=== PATIENT | female | born 1935 | race Caucasian/White ===

== ENCOUNTER 2021-02-05 20:36 | Emergency (ER) | payer MEDICARE, OTHER, SELFPAY ==
--- NOTE | ~2021-02-05 | XR_ITS ---
EXAMINATION: XR hip LT 2V w AP pelvis EXAM DATE: 02/05/2021 21:47 INDICATION: Fall, left hip pain. TECHNIQUE: Left hip frontal, 'frog leg' projections for interpretation. Frontal projection pelvis. There is no prior study for comparison. FINDINGS: Smooth left hip femoral head contour, no radiographic evidence of avascular necrosis. Ther e are no acute fractures or dislocations identified. There is no subcutaneous gas. The soft tissue is unremarkable. 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 IMPRESSION: 1. Pelvis, left hip exam without acute osseous findings. Reviewed, dictated and finalized at location A.
--- NOTE | ~2021-02-05 | CT_ITS ---
EXAMINATION: CTA brain carotid EXAM DATE: 02/06/2021 00:30 INDICATION: Head CT abnormality, headache and dizziness. Twitching left side of body. TECHNIQUE: Spiral CTA of the carotid arteries was performed with intravenous injection 100 cc of Omn ipaque 350. Axial, coronal, sagittal reformatted images reviewed. Additional reformatted images crefransisco lopez on dedicated 3-D workstation. NASCET comparable standard used to assess the degree of arterial s tenosis. Spiral CT angiogram cerebral arteries performed with the same intravenous injection of cont rast. Source images of the brain CTA transferred to dedicated workstation for 3-D rotational image cr eation. Coronal, sagittal maximum intensity pixel images also reviewed. The dose-length product (DL P) for this examination was 907.51 mGy-cm. The exposure was tailored according to patient size, and iterative reconstruction (ASIR) was used as additional dose reduction technique. Correlation is made to noncontrast head CT earlier same date. FINDINGS: There is no carotid bulb plaque or stenosis. Mild bilateral carotid siphon arterial scleros is without stenosis. There is no carotid or vertebral basilar arterial dissection or fibromuscular d ysplasia. There are no cerebral artery aneurysms. There is symmetric cerebral artery arborization. Th e sagittal, transverse and sigmoid sinuses enhance normally, no venous sinus thrombosis. Internal cer ebral veins also enhance normally. No enhancement in the large region of abnormal density involving the medial aspect of the right tempo ral occipital lobe which could be an acute ischemic infarction, less likely subacute hemorrhagic infa rction or other mass. Follow-up head CT or MRI indicated to confirm expected evolution. Incidental Findings: Bilateral upper lobe subsegmental atelectasis. Cataract surgery. Microangiopathy , cerebral atrophy. IMPRESSION: 1. Bilateral carotid 0% stenosis. 2. Right temporal occipital abnormality without underlying enhancing mass. Most likely acute ischemi c infarction. Follow-up to confirm expected evolution. Reviewed, dictated and finalized at location A. IMPRESSION: 1. Bilateral carotid 0% stenosis. 2. Right temporal occipital abnormality without underlying enhancing mass. Mos t likely acute ischemic infarction. Follow-up to confirm expected evolution.
--- NOTE | ~2021-02-05 | CT_ITS ---
EXAMINATION: CT brain wo con EXAM DATE: 02/05/2021 21:36 INDICATION: Seizure. Fall. Uncontrolled movements. TECHNIQUE: Spiral CT of the head was performed without contrast. Axial, coronal and sagittal images were reviewed. The dose-length product (DLP) for this examination was 908.00 mGy-cm. The exposure w as tailored according to patient size, and iterative reconstruction (ASIR) was used as additional dos e reduction technique. There is no prior study for comparison. FINDINGS: Large heterogeneous region involving the white matter of the right temporal occipital lobes , region is ill-defined but measures approximately 5.5 x 2.5 cm. Differential diagnosis includes acut e to subacute infarction, subacute hemorrhagic infarction, brain mass. Please note that no enhancemen t was demonstrated on subsequent CT angiogram. Follow-up to resolution or brain MRI is indicated to c onfirm expected evolution assuming this is a ischemic infarction. There is moderate microangiopathy in mild cerebral atrophy. No calvarial fracture or scalp hematoma. Sinuses and mastoid air cells are well aerated. No obstructive hydrocephalus or extra-axial collectio ns. IMPRESSION: Large amount of right temporal occipital edema involving white more than foley matter. Dif ferential diagnosis includes acute to subacute ischemic infarction, less likely subacute hemorrhagic infarction, possibly underlying brain mass. Recommend follow-up. Patient was transferred to an acute care facility. Reviewed, dictated and finalized at location A. IMPRESSION: Large amount of right temporal occipital edema involving white more than foley matter. Differential diagnosis includes acute to subacute ischemic i nfarction, less likely subacute hemorrhagic infarction, possibly underlying bra in mass. Recommend follow-up. Patient was transferred to an acute care facility.
--- NOTE | ~2021-02-05 | XR_ITS ---
EXAMINATION: XR shoulder LT min 2V EXAM DATE: 02/05/2021 21:47 INDICATION: trauma, fall, left shoulder pain. TECHNIQUE: Frontal and lateral projections of the left shoulder. There is no prior study for compar angie. FINDINGS: There are left 6th through 9th rib fractures posteriorly which appear more likely chronic than acute findings. There is no left shoulder dislocation or fracture identified. Some left upper lo be subsegmental atelectasis. Thoracic scoliosis. IMPRESSION: 1. Left 6th-9th rib fractures more likely chronic. Reviewed, dictated and finalized at location A.
--- NOTE | ~2021-02-05 | XR_ITS ---
EXAMINATION: XR chest 1V EXAM DATE: 02/05/2021 21:47 INDICATION: Shortness of breath . TECHNIQUE: Portable AP frontal chest x-ray was obtained. Comparison is made to prior examination from 01/24/2018. FINDINGS: There is cardiomegaly and pulmonary vascular congestion. Some apical scarring and chondral cartilage calcification. Bilateral upper lobe subsegmental atelectasis (correlation was made with CT carotid 02/05). No confluent consolidation or pneumothorax. No pleural effusion. The bones are osteope yang. There are bony degenerative changes. Severe thoracic dextroscoliosis. IMPRESSION: 1. Cardiomegaly, pulmonary vascular congestion. 2. Linear upper lobe subsegmental atelectasis. Reviewed, dictated and finalized at location A.
[2021-02-05 20:43] VITALS: BP 135/88; PULSE 96; RESP 42; O2SAT 89
[2021-02-05] MEDS: LORazepam INJ (*CRX) 2 MG/ML VIAL (21:08)
[2021-02-05] MEDS: levETIRAcetam 1000MG/NACL100ML 1,000 MG/100 ML BAG 400 MG IVPB (21:21)
[2021-02-05 21:36] LABS: Basophils Absolute Auto 0.1 K/mm3 (0.0-0.1); Basophils Percent Auto 0.5 % (0.2-1.2); Eosinophils Absolute Auto 0.1 K/mm3 (0-0.3); Eosinophils Percent Auto 0.8 % (0-4.4); Hematocrit 43.3 % (37.0-47.0); Immature Granulocyte Absolute 0.05 K/mm3 (0.00-0.031); Immature Granulocyte Percent A 0.5 % (0-0.5); Lymphocytes Absolute Auto 1.14 K/mm3 (0.9-3.2); Lymphocytes Percent Auto 10.3 % (18.3-44.2); Mean Corpuscular HGB Conc 34.6 g/dl (32-36); Mean Corpuscular Hemoglobin 32.4 pg (26-34); Mean Corpuscular Volume 93.5 fl (80-100); Mean Platelet Volume 11.4 fl (7.4-10.4); Monocytes Absolute Auto 0.7 K/mm3 (0.1-0.6); Monocytes Percent Auto 6.1 % (2.6-8.5); Neutrophils Percent Auto 81.8 % (45.5-73.1); Platelet Count Result 172 k/mm3 (150-375); Red Blood Count 4.63 M/mm3 (4.2-5.4); White Blood Count 11.1 K/mm3 (4.5-10.0)
[2021-02-05 21:49] LABS: Prothrombin Time 13.5 Seconds (11.1-14.7)
[2021-02-05 21:50] LABS: Anion Gap 11 mmol/L (8-16); Blood Urea Nitrogen 26 mg/dL (7-17); Calcium 9.8 mg/dL (8.4-10.2); Carbon Dioxide 33 mmol/L (22-30); Chloride 92 mmol/L (98-107); Estimated Glomerular Filt Rate 33; Glucose 165 mg/dL (65-110); Partial Thromboplastin Time 28.1 SECONDS (22.3-36.8); Potassium 3.8 mmol/L (3.4-5.0); Sodium 136 mmol/L (137-145)
[2021-02-05 22:03] LABS: NT Pro B Type Natriuretic Pept 2150 pg/mL (5-100); Troponin I 0.017 ng/mL (0.000-0.034)
[2021-02-05 22:06] VITALS: BP 125/71; PULSE 88; RESP 28; O2SAT 94
--- NOTE | 2021-02-05 23:14 | ED.FALL ---
HPI - Fall General Chief Complaint: Fall Stated Complaint: fall/ shoulder injury Time Seen by Provider: 02/05/21 20:48 History of Present Illness HPI Narrative: Patient is an 85-year-old female who presents ER status post fall. Apparently patient was on the phone and fell onto the ground. She been down for about 45 minutes prior to EMS arrival. Patient is awake and alert but poorly answering questions. She has some rhythmic jerking of her left lower extremity in her left upper extremity. No shortness report was that patient had pain in her left shoulder. She reports that she cannot use her left shoulder chronically and has to use her other arm to assist it and lifting due to rotator cuff issues. Patient has history of atrial fibrillation but is not on blood thinners. No visual evidence of trauma. Upon arrival patient found to be hypoxic. Related Data Home Medications Medication Instructions Recorded Confirmed allopurinol 02/05/21 carvedilol 02/05/21 furosemide 02/05/21 furosemide 02/05/21 metolazone 02/05/21 pantoprazole PO 02/05/21 spironolactone 02/05/21 Allergies Allergy/AdvReac Type Severity Reaction Status Date / Time tramadol Allergy Intermediate Itching Verified 10/01/17 11:08 Review of Systems Review of Systems: ROS unobtainable: Yes unobtainable due to medical condition Cardiovascular: Cardiovascular: Denies chest pain and Denies radiating jaw, neck or arm pain Respiratory: Respiratory: Denies cough, Denies dyspnea and Denies wheezing Musculoskeletal: Musculoskeletal: Reports arthralgias and Denies joint swelling Neurologic: Denies headache(s) and Denies numbness PMFSH Past Medical History Medical History (Updated 02/06/21 @ 03:06 by Deepak Galicia MD) Atrial fibrillation CHF (congestive heart failure) Diabetes Hyperlipidemia Hypertension Surgical History Surgical History (Updated 02/05/21 @ 23:22 by Deepak Galicia MD) History of hysterectomy Social History Social History (Updated 02/05/21 @ 23:22 by Deepak aGlicia MD) 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 HEAD: Normocephalic, atraumatic. EYES: PERRL and EOMI. patient with leftward gaze but is able to come back right of midline. ENT: Dry mucous membranes. CHEST: Clear to auscultation. No respiratory distress. HEART: Regular rate and rhythm. Normal peripheral pulses. ABDOMEN: Soft, nontender, nondistended. EXTREMITIES: Unable to lift the left lower extremity and left arm off the bed but with seizure activity and moves extremities. Normal strength in right upper and lower extremity. SKIN: Warm, dry, no rash. NEURO: Patient with poor effort against gravity in left and left upper and lower extremity. Patient has rhythmic jerking of the left lower extremity and of the left shoulder consistent with seizure. Patient with leftward gaze and partial neglect of the right side however she cannot turn herself over to face right and identify objects on that side. No sensory deficit. No slurred speech or expressive aphasia. Alert and oriented x3. PSYCH: Normal mood and affect. Course Reevaluation(s) Reevaluation #1: Discussed case with patient's daughter and son. Patient's POA Dr. Pizano is an internal medicine physician near [place]. I discussed that there is a poor history of patient's last known normal. He does not think that patient would want TPA therapy. Patient is sleepy and was confused earlier and did not seem to be able to make informed decision of this magnitude. We are contacting [facility] for further evaluation as there is no neurology service present at this hospital this weekend. Date: 02/05/21 Time: 23:19 Reevaluation #2: Discussed case with neurology at [facility]. We have obtained CTA of the brain and neck at their request. No large vessel occlusion. Patient is accepted to their g
[2021-02-05] MEDS: FUROSEMIDE INJ 40 MG/4 ML VIAL IV PUSH (23:32)
[2021-02-06 02:00] VITALS: BP 102/68; PULSE 74; RESP 28; O2SAT 97
[2021-02-06 02:22] LABS: EDCOVIDSCREEN Negative (Negative)
[2021-02-06 03:40] VITALS: BP 100/79; PULSE 79; RESP 22; O2SAT 96
--- NOTE | 2021-02-06 04:42 | PC.NURSE ---
l[facility] transported to [place]
== END 2021-02-06 04:41 | disposition short-term general hospital (02) ==
PROVIDERS: Emergency Provider Emergency Medicine; PCP Family Medicine Adolescent Medicine
DX: I63.9 Cerebral infarction, unspecified (principal); R56.9 Unspecified convulsions; I50.9 Heart failure, unspecified; I11.0 Hypertensive heart disease with heart failure; I48.91 Unspecified atrial fibrillation; E11.9 Type 2 diabetes mellitus without complications; E78.5 Hyperlipidemia, unspecified; Z20.822 Contact with and (suspected) exposure to COVID-19; R29.708 NIHSS score 8; I51.7 Cardiomegaly
CPT/HCPCS: 36415; 70450; 70496; 70498; 71045; 73030; 73502; 80048; 83880; 84484; 85025; 85610; 85730; 87426; 96365; 96375; 99285; C9803; J1940; J1953; J2060; Q9967

== ENCOUNTER 2021-03-05 07:17 | Inpatient (IN) | payer MEDICARE, OTHER, SELFPAY ==
[2021-03-05] VITALS (10 sets, daily range): BP systolic 108–119; BP diastolic 60–71; PULSE 70–96; RESP 16–24; TEMP 36.7–37.8; O2SAT 91–95; BMI 27.7
--- NOTE | ~2021-03-05 | US_ITS ---
EXAMINATION: US venous doppler [facility] DATE: 03/07/2021 08:07 INDICATION: Lower limb swelling TECHNIQUE: Bernard scale images without and with compression and Doppler images of the bilateral lower e xtremity veins were obtained. COMPARISON: 10/01/2017 FINDINGS: There is thrombosis in the right popliteal vein. The right common femoral vein, profunda femoral vein , femoral vein, peroneal trunk, posterior tibial veins, and greater saphenous vein are patent. There is superficial venous thrombosis of the left greater saphenous vein. The left common femoral ve in, profunda femoral vein, femoral vein, popliteal vein, peroneal trunk, and posterior tibial veins a re patent. IMPRESSION: 1. Thrombosis of the right popliteal vein. 2. Superficial venous thrombosis of the left greater saphenous vein. These findings were discussed with TOMASA Ulloa on [facility] at 0814 hours on 03/07/2021. Reviewed, dictated and finalized at location A.
--- NOTE | ~2021-03-05 | XR_ITS ---
EXAMINATION: XR chest 1V portable INDICATION: Shortness of breath TECHNIQUE: Portable AP chest at 0833 hours COMPARISON: 02/05/2021 FINDINGS: There are small pleural effusions. Cardiomegaly is noted. There is a mild diffuse interstit ial pattern. No pneumothorax is identified. There is stable atelectasis of the left midlung zone. Hea led right-sided rib fractures are noted. IMPRESSION: 1. Cardiomegaly with mild pulmonary edema. 2. Small pleural effusions. Reviewed, dictated and finalized at location A.
--- NOTE | ~2021-03-05 | XR_ITS ---
EXAMINATION: XR chest 2V DATE: 03/11/2021 14:12 INDICATION: Congestive heart failure. TECHNIQUE: Frontal and lateral views of the chest were obtained. COMPARISON: Chest single view 03/07/2021, chest CT 03/05/2021 FINDINGS: There are small pleural effusions. There is mild atelectasis in left midlung zone and at le ft lung base. No pneumothorax. Cardiomegaly is noted. There are old healed right rib fractures. There is thoracic dextroscoliosis and kyphosis. There is chronic height loss of multiple vertebral bodies. IMPRESSION: 1. Small pleural effusions. 2. Mild atelectasis in left midlung zone and at left lung base. 3. Cardiomegaly. Reviewed, dictated and finalized at location A.
--- NOTE | ~2021-03-05 | CT_ITS ---
EXAMINATION: CTA chest PE protocol DATE: 03/05/2021 09:50 INDICATION: Shortness of breath, postoperative hypoxia TECHNIQUE: Computed tomography angiography (CTA) of the chest was performed with 100 mL Omnipaque-350 intravenous contrast timed to evaluate the pulmonary arteries. Coronal maximum intensity projection 3D-reconstructions were created by the technologist. The dose-length product (DLP) was 651.46 mGy-cm. Automated exposure control and iterative reconstruction technique were employed. COMPARISON: 01/24/2018 FINDINGS: The pulmonary arteries are well-opacified. No pulmonary embolism is identified. There are s [id number] pleural effusions. Cardiomegaly is noted. There is passive dependent atelectasis. No pneumothorax is identified. There are no pathologically enlarged thoracic lymph nodes. There is nodu larity of the liver surface. There are chronic burst fractures of T7 and T8 without significant carlson e. Multiple healed bilateral rib fractures are noted. IMPRESSION: 1. No pulmonary embolism identified. 2. Small to moderate-sized pleural effusions with dependent atelectasis. 3. Cirrhosis Reviewed, dictated and finalized at location A.
--- NOTE | ~2021-03-05 | XR_ITS ---
EXAMINATION: XR chest 1V EXAM DATE: 03/07/2021 08:09 INDICATION: Shortness of breath. TECHNIQUE: Portable AP frontal chest x-ray was obtained. Comparison is made to prior examination from 03/05/2021. FINDINGS: There is moderate to severe thoracolumbar scoliosis. Cardiomegaly and pulmonary vascular co ngestion. Some linear left midlung zone atelectasis. Improvement in previously seen mild pulmonary ed tiago. There are still some more than expected retrocardiac density, nonspecific airspace disease. Box Feeder yang underlying hyperinflation. No pneumothorax. The bones are osteopenic. There are bony degenerativ e changes. IMPRESSION: 1. Cardiomegaly. Improvement in pulmonary edema. 2. Persistent left lower lobe nonspecific airspace disease. Reviewed, dictated and finalized at location B.
[2021-03-05 07:59] LABS: Alveolar/Arterial O2 Gradient 59.5 mmHg; Base Excess ABG 5.6 mEq/l (+/-2.0); Carboxyhemoglobin 0.7 % THb (0-2.0); Fractional Inspired Oxygen 21 %; Methemoglobin ABG 0.4 %THb (0-1.5); Oxygen Content ABG 16.2 %vol (16.0-22.0); Oxygen Saturation ABG 89.8 % (95.0-100.0); Oxyhemoglobin 86.2 % THb (90.0-100.0); PCO2 ABG 33.7 mmHg (35.0-45.0); PO2 FiO2 Ratio Arterial Blood 2.38 %; Reduced Hemoglobin 12.7 %THb (0-5.0); Total Hemoglobin 13.4 g/dL (12.0-18.0)
[2021-03-05 08:01] LABS: pH ABG 7.538 (7.350-7.450)
[2021-03-05 08:02] LABS: Device ROOM AIR; Modified Allen's Test Pass; PO2 ABG 49.9 mmHg (80.0-100.0); Site Drawn LEFT RADIAL
--- NOTE | 2021-03-05 08:08 | ED.SOB ---
HPI - SOB/Dyspnea General Chief Complaint: Shortness of Breath/Dyspnea Stated Complaint: sob Time Seen by Provider: 03/05/21 07:21 Source: patient and RN notes reviewed Mode of arrival: EMS Limitations: no limitations History of Present Illness HPI Narrative: This is an 85 year old female with history CHF, CVA who presents for evaluation of hypoxia and shortness of breath. Patient reports shortness of breath since she was hospitalized for a stroke 1 month ago. This morning staff at [facility] found patient to have oxygen saturation 86% on room so they placed on [place] oxygen with nebulizer treatment. She was then transferred her to [place] for evaluation. Patient states she feels better but she still has some shortness of breath. She has bilateral rib pain since her hospitalization last month. She reports multiple rib fractures and she has been pulled around alot per patient. She has mild nonproductive cough. She denies nausea, vomiting and unsure of fever. She received her COVID booster yesterday. Patient reports she suffered of left ankle fracture and CVA 1 month ago. She had left ankle surgery 1 month ago during her hospitalization at [facility] for her CVA. Related Data Home Medications Medication Instructions Recorded Confirmed allopurinol 100 mg PO DAILY 02/05/21 03/05/21 carvedilol 3.125 mg PO BID 02/05/21 03/05/21 furosemide 40 mg PO QAM 02/05/21 03/05/21 furosemide 80 mg PO QAM 02/05/21 03/05/21 metolazone 2.5 mg PO DAILY 02/05/21 03/05/21 pantoprazole 40 mg PO DAILY 02/05/21 03/05/21 spironolactone 02/05/21 diclofenac sodium 1 TOPICAL BID 03/05/21 metformin 500 mg PO DAILY 03/05/21 03/05/21 potassium chloride 60 meq PO DAILY 03/05/21 03/05/21 Allergies Allergy/AdvReac Type Severity Reaction Status Date / Time tramadol Allergy Intermediate Itching Verified 10/01/17 11:08 Review of Systems Review of Systems: All systems reviewed & are unremarkable except as noted in HPI and below Constitutional: Constitutional: Denies chills and Denies fever(s) Cardiovascular: Cardiovascular: Reports chest pain and Denies radiating jaw, neck or arm pain Respiratory: Respiratory: Reports cough and Reports dyspnea Gastrointestinal: Gastrointestinal: Denies abdominal pain, Denies nausea and Denies vomiting Neurologic: Denies headache(s) [facility] Past Medical History Medical History (Updated 03/05/21 @ 18:19 by Camille Miramontes MD) Atrial fibrillation CHF (congestive heart failure) CVA (cerebral vascular accident) Diabetes DM2 (diabetes mellitus, type 2) Gout Hyperlipidemia Hypertension Surgical History Surgical History (Updated 03/05/21 @ 15:17 by Zaida Huber NP) History of ankle surgery left ankle x2 History of hysterectomy Family History Family History (Updated 03/05/21 @ 15:23 by Zaida Huber NP) Mother Dementia Father Dementia Social History Social History (Updated 03/05/21 @ 15:24 by Zaida Huber NP) Social History: the patient did live at home on her own until about 1 month ago when she had a stroke and fractured her left ankle. She is and has 3 children. 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 She stated that cyrus and Jorge Luis are her power divorce attorney for healthcare. She stated that her son Cyrus is the physician. Code status full code Smoking status: Never smoker Second hand tobacco smoke exposure: No Alcohol intake: never Substance use: never Spiritual care concerns: No Exam Const: General: no acute distress and alert Orientation/consciousness: patient oriented x3 Eyes: EOM: EOMs intact bilaterally Chest: Chest palpation & inspection: normal inspection of the chest Resp: Effort & Inspection: normal respiratory effort and no retractions Auscultation: clear to auscultation bilaterally Cardio: Rate: regular rate Rhythm: regular rhythm Heart sounds: no murmurs GI: GI Palp: Yes So
[2021-03-05 08:30] LABS: Basophils Percent Auto 0.5 % (0.2-1.2); Eosinophils Percent Auto 0.1 % (0-4.4); Hematocrit 37.8 % (37.0-47.0); Hemoglobin 12.8 g/dL (12.0-15.0); Immature Granulocyte Absolute 0.05 K/mm3 (0.00-0.031); Immature Granulocyte Percent A 0.6 % (0-0.5); Immature Platelet Fraction Pct 3.6 % (0.9-11.2); Lymphocytes Percent Auto 3.8 % (18.3-44.2); Mean Corpuscular HGB Conc 33.9 g/dl (32-36); Mean Corpuscular Hemoglobin 31.2 pg (26-34); Mean Corpuscular Volume 92.2 fl (80-100); Monocytes Absolute Auto 0.4 K/mm3 (0.1-0.6); Platelet Count Result 127 k/mm3 (150-375); Red Cell Distribution Width 14.5 % (11.5-14.5); White Blood Count 7.8 K/mm3 (4.5-10.0)
[2021-03-05 08:31] LABS: Anion Gap 5 mmol/L (8-16); Blood Urea Nitrogen 12 mg/dL (7-17); Calcium 8.7 mg/dL (8.4-10.2); Carbon Dioxide 30 mmol/L (22-30); Chloride 100 mmol/L (98-107); Estimated CRCL calculation 41 ml/min; Estimated Glomerular Filt Rate 60; Glucose 126 mg/dL (65-110); Sodium 135 mmol/L (137-145)
[2021-03-05 08:34] LABS: Alanine Aminotransferase 12 U/L (4-35); Albumin Level 3.3 g/dL (3.5-5.1); Alkaline Phosphatase 192 U/L (38-126); Aspartate Amino Transferase 26 U/L (14-36); Bilirubin,Total 1.4 mg/dL (0.2-1.3); Lipase 40 U/L (23-300)
[2021-03-05 08:43] LABS: NT Pro B Type Natriuretic Pept 3660 pg/mL (5-100); Troponin I < 0.012 ng/mL (0.000-0.034)
[2021-03-05 09:34] LABS: Add Urine Microscopic? YES; Appearance Urine Clear (Clear); Bilirubin Urine Negative (Negative); Blood Urine Negative (Negative); Color Urine Yellow (Yellow); Glucose Urine UA Negative (Negative); Ketones Urine Negative (Negative); Leukocyte Esterase Ur Negative LEU/UL (Negative); Nitrate Urine Negative (Negative); Protein Urine Negative (Negative); RBC Urine 0-2 /hpf (0-2); Specific Grav Ur 1.012 (1.001-1.035); Squamous Epithelial Cell Urine Few /hpf (Few); WBC Urine 0-3 /hpf
[2021-03-05 09:57] LABS: INR 1.2; Prothrombin Time 14.9 Seconds (11.1-14.7)
[2021-03-05 09:58] LABS: Partial Thromboplastin Time 31.2 SECONDS (22.3-36.8)
[2021-03-05] MEDS: FUROSEMIDE INJ 40 MG/4 ML VIAL IV PUSH ×2 (10:22→20:37)
--- NOTE | 2021-03-05 12:29 | ADMGEN ---
This patient, Radha Pizano, was admitted to Medical Room 248-01. Patient oriented to hospital policies and general routines including ID bracelet, bed and alarms, visiting hours, pain management, procedures, bathroom and other care routines, personal items, smoking policy, room service/diet, and visiting hours. Information on how to activate the Rapid Response Team has been discussed. Patient are encouraged to report perceived risks to care and to ask questions if they do not understand what they are told or what they should do.
--- NOTE | 2021-03-05 15:06 | PM.IMHP ---
H&P: HPI History of Present Illness Date/Time: 03/05/21 15:06Opal is a 85-year-old female patient who lives home alone prior to having a stroke and a left ankle fracture. The patient is currently at [facility] for rehab. She has a history of having CHF and CVA. She was brought into the emergency room for evaluation of shortness of breath. The patient stated that she has shortness breath with exertion that started today. She does not typically wear oxygen at the skilled nursing. Patient had her stroke approximately 1 month ago and had her left ankle surgery At [facility]. The patient's oxygen levels on be 86% on room air at [facility]. So she was placed on oxygen and given a nebulizer treatment. She was transferred to [facility] for evaluation. The patient has multiple rib fractures on the right. She has a mild nonproductive cough. She just had her booster vaccine of the Pfizer COVID-19 yesterday. Prior to that she has been fully vaccinated. BNP was 3660. Chest x-ray was read as cardiomegaly with mild pulmonary edema. Small pleural effusions. Chest CTA was read as no pulmonary emboli identified. Small to moderate size pleural effusions with dependent atelectasis. Cirrhosis. The patient was given IV Lasix in the emergency room. The patient is being admitted to observation status on the date of service of 03/05/2021 Chief Complaint: Shortness of breath Review of Systems Review of Systems: All systems reviewed & are unremarkable except as noted in HPI and below Constitutional: Constitutional: Reports as per HPI and Reports no additional constitutional complaints Eyes: Eyes: Reports as per HPI and Reports no additional eye complaints ENT: Reports system reviewed and no additional complaints, except as documented and Reports Normal hearing present Cardiovascular: Cardiovascular: Reports no additional cardiovascular complaints Respiratory: Respiratory: Reports no additional respiratory complaints and Reports no additional respiratory complaints Gastrointestinal: Gastrointestinal: Reports as per HPI and Reports no additional gastrointestinal complaints Musculoskeletal: Musculoskeletal: Reports no additional musculoskeletal complaints Integumentary/Breasts: Skin/Breast: Reports system reviewed and no additional complaints, except as docu and Reports as per HPI Neurologic: Reports system reviewed and no additional complaints, except as documented, Reports as per HPI and Reports Normal hearing present Psychiatric: Psychiatric: Reports no additional psychiatric complaints and Reports as per HPI Endocrine: Endocrine: Reports no additional endocrine complaints Hematologic/Lymphatic: Hematologic/Lymphatic: Reports no additional hematologic/lymphatic complaints Allergic/Immunologic: Allergic/Immunologic: Reports no additional allergic/immunologic complaints PMFSH Past Medical History Medical History (Updated 03/05/21 @ 15:35 by Zaida Huber NP) Atrial fibrillation CHF (congestive heart failure) CVA (cerebral vascular accident) Diabetes DM2 (diabetes mellitus, type 2) Gout Hyperlipidemia Hypertension Surgical History Surgical History (Updated 03/05/21 @ 15:17 by Zaida Huber NP) History of ankle surgery left ankle x2 History of hysterectomy Family History Family History (Updated 03/05/21 @ 15:23 by Zaida Huber NP) Mother Dementia Father Dementia Social History Social History (Updated 03/05/21 @ 15:24 by Zaida Huber NP) Social History: the patient did live at home on her own until about 1 month ago when she had a stroke and fractured her left ankle. She is and has 3 children. 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 She stated that cyrus and Jorge Luis are her power insurance attorney for healthcare. She stated that her son Cyrus is the physician. Code status full code Smoking status: Never smoker Jeanne
[2021-03-05] MEDS: LIDOCAINE 5% PATCH 1 PATCH TRANSDERM ×2 (17:35)
[2021-03-05] MEDS: carvediloL 3.125 MG TABLET PO (17:36)
[2021-03-05 17:56] LABS: Glucose Point of Care 121 mg/dl (65-105)
[2021-03-05 21:09] LABS: Glucose Point of Care 139 mg/dl (65-105)
[2021-03-06] VITALS (12 sets, daily range): BP systolic 103–129; BP diastolic 60–89; PULSE 73–91; RESP 18–20; TEMP 36.1–36.5; O2SAT 92–97
[2021-03-06 05:25] LABS: Basophils Absolute Auto 0.1 K/mm3 (0.0-0.1); Basophils Percent Auto 0.7 % (0.2-1.2); Eosinophils Absolute Auto 0.1 K/mm3 (0-0.3); Eosinophils Percent Auto 1.9 % (0-4.4); Hematocrit 37.1 % (37.0-47.0); Hemoglobin 12.4 g/dL (12.0-15.0); Immature Granulocyte Absolute 0.05 K/mm3 (0.00-0.031); Immature Granulocyte Percent A 0.7 % (0-0.5); Immature Platelet Fraction Pct 4.8 % (0.9-11.2); Lymphocytes Absolute Auto 0.67 K/mm3 (0.9-3.2); Lymphocytes Percent Auto 9.8 % (18.3-44.2); Mean Corpuscular HGB Conc 33.4 g/dl (32-36); Mean Corpuscular Hemoglobin 30.7 pg (26-34); Mean Corpuscular Volume 91.8 fl (80-100); Mean Platelet Volume 10.4 fl (7.4-10.4); Monocytes Absolute Auto 0.6 K/mm3 (0.1-0.6); Monocytes Percent Auto 8.7 % (2.6-8.5); Neutrophils Absolute Auto 5.4 K/mm3 (1.3-6.7); Neutrophils Percent Auto 78.2 % (45.5-73.1); Platelet Count Result 122 k/mm3 (150-375); Red Blood Count 4.04 M/mm3 (4.2-5.4); Red Cell Distribution Width 14.6 % (11.5-14.5); White Blood Count 6.9 K/mm3 (4.5-10.0)
[2021-03-06 05:41] LABS: Sodium 135 mmol/L (137-145)
[2021-03-06 05:45] LABS: Hemoglobin A1C 6.6 % (<5.7)
[2021-03-06 05:49] LABS: Alanine Aminotransferase 12 U/L (4-35); Alkaline Phosphatase 176 U/L (38-126); Anion Gap 5 mmol/L (8-16); Aspartate Amino Transferase 23 U/L (14-36); Bilirubin,Total 0.9 mg/dL (0.2-1.3); Blood Urea Nitrogen 12 mg/dL (7-17); Calcium 8.4 mg/dL (8.4-10.2); Carbon Dioxide 32 mmol/L (22-30); Chloride 98 mmol/L (98-107); Estimated CRCL calculation 38 ml/min; Estimated Glomerular Filt Rate 53; Glucose 108 mg/dL (65-110); Lactate Dehydrogenase 436 U/L (313-618); Magnesium 1.5 mg/dL (1.6-2.3); Potassium 3.2 mmol/L (3.4-5.0)
[2021-03-06 07:50] LABS: Glucose Point of Care 126 mg/dl (65-105)
--- NOTE | 2021-03-06 09:06 | PC.NURSE ---
unable to apply lidocaine patches on time. waiting for pharmacy to send them up. pharmacy notified
[2021-03-06] MEDS: metFORMIN HCL XR 500 MG TAB.SR.24H PO (09:09)
[2021-03-06] MEDS: FUROSEMIDE INJ 40 MG/4 ML VIAL IV PUSH ×2 (09:09→20:46)
[2021-03-06] MEDS: ENOXAPARIN 40 MG/0.4 ML SYRINGE SUB-Q (09:09)
[2021-03-06] MEDS: PANTOPRAZOLE 40 MG TABLET PO (09:09)
[2021-03-06] MEDS: carvediloL 3.125 MG TABLET PO ×2 (09:10→16:46)
[2021-03-06] MEDS: metOLazone 2.5 MG TABLET PO (09:10)
[2021-03-06] MEDS: allopurinoL 100 MG TABLET PO (09:10)
[2021-03-06] MEDS: POTASSIUM CHLORIDE 10 MEQ TABLET.ER 60 MEQ PO (09:10)
[2021-03-06] MEDS: LIDOCAINE 5% PATCH 1 PATCH TRANSDERM ×2 (09:11→20:46)
[2021-03-06 11:55] LABS: Glucose Point of Care 172 mg/dl (65-105)
[2021-03-06] MEDS: MAGNESIUM SULF 2 GM/WATER 50ML 2 GM/50 ML BAG IVPB (13:36)
[2021-03-06] MEDS: POTASSIUM CHLORIDE 20 MEQ TABLET 40 MEQ PO (13:36)
--- NOTE | 2021-03-06 15:33 | ECG_ITS ---
Measurements Intervals [place] Rate: 73 P: ND: 0 QRS: -12 QRSD: 95 T: -36 QT: 382 QTc: 422 Interpretive Statements ATRIAL FIBRILLATION INCOMPLETE RIGHT BUNDLE BRANCH BLOCK ANTEROSEPTAL INFARCT, AGE INDETERMINATE BORDERLINE T WAVE ABNORMALITY- DIFFUSE LEADS ABNORMAL ECG Electronically Signed On 03-06-2021 9:34:52 CDT by Stephen Osman D.O.
--- NOTE | 2021-03-06 15:54 | PM.IMPN ---
Progress Note: A&P Assessment and Plan (1) CHF (congestive heart failure): Code(s): I50.9 - Heart failure, unspecified Status: Chronic Assessment and Plan: continue with IV Lasix and Coreg. Echo has been ordered. CTA was negative for PE but shows moderate size pleural effusions and dependent atelectasis. The patient is currently on oxygen at 3 L per nasal cannula. She is short of breath with exertion. The patient does not typically wear oxygen at home. She states she normally takes 120 mg of Lasix along with potassium supplement Currently on 40 twice a day of IV Lasix Output has not been charted. Check echo (2) Atrial fibrillation: Code(s): I48.91 - Unspecified atrial fibrillation Status: Chronic Assessment and Plan: EKG with AFib rate controlled She is on Coreg. She does not appear to be on any anticoagulation. The patient does have a history of multiple falls. (3) CVA (cerebral vascular accident): Code(s): I63.9 - Cerebral infarction, unspecified Status: Chronic Assessment and Plan: No residual noted at this time. PT OT will be consulted (4) Hyperlipidemia: Code(s): E78.5 - Hyperlipidemia, unspecified Status: Chronic Assessment and Plan: the patient does not appear to be on any medication at this time. (5) Hypertension: Code(s): I10 - Essential (primary) hypertension Status: Chronic Assessment and Plan: Continue with Coreg (6) Gout: Code(s): M10.9 - Gout, unspecified Status: Chronic Assessment and Plan: continue with allopurinol (7) DM2 (diabetes mellitus, type 2): Code(s): E11.9 - Type 2 diabetes mellitus without complications Status: Chronic Assessment and Plan: Continue with metformin. Do sliding scale insulin. Monitor BMP daily. Accu-Cheks AC and HS. (8) Cirrhosis: Code(s): K74.60 - Unspecified cirrhosis of liver Status: Acute Assessment and Plan: Noted in CT scan chest. Likely cardiac in origin due to underlying history of congestive heart failure or HANSEN due to history of diabetes and hypertension (9) Hypomagnesemia: Code(s): E83.42 - Hypomagnesemia Status: Acute Assessment and Plan: Replace Subjective Date/time seen: 03/06/21 15:54 Interval history: HPI:This is a 85-year-old female patient who lives home alone prior to having a stroke and a left ankle fracture. The patient is currently at [facility] for rehab. She has a history of having CHF and CVA. She was brought into the emergency room for evaluation of shortness of breath. The patient stated that she has shortness breath with exertion that started today. She does not typically wear oxygen at the longterm. Patient had her stroke approximately 1 month ago and had her left ankle surgery At [facility]. The patient's oxygen levels on be 86% on room air at [facility]. So she was placed on oxygen and given a nebulizer treatment. She was transferred to [facility] for evaluation. The patient has multiple rib fractures on the right. She has a mild nonproductive cough. She just had her booster vaccine of the Pfizer COVID-19 yesterday. Prior to that she has been fully vaccinated. BNP was 3660. Chest x-ray was read as cardiomegaly with mild pulmonary edema. Small pleural effusions. Chest CTA was read as no pulmonary emboli identified. Small to moderate size pleural effusions with dependent atelectasis. Cirrhosis. The patient was given IV Lasix in the emergency room. The patient is being admitted to observation status on the date of service of 03/05/2021 Interval history: She feeling better than yesterday was still feel short of breath. Her leg swelling has improved. No chest pain no cough Review of Systems Review of Systems: All systems reviewed & are unremarkable except as noted in HPI and below Exam Narrative: GENERAL: The
[2021-03-06 16:36] LABS: Glucose Point of Care 104 mg/dl (65-105)
[2021-03-06 21:42] LABS: Glucose Point of Care 123 mg/dl (65-105)
[2021-03-07] VITALS (13 sets, daily range): BP systolic 98–113; BP diastolic 55–69; PULSE 74–90; RESP 18–20; TEMP 36.5–37.1; O2SAT 92–100; BMI 27.7
--- NOTE | 2021-03-07 | ECHO_ITS ---
Patient Info Name: Radha Pizano Age: 85 years : 1935 Gender: Female Ht: 66 in Wt: 171 lbs BSA: 1.92 m2 HR: 72 bpm BP: 103 / 89 mmHg Heart Rhythm: Atrial Fibrillation Technical Quality: Fair Exam Date: 03/07/2021 9:58 AM Exam Location: [facility] Pulmonary Patient Status: Inpatient Admit Date: 03/06/2021 Staff Ordering Physician: Julien Taylor MD Skin Pass Operator: Lisa Lucas RDCS Attending Provider: Crystal Ji MD Exam Type: CA echo doppler color flow Study Info Indications - CHF Complete two-dimensional, color flow and Doppler transthoracic echocardiogram is performed. Summary 1. Complete two-dimensional, color flow and Doppler transthoracic echocardiogram is performed. 2. Left ventricular chamber dimension is normal. 3. Left ventricular systolic function is normal, estimated at 55-60%. 4. Severe biatrial dilation. 5. Trivial amount of mitral regurgitation. Left Ventricle Left ventricular chamber dimension is normal. Left ventricular systolic function is normal, estimated at 55-60%. The left ventricular diastolic function is indeterminate. Right Ventricle Right ventricular chamber dimension is normal. Left Atria Left atrial chamber dimension is severely enlarged. Right Atria Right atrial chamber dimension is severely enlarged. Aortic Valve The aortic valve is normal. Pulmonic Valve The pulmonic valve is normal. Mitral Valve The mitral valve has normal leaflets. There is trace mitral valve regurgitation. Tricuspid Valve The tricuspid valve leaflets are normal. There is mild tricuspid valve regurgitation. Pericardium/Pleural The pericardium appears normal. Aorta The aortic root size at the sinus of Valsalva is normal. Left Ventricular Outflow Tract Name Value Normal LVOT 2D LVOT Diameter 1.9 cm LVOT Doppler LVOT Peak Gradient 2 mmHg LVOT Mean Gradient 1 mmHg LVOT VTI 17 cm LVOT VTI/AV VTI Ratio 1.0 LVOT Stroke Volume 48 ml LVOT CO 2.7 l/min LVOT CI 1.4 l/min/m2 Pulmonic Valve Name Value Normal RVOT Doppler RVOT Peak Gradient 1 mmHg PV Doppler PV Peak Gradient 4 mmHg Mitral Valve Name Value Normal MV Doppler MV Decel Carson 406 cm/s2 MV PHT 63 ms
[2021-03-07 05:38] LABS: Basophils Absolute Auto 0.1 K/mm3 (0.0-0.1); Basophils Percent Auto 0.8 % (0.2-1.2); Eosinophils Absolute Auto 0.2 K/mm3 (0-0.3); Eosinophils Percent Auto 2.5 % (0-4.4); Immature Granulocyte Absolute 0.05 K/mm3 (0.00-0.031); Immature Granulocyte Percent A 0.6 % (0-0.5); Lymphocytes Percent Auto 7.9 % (18.3-44.2); Mean Corpuscular HGB Conc 33.3 g/dl (32-36); Mean Corpuscular Hemoglobin 31.5 pg (26-34); Mean Corpuscular Volume 94.4 fl (80-100); Mean Platelet Volume 10.3 fl (7.4-10.4); Monocytes Absolute Auto 0.7 K/mm3 (0.1-0.6); Monocytes Percent Auto 8.3 % (2.6-8.5); Neutrophils Percent Auto 79.9 % (45.5-73.1); Platelet Count Result 150 k/mm3 (150-375); Red Blood Count 4.13 M/mm3 (4.2-5.4); Red Cell Distribution Width 14.5 % (11.5-14.5); White Blood Count 8.8 K/mm3 (4.5-10.0)
[2021-03-07 06:07] LABS: Anion Gap 3 mmol/L (8-16); Blood Urea Nitrogen 14 mg/dL (7-17); Calcium 9.1 mg/dL (8.4-10.2); Carbon Dioxide 36 mmol/L (22-30); Chloride 94 mmol/L (98-107); Estimated CRCL calculation 32 ml/min; Estimated Glomerular Filt Rate 43; Glucose 116 mg/dL (65-110); Potassium 3.6 mmol/L (3.4-5.0); Sodium 133 mmol/L (137-145)
--- NOTE | 2021-03-07 07:30 | PC.NURSE ---
To Ultrasound via stretcher.
--- NOTE | 2021-03-07 08:03 | PM.IMPN ---
Progress Note: A&P Assessment and Plan (1) CHF (congestive heart failure): Code(s): I50.9 - Heart failure, unspecified Status: Chronic Assessment and Plan: continue with IV Lasix and Coreg. Echo has been ordered. CTA was negative for PE but shows moderate size pleural effusions and dependent atelectasis. The patient is currently on oxygen at 3 L per nasal cannula. She is short of breath with exertion. The patient does not typically wear oxygen at home. She states she normally takes 120 mg of Lasix along with potassium supplement Currently on 40 twice a day of IV Lasix Output has not been charted. She is incontinent to urine Chest x-ray repeated today with improved congestion Echo done today which is pending report She sees Dr. Luke for cardiology and will consult him (2) Atrial fibrillation: Code(s): I48.91 - Unspecified atrial fibrillation Status: Chronic Assessment and Plan: EKG with AFib rate controlled She is on Coreg. She does not appear to be on any anticoagulation. The patient does have a history of multiple falls. (3) CVA (cerebral vascular accident): Code(s): I63.9 - Cerebral infarction, unspecified Status: Chronic Assessment and Plan: No residual noted at this time. PT OT will be consulted (4) Hyperlipidemia: Code(s): E78.5 - Hyperlipidemia, unspecified Status: Chronic Assessment and Plan: the patient does not appear to be on any medication at this time. (5) Hypertension: Code(s): I10 - Essential (primary) hypertension Status: Chronic Assessment and Plan: Continue with Coreg (6) Gout: Code(s): M10.9 - Gout, unspecified Status: Chronic Assessment and Plan: continue with allopurinol (7) DM2 (diabetes mellitus, type 2): Code(s): E11.9 - Type 2 diabetes mellitus without complications Status: Chronic Assessment and Plan: Continue with metformin. Do sliding scale insulin. Monitor BMP daily. Accu-Cheks AC and HS. (8) Cirrhosis: Code(s): K74.60 - Unspecified cirrhosis of liver Status: Acute Assessment and Plan: Noted in CT scan chest. Likely cardiac in origin due to underlying history of congestive heart failure or HANSEN due to history of diabetes and hypertension (9) Hypomagnesemia: Code(s): E83.42 - Hypomagnesemia Status: Acute Assessment and Plan: Replace (10) Acute DVT (deep venous thrombosis): Code(s): I82.409 - Acute embolism and thrombosis of unspecified deep veins of unspecified lower extremity Status: Acute Assessment and Plan: 1. Thrombosis of the right popliteal vein. 2. Superficial venous thrombosis of the left greater saphenous vein. Will start her on Lovenox therapeutic dose may switch to Xarelto or Eliquis at the time of discharge. Subjective Date/time seen: 03/07/21 08:03 Interval history: HPI:This is a 85-year-old female patient who lives home alone prior to having a stroke and a left ankle fracture. The patient is currently at [facility] for rehab. She has a history of having CHF and CVA. She was brought into the emergency room for evaluation of shortness of breath. The patient stated that she has shortness breath with exertion that started today. She does not typically wear oxygen at the [place] [facility]. Patient had her stroke approximately 1 month ago and had her left ankle surgery At [facility]. The patient's oxygen levels on be 86% on room air at [facility]. So she was placed on oxygen and given a nebulizer treatment. She was transferred to [facility] for evaluation. The patient has multiple rib fractures on the right. She has a mild nonproductive cough. She just had her booster vaccine of the Pfizer COVID-19 yesterday. Prior to that she has been fully vaccinated. BNP was 3660. Chest x-ray was read as cardiomegaly with mild pulmonary edema. Small ple
--- NOTE | 2021-03-07 08:15 | PC.NURSE ---
Returned from ultrasound via stretcher.
[2021-03-07] MEDS: LIDOCAINE 5% PATCH 1 PATCH TRANSDERM ×2 (09:18→20:22)
[2021-03-07] MEDS: metOLazone 2.5 MG TABLET PO (09:19)
[2021-03-07] MEDS: metFORMIN HCL XR 500 MG TAB.SR.24H PO (09:19)
[2021-03-07] MEDS: allopurinoL 100 MG TABLET PO (09:19)
[2021-03-07] MEDS: PANTOPRAZOLE 40 MG TABLET PO (09:19)
[2021-03-07] MEDS: MAGNESIUM OXIDE 400 MG TABLET PO (09:22)
[2021-03-07] MEDS: FUROSEMIDE INJ 40 MG/4 ML VIAL IV PUSH (09:22)
[2021-03-07] MEDS: POTASSIUM CHLORIDE 10 MEQ TABLET.ER 60 MEQ PO (09:23)
[2021-03-07] MEDS: carvediloL 3.125 MG TABLET PO ×2 (09:24→16:31)
[2021-03-07 09:37] LABS: Glucose Point of Care 186 mg/dl (65-105)
[2021-03-07] MEDS: ENOXAPARIN 80 MG/0.8 ML SYRINGE SUB-Q ×2 (10:12→20:21)
--- NOTE | 2021-03-07 11:07 | PCOTNOTE ---
Addendum entered by Angela Fernandes OT 03/07/21 11:17: Dr. Pringle's office # [phone] Original Note: Spoke with Dr. Kelsey Pringle's Office, Orthopaedic Surgeon at [place] who performed L ankle surgery ~4 weeks ago, re: pt.'s boot schedule for wear. Office reports that pt. should wear boot at all times when she is up and out of bed, she can boot off in bed when sleeping, as long as she is not moving around too much. Will discuss with pt. and nurse
[2021-03-07 11:50] LABS: Glucose Point of Care 147 mg/dl (65-105)
--- NOTE | 2021-03-07 14:41 | PM.CNCAR ---
Assessment and Plan Additional Plan this is an 85-year-old woman with: Some shortness of breath and bilateral pleural effusions. It is reasonable to attempt to treat these with diuretics however she is used to taking a very high dose of furosemide at baseline. She also has chronic atrial fibrillation and a history of diastolic noncompliance. Following several years of adamantly refusing anticoagulation she now is reconsidering that decision and is being treated with Lovenox. I am going to switch the furosemide to Bumex 2 mg q.12 hours and assess her diuretic response. Her workup of her atrial fibrillation I do not think has to be repeated in this hospital. She had an echocardiogram this morning which I have not yet been upstairs to read. Aubrey Martini MD [facility] History of Present Illness History of Present Illness Consult date/time: 03/07/21 14:41 Consult reason: atrial fibrillation and congestive heart failure Reason For Visit: CHF exacebation/acute respiratory failure with hyp Narrative: this is an 85-year-old woman who I have not seen previously. She apparently is known to and followed by Dr. Luke of our practice. She is followed our office because of a history of chronic atrial fibrillation and she is being managed with rate control with no anticoagulation because of her desire to decline anticoagulation. She has a history of atrial fibrillation I dating back to 2016 I believe she was cardioverted at that time maintained sinus rhythm for a short time and then had recurrence of atrial fibrillation. She does have a history of some diastolic noncompliance and there was concern in the past on 1 occasion as as to coronary disease. I believe in 2017 she underwent a right and left heart catheterization which demonstrated no significant obstructive coronary disease. She was complaining of dyspnea at that time and diuretic therapy was used to treat that. She was anticoagulated and I believe that was stopped in 2018 when she was admitted with severe anemia in the setting of anticoagulation and frequent falling. She was taking apixaban at that time. I also believe she was found at that time to have hepatic cirrhosis. She was last seen in our office in January of this year by Dr. Luke and did not report any new cardiac symptomatology. She was hospitalized last month at [place] with a stroke. She was managed conservatively and once again refused anticoagulation. She was sent to a local skilled care facility for recovery after this she was noted to be some somewhat short of breath with hypoxia and was sent back to the emergency room and [place] for further evaluation her chest x-ray shows bilateral pleural effusions. She normally takes a fairly high dose of furosemide 120 mg daily. In addition to this she takes 2.5 mg of metolazone daily. She is currently receiving furosemide at a lower dose than this intravenously. In this setting we are seeing her in consultation. She is supine in bed and appears to be in no significant distress with modest activity she reports to be short of breath. The patient states that she got her 3rd coronavirus shot recently for the booster and was suspicious that the symptoms were caused by that. In the hospital this morning she had a venous Doppler study done which does demonstrate a right popliteal DVT. Apparently now she because of that she has been agreeable to anticoagulation and she is receiving Lovenox. Review of Systems Constitutional: Constitutional: Reports weakness Eyes: Eyes: Reports no additional eye complaints ENT: Reports system reviewed and no additional complaints, except as documented Cardiovascular: Cardiovascular: Reports as per HPI Respiratory: Respiratory: Reports dyspnea on exertion Gastrointestinal: Gastrointestinal: Reports no additional gastrointestinal complaints Musculoskeletal: Musculoskeletal: Reports myalgias Integumentary/Breasts: Skin/Breast: Reports system review
[2021-03-07] MEDS: BUMETANIDE INJ 2.5 MG/10 ML VIAL 2 MG IV PUSH (16:29)
[2021-03-07 16:42] LABS: Glucose Point of Care 104 mg/dl (65-105)
[2021-03-07 21:02] LABS: Glucose Point of Care 159 mg/dl (65-105)
[2021-03-08] VITALS (12 sets, daily range): BP systolic 98–115; BP diastolic 56–69; PULSE 75–87; RESP 18–20; TEMP 36.1–36.3; O2SAT 93–100
[2021-03-08 05:53] LABS: Basophils Absolute Auto 0.1 K/mm3 (0.0-0.1); Basophils Percent Auto 0.9 % (0.2-1.2); Eosinophils Absolute Auto 0.2 K/mm3 (0-0.3); Eosinophils Percent Auto 3.1 % (0-4.4); Hematocrit 37.1 % (37.0-47.0); Hemoglobin 12.5 g/dL (12.0-15.0); Immature Granulocyte Absolute 0.03 K/mm3 (0.00-0.031); Immature Granulocyte Percent A 0.5 % (0-0.5); Lymphocytes Absolute Auto 0.91 K/mm3 (0.9-3.2); Mean Corpuscular HGB Conc 33.7 g/dl (32-36); Mean Corpuscular Hemoglobin 30.7 pg (26-34); Mean Corpuscular Volume 91.2 fl (80-100); Mean Platelet Volume 11.2 fl (7.4-10.4); Monocytes Absolute Auto 0.7 K/mm3 (0.1-0.6); Monocytes Percent Auto 10.2 % (2.6-8.5); Neutrophils Absolute Auto 4.6 K/mm3 (1.3-6.7); Neutrophils Percent Auto 71.3 % (45.5-73.1); Platelet Count Result 145 k/mm3 (150-375); Red Blood Count 4.07 M/mm3 (4.2-5.4); Red Cell Distribution Width 14.2 % (11.5-14.5); White Blood Count 6.5 K/mm3 (4.5-10.0)
[2021-03-08 05:54] LABS: Anion Gap 7 mmol/L (8-16); Blood Urea Nitrogen 21 mg/dL (7-17); Calcium 8.8 mg/dL (8.4-10.2); Carbon Dioxide 36 mmol/L (22-30); Chloride 89 mmol/L (98-107); Estimated CRCL calculation 36 ml/min; Estimated Glomerular Filt Rate 43; Glucose 115 mg/dL (65-110); Magnesium 1.9 mg/dL (1.6-2.3); Potassium 3.4 mmol/L (3.4-5.0); Sodium 132 mmol/L (137-145)
[2021-03-08 08:08] LABS: Glucose Point of Care 120 mg/dl (65-105)
--- NOTE | 2021-03-08 09:44 | P.CDI_ITS ---
CDI Query Clarification Request 1) -CHF and continue with IV Lasix has been documented -Shortness of breath with exertion, and she has a mild nonproductive cough documented. Her leg swelling has improved documented -Lasix 40mg IV q 12hrs ordered then changed to Bumex 2mg IV BID -03/07 Echo summary: EF 55-60%, left ventricular diastolic function is indeterminate Please further specify type and acuity of CHF: * Systolic *Acute * Diastolic *Chronic * Both systolic and diastolic *Acute on chronic * Unable to determine *Unable to determine 2) -Acute DVT documented 03/07 -Pt admitted 03/05 Please clarify if DVT was: * Present on admission * Not present on admission * Unable to determine <Zulma Meade RN - Last Filed: 03/08/21 10:05> Clarified Diagnosis (1) Acute on chronic systolic (congestive) heart failure: Code(s): I50.23 - Acute on chronic systolic (congestive) heart failure <Zulma Meade RN - Last Filed: 03/08/21 10:05> Status: Acute <Zulma Meade RN - Last Filed: 03/08/21 10:05> Assessment and Plan: most likely patient patient has acute on chronic sysytolic CHF. <Joanie Guerra MD - Last Filed: 03/13/21 12:09> (2) Acute DVT (deep venous thrombosis): Code(s): I82.409 - Acute embolism and thrombosis of unspecified deep veins of unspecified lower extremity <Zulma Meade RN - Last Filed: 03/08/21 10:05> Status: Acute <Zulma Meade RN - Last Filed: 03/08/21 10:05> Assessment and Plan: Acute DVT POA <Joanie Guerra MD - Last Filed: 03/13/21 12:09>
[2021-03-08] MEDS: metOLazone 2.5 MG TABLET PO (09:56)
[2021-03-08] MEDS: carvediloL 3.125 MG TABLET PO ×2 (09:56→16:51)
[2021-03-08] MEDS: PANTOPRAZOLE 40 MG TABLET PO (09:57)
[2021-03-08] MEDS: POTASSIUM CHLORIDE 10 MEQ TABLET.ER 60 MEQ PO (09:57)
[2021-03-08] MEDS: MAGNESIUM OXIDE 400 MG TABLET PO (09:58)
[2021-03-08] MEDS: metFORMIN HCL XR 500 MG TAB.SR.24H PO (09:58)
[2021-03-08] MEDS: LIDOCAINE 5% PATCH 1 PATCH TRANSDERM ×2 (09:59→21:03)
[2021-03-08] MEDS: allopurinoL 100 MG TABLET PO (09:59)
[2021-03-08] MEDS: BUMETANIDE INJ 2.5 MG/10 ML VIAL 2 MG IV PUSH ×2 (10:08→16:51)
[2021-03-08] MEDS: ENOXAPARIN 80 MG/0.8 ML SYRINGE SUB-Q ×2 (10:09→21:03)
--- NOTE | 2021-03-08 11:03 | PM.PNCARD ---
Progress Note: A&P Assessment and Plan (1) Acute on chronic diastolic (congestive) heart failure: Code(s): I50.33 - Acute on chronic diastolic (congestive) heart failure Status: Acute Assessment and Plan: Volume status is improving. Continue diuresis, currently on bumetanide and low-dose metolazone. Monitor I's and O's, and electrolytes/renal function. Patient has been on maintenance diuresis as an outpatient due to propensity for significant volume overload with her underlying preserved ejection fraction. (2) Atrial fibrillation: Code(s): I48.91 - Unspecified atrial fibrillation Status: Chronic Assessment and Plan: Rate controlled with carvedilol. Previously was not on anticoagulation due to history of GI bleed and followed by persistent reluctance for anticoagulation. Option of left atrial appendage occlusion was discussed with the patient previously. At that time, she was in the pre contemplative stage. Currently, patient has been initiated on low-molecular weight heparin for anticoagulation, which can be switched to one of the direct oral anticoagulants (apixaban or rivaroxaban) during hospitalization prior to discharge. If patient is unable to tolerate chronic anticoagulation in future, then will strongly recommend left atrial appendage occluder device (Watchman or Amulet occluder). (3) CVA (cerebral vascular accident): Code(s): I63.9 - Cerebral infarction, unspecified Status: Chronic Assessment and Plan: Continue PT OT (4) Acute DVT (deep venous thrombosis): Code(s): I82.409 - Acute embolism and thrombosis of unspecified deep veins of unspecified lower extremity Status: Acute Assessment and Plan: Currently on anticoagulation with low-molecular weight heparin Subjective Date/time seen: 03/08/21 11:03 Date of service 03/08/2021-patient was sitting up in the chair at the time of evaluation. She was undergoing PT OT. She denied any ongoing chest pain or shortness of breath. Patient has been in atrial fibrillation with controlled ventricular response. She has been initiated on anticoagulation with low-molecular weight heparin. Exam Narrative: PHYSICAL EXAMINATION: GENERAL: Alert, oriented, no acute distress MENTAL STATUS: affect appropriate to mood EYES: Extraocular movements intact, no pallor EARS: External ears appear normal, hearing grossly normal NOSE: Normal and patent, no discharge MOUTH: Mucous membranes moist, tongue normal NECK: Supple, no JVD CHEST: Good respiratory effort, clear to auscultation HEART: Normal rate, irregularly irregular ABDOMEN: Soft, nontender NEUROLOGICAL: Alert, oriented, normal speech, no gross motor deficits MUSCULOSKELETAL: Kyphosis EXTREMITIES: No pedal edema SKIN: no cyanosis PSYCHIATRIC: Normal mood, appropriate affect Objective Data Vital Signs Vital Signs: Vital Signs - 24 hr 03/07/21 12:00 03/07/21 14:00 03/07/21 16:00 Temperature 37.1 C Pulse Rate 74 74 83 Respiratory Rate 18 Blood Pressure 113/69 Pulse Oximetry 99 03/07/21 16:31 03/07/21 20:00 03/07/21 21:15 Temperature 36.5 C Pulse Rate 83 78 82 Respiratory Rate 18 Blood Pressure 98/55 L Pulse Oximetry 92 100 03/07/21 21:43 03/08/21 00:00 03/08/21 04:00 Temperature Pulse Rate 75 80 Respiratory Rate Blood Pressure Pulse Oximetry 97 03/08/21 04:30 03/08/21 08:00 03/08/21 09:56 Temperature 36.1 C L Pulse Rate 83 79 80 Respiratory Rate 20 20 Blood Pressure 98/56 L Pulse Oximetry 97 96 Intake/Output Intake/Output: Intake & Output 03/05/21 03/06/21 03/07/21 03/08/21 23:59 23:59 23:59 23:59 Intake Total 162 390 4865 480 Balance 086 805 6343 480 Meds/Results Medications: Active Medications Generic Name Dose Route Start Last Admin Trade Name Freq PRN Reason Stop Dose Admin Allopurinol 100 mg 03/06/21 09:00 03/08/21 09:59 Allopurinol 100 Mg Tablet
--- NOTE | 2021-03-08 11:18 | PC.NURSE ---
On 03/08/21, the student, [Julisa Hardwick ], provided care and completed [employer] documentation on this patient. I have reviewed the student's documentation and agree with the findings.
[2021-03-08 11:39] LABS: Glucose Point of Care 153 mg/dl (65-105)
--- NOTE | 2021-03-08 14:00 | PM.IMPN ---
Progress Note: A&P Assessment and Plan (1) CHF (congestive heart failure): Code(s): I50.9 - Heart failure, unspecified Status: Chronic Assessment and Plan: continue with IV Lasix and Coreg. Echo has been ordered. CTA was negative for PE but shows moderate size pleural effusions and dependent atelectasis. The patient is currently on oxygen at 3 L per nasal cannula. She is short of breath with exertion. The patient does not typically wear oxygen at home. She states she normally takes 120 mg of Lasix along with potassium supplement Currently on 40 twice a day of IV Lasix Output has not been charted. She is incontinent to urine Chest x-ray repeated today with improved congestion Echo done today which is pending report She sees Dr. Luke for cardiology and will consult him 03/08/21 14:00 Interval history patient is a 85-year-old female acute on chronic diastolic congestive heart failure presented with shortness of breath was volume overload seen by cardiology and being diuresed her symptoms are improveing, and not a short of breath, patient with history of atrial fibrillation was reluctant to start anticoagulation due to history of GI bleed and then developed stroke currently on heparin drip will switch over to Eliquis or Xarelto discussed with cardiology patient will benefit watchman procedure, rate is controlled with Coreg, patient remains clinically stable working with physical therapy and will continue to monitor further recommendation to follow. (2) Atrial fibrillation: Code(s): I48.91 - Unspecified atrial fibrillation Status: Chronic Assessment and Plan: EKG with AFib rate controlled She is on Coreg. She does not appear to be on any anticoagulation. The patient does have a history of multiple falls. (3) CVA (cerebral vascular accident): Code(s): I63.9 - Cerebral infarction, unspecified Status: Chronic Assessment and Plan: No residual noted at this time. PT OT will be consulted (4) Hyperlipidemia: Code(s): E78.5 - Hyperlipidemia, unspecified Status: Chronic Assessment and Plan: the patient does not appear to be on any medication at this time. (5) Hypertension: Code(s): I10 - Essential (primary) hypertension Status: Chronic Assessment and Plan: Continue with Coreg (6) Gout: Code(s): M10.9 - Gout, unspecified Status: Chronic Assessment and Plan: continue with allopurinol (7) DM2 (diabetes mellitus, type 2): Code(s): E11.9 - Type 2 diabetes mellitus without complications Status: Chronic Assessment and Plan: Continue with metformin. Do sliding scale insulin. Monitor BMP daily. Accu-Cheks AC and HS. (8) Cirrhosis: Code(s): K74.60 - Unspecified cirrhosis of liver Status: Acute Assessment and Plan: Noted in CT scan chest. Likely cardiac in origin due to underlying history of congestive heart failure or HANSEN due to history of diabetes and hypertension (9) Hypomagnesemia: Code(s): E83.42 - Hypomagnesemia Status: Acute Assessment and Plan: Replace (10) Acute DVT (deep venous thrombosis): Code(s): I82.409 - Acute embolism and thrombosis of unspecified deep veins of unspecified lower extremity Status: Acute Assessment and Plan: 1. Thrombosis of the right popliteal vein. 2. Superficial venous thrombosis of the left greater saphenous vein. Will start her on Lovenox therapeutic dose may switch to Xarelto or Eliquis at the time of discharge. Subjective Date/time seen: 03/08/21 14:00 Interval history patient is a 85-year-old female acute on chronic diastolic congestive heart failure presented with shortness of breath was volume overload seen by cardiology and being diuresed her symptoms are improveing, and not a short of breath, patient with history of atrial fibrillation was reluctant to start anticoagulation due to history o
[2021-03-08 16:14] LABS: Glucose Point of Care 110 mg/dl (65-105)
[2021-03-08 21:20] LABS: Glucose Point of Care 135 mg/dl (65-105)
[2021-03-09] VITALS (13 sets, daily range): BP systolic 96–107; BP diastolic 61–64; PULSE 71–91; RESP 18–20; TEMP 36–36.4; O2SAT 94–99
[2021-03-09 07:55] LABS: Glucose Point of Care 142 mg/dl (65-105)
[2021-03-09] MEDS: MAGNESIUM OXIDE 400 MG TABLET PO (08:47)
[2021-03-09] MEDS: PANTOPRAZOLE 40 MG TABLET PO (08:47)
[2021-03-09] MEDS: POTASSIUM CHLORIDE 10 MEQ TABLET.ER 60 MEQ PO (08:47)
[2021-03-09] MEDS: metFORMIN HCL XR 500 MG TAB.SR.24H PO (08:47)
[2021-03-09] MEDS: allopurinoL 100 MG TABLET PO (08:47)
[2021-03-09] MEDS: carvediloL 3.125 MG TABLET PO ×2 (08:48→17:15)
[2021-03-09] MEDS: metOLazone 2.5 MG TABLET PO (08:48)
[2021-03-09] MEDS: LIDOCAINE 5% PATCH 1 PATCH TRANSDERM ×2 (08:55→21:45)
[2021-03-09] MEDS: ENOXAPARIN 80 MG/0.8 ML SYRINGE SUB-Q ×2 (08:55→21:45)
[2021-03-09] MEDS: BUMETANIDE INJ 2.5 MG/10 ML VIAL 2 MG IV PUSH (08:55)
[2021-03-09 10:18] LABS: Hematocrit 39.1 % (37.0-47.0); Hemoglobin 13.3 g/dL (12.0-15.0); Mean Corpuscular Hemoglobin 31.1 pg (26-34); Mean Corpuscular Volume 91.4 fl (80-100); Mean Platelet Volume 11.2 fl (7.4-10.4); Platelet Count Result 178 k/mm3 (150-375); Red Blood Count 4.28 M/mm3 (4.2-5.4); Red Cell Distribution Width 14.4 % (11.5-14.5); White Blood Count 8.2 K/mm3 (4.5-10.0)
[2021-03-09 10:51] LABS: Anion Gap 11 mmol/L (8-16); Blood Urea Nitrogen 21 mg/dL (7-17); Calcium 9.1 mg/dL (8.4-10.2); Carbon Dioxide 32 mmol/L (22-30); Chloride 85 mmol/L (98-107); Estimated CRCL calculation 31 ml/min; Estimated Glomerular Filt Rate 47; Glucose 206 mg/dL (65-110); Magnesium 1.8 mg/dL (1.6-2.3); Potassium 3.8 mmol/L (3.4-5.0); Sodium 128 mmol/L (137-145)
[2021-03-09 11:56] LABS: Glucose Point of Care 146 mg/dl (65-105)
--- NOTE | 2021-03-09 12:36 | PM.PNCARD ---
Progress Note: A&P Assessment and Plan (1) Acute on chronic diastolic (congestive) heart failure: Code(s): I50.33 - Acute on chronic diastolic (congestive) heart failure Status: Acute Assessment and Plan: Volume status is improving. Continue diuresis, currently on bumetanide and low-dose metolazone. Monitor I's and O's, and electrolytes/renal function. Patient has been on maintenance diuresis as an outpatient due to propensity for significant volume overload with her underlying preserved ejection fraction. Will transition to oral Bumex 2 mg p.o. b.i.d. and down titrate as need (2) Atrial fibrillation: Code(s): I48.91 - Unspecified atrial fibrillation Status: Chronic Assessment and Plan: Rate controlled with carvedilol. Previously was not on anticoagulation due to history of GI bleed and followed by persistent reluctance for anticoagulation. Option of left atrial appendage occlusion was discussed with the patient previously. At that time, she was in the pre contemplative stage. Currently, patient has been initiated on low-molecular weight heparin for anticoagulation, which can be switched to one of the direct oral anticoagulants (apixaban or rivaroxaban) during hospitalization prior to discharge. If patient is unable to tolerate chronic anticoagulation in future, then will strongly recommend left atrial appendage occluder device (Watchman or Amulet occluder). (3) CVA (cerebral vascular accident): Code(s): I63.9 - Cerebral infarction, unspecified Status: Chronic Assessment and Plan: Continue PT OT (4) Acute DVT (deep venous thrombosis): Code(s): I82.409 - Acute embolism and thrombosis of unspecified deep veins of unspecified lower extremity Status: Acute Assessment and Plan: Currently on anticoagulation with low-molecular weight heparin Subjective Date/time seen: 03/09/21 12:36 Interval history: HPI:This is a 85-year-old female patient who lives home alone prior to having a stroke and a left ankle fracture. The patient is currently at [facility] for rehab. She has a history of having CHF and CVA. She was brought into the emergency room for evaluation of shortness of breath. The patient stated that she has shortness breath with exertion that started today. She does not typically wear oxygen at the group home. Patient had her stroke approximately 1 month ago and had her left ankle surgery At [facility]. The patient's oxygen levels on be 86% on room air at [facility]. So she was placed on oxygen and given a nebulizer treatment. She was transferred to [facility] for evaluation. The patient has multiple rib fractures on the right. She has a mild nonproductive cough. She just had her booster vaccine of the Pfizer COVID-19 yesterday. Prior to that she has been fully vaccinated. BNP was 3660. Chest x-ray was read as cardiomegaly with mild pulmonary edema. Small pleural effusions. Chest CTA was read as no pulmonary emboli identified. Small to moderate size pleural effusions with dependent atelectasis. Cirrhosis. The patient was given IV Lasix in the emergency room. The patient is being admitted to observation status on the date of service of 03/05/2021 Date of service 03/09/2021: She feels okay. Less short of breath. Swelling is difficult to ascertain but she thinks it is improving. No chest pain Review of Systems Constitutional: Constitutional: Reports weakness Eyes: Eyes: Reports no additional eye complaints ENT: Reports system reviewed and no additional complaints, except as documented Cardiovascular: Cardiovascular: Reports as per HPI and Reports dyspnea on exertion Respiratory: Respiratory: Reports dyspnea on exertion Gastrointestinal: Gastrointestinal: Reports no additional gastrointestinal complaints Musculoskeletal: Musculoskeletal: Reports myalgias Integumentary/Breasts: Skin/Breast: Reports system r
--- NOTE | 2021-03-09 12:59 | PM.IMPN ---
Progress Note: A&P Assessment and Plan (1) CHF (congestive heart failure): Code(s): I50.9 - Heart failure, unspecified Status: Chronic Assessment and Plan: continue with IV Lasix and Coreg. Echo has been ordered. CTA was negative for PE but shows moderate size pleural effusions and dependent atelectasis. The patient is currently on oxygen at 3 L per nasal cannula. She is short of breath with exertion. The patient does not typically wear oxygen at home. She states she normally takes 120 mg of Lasix along with potassium supplement Currently on 40 twice a day of IV Lasix Output has not been charted. She is incontinent to urine Chest x-ray repeated today with improved congestion Echo done today which is pending report She sees Dr. Luke for cardiology and will consult him 03/08/21 Interval history patient is a 85-year-old female acute on chronic diastolic congestive heart failure presented with shortness of breath was volume overload seen by cardiology and being diuresed her symptoms are improveing, and not a short of breath, patient with history of atrial fibrillation was reluctant to start anticoagulation due to history of GI bleed and then developed stroke currently on heparin drip will switch over to Eliquis or Xarelto discussed with cardiology patient will benefit watchman procedure, rate is controlled with Coreg, patient remains clinically stable working with physical therapy and will continue to monitor further recommendation to follow. 03/09/21Interval history Today patient is sitting in the chair states feeling better seen by cardiology patient being diuresed IV bumetanide and low dose of metolazone being monitor as her symptoms improve will switch over to oral oral bumetanide, patient clinical symptoms are improving patient continue to work with physical therapy and further recommendation to follow. patient with atrial fibrillation rate is controlled on coreg and anticoagulated Lovenox will need to be switch over to Eliquis or Xarelto before discharge. (2) Atrial fibrillation: Code(s): I48.91 - Unspecified atrial fibrillation Status: Chronic Assessment and Plan: EKG with AFib rate controlled She is on Coreg. She does not appear to be on any anticoagulation. The patient does have a history of multiple falls. (3) CVA (cerebral vascular accident): Code(s): I63.9 - Cerebral infarction, unspecified Status: Chronic Assessment and Plan: No residual noted at this time. PT OT will be consulted (4) Hyperlipidemia: Code(s): E78.5 - Hyperlipidemia, unspecified Status: Chronic Assessment and Plan: the patient does not appear to be on any medication at this time. (5) Hypertension: Code(s): I10 - Essential (primary) hypertension Status: Chronic Assessment and Plan: Continue with Coreg (6) Gout: Code(s): M10.9 - Gout, unspecified Status: Chronic Assessment and Plan: continue with allopurinol (7) DM2 (diabetes mellitus, type 2): Code(s): E11.9 - Type 2 diabetes mellitus without complications Status: Chronic Assessment and Plan: Continue with metformin. Do sliding scale insulin. Monitor BMP daily. Accu-Cheks AC and HS. (8) Cirrhosis: Code(s): K74.60 - Unspecified cirrhosis of liver Status: Acute Assessment and Plan: Noted in CT scan chest. Likely cardiac in origin due to underlying history of congestive heart failure or HANSEN due to history of diabetes and hypertension (9) Hypomagnesemia: Code(s): E83.42 - Hypomagnesemia Status: Acute Assessment and Plan: Replace (10) Acute DVT (deep venous thrombosis): Code(s): I82.409 - Acute embolism and thrombosis of unspecified deep veins of unspecified lower extremity Status: Acute Assessment and Plan: 1. Thrombosis of the right popliteal vein. 2. Superficial venous thrombosis of the le
[2021-03-09 16:38] LABS: Glucose Point of Care 139 mg/dl (65-105)
[2021-03-09] MEDS: BUMETANIDE 1 MG TABLET 2 MG PO (17:15)
[2021-03-09 22:19] LABS: Glucose Point of Care 122 mg/dl (65-105)
[2021-03-10] VITALS (14 sets, daily range): BP systolic 101–103; BP diastolic 51–60; PULSE 70–87; RESP 16–18; TEMP 36.3–37.2; O2SAT 95–99
[2021-03-10 05:28] LABS: Anion Gap 6 mmol/L (8-16); Blood Urea Nitrogen 26 mg/dL (7-17); Calcium 9.1 mg/dL (8.4-10.2); Carbon Dioxide 36 mmol/L (22-30); Chloride 86 mmol/L (98-107); Estimated CRCL calculation 31 ml/min; Estimated Glomerular Filt Rate 47; Glucose 123 mg/dL (65-110); Potassium 3.3 mmol/L (3.4-5.0); Sodium 128 mmol/L (137-145)
[2021-03-10 07:53] LABS: Glucose Point of Care 120 mg/dl (65-105)
[2021-03-10] MEDS: POTASSIUM CHLORIDE 10 MEQ TABLET.ER 60 MEQ PO (08:25)
[2021-03-10] MEDS: PANTOPRAZOLE 40 MG TABLET PO (08:26)
[2021-03-10] MEDS: BUMETANIDE 1 MG TABLET 2 MG PO (08:26)
[2021-03-10] MEDS: metOLazone 2.5 MG TABLET PO (08:26)
[2021-03-10] MEDS: allopurinoL 100 MG TABLET PO (08:26)
[2021-03-10] MEDS: MAGNESIUM OXIDE 400 MG TABLET PO (08:26)
[2021-03-10] MEDS: carvediloL 3.125 MG TABLET PO ×2 (08:27→16:44)
[2021-03-10] MEDS: ENOXAPARIN 80 MG/0.8 ML SYRINGE SUB-Q ×2 (08:27→23:03)
[2021-03-10] MEDS: POTASSIUM CHLORIDE 20 MEQ PACKET (FOR LIQUID) 40 MEQ PO (08:28)
[2021-03-10] MEDS: LIDOCAINE 5% PATCH 1 PATCH TRANSDERM ×2 (08:28→23:02)
[2021-03-10] MEDS: metFORMIN HCL XR 500 MG TAB.SR.24H PO (08:28)
[2021-03-10 11:52] LABS: Glucose Point of Care 161 mg/dl (65-105)
--- NOTE | 2021-03-10 14:13 | PM.PNCARD ---
Progress Note: A&P Assessment and Plan (1) Acute on chronic diastolic (congestive) heart failure: Code(s): I50.33 - Acute on chronic diastolic (congestive) heart failure Status: Acute Assessment and Plan: Volume status is improving. Continue diuresis, currently on bumetanide and low-dose metolazone. Monitor I's and O's, and electrolytes/renal function. Patient has been on maintenance diuresis as an outpatient due to propensity for significant volume overload with her underlying preserved ejection fraction. Decrease Bumex to 1 mg p.o. b.i.d.. KCL 40 mg p.o. x1. (2) Atrial fibrillation: Code(s): I48.91 - Unspecified atrial fibrillation Status: Chronic Assessment and Plan: Rate controlled with carvedilol. Previously was not on anticoagulation due to history of GI bleed and followed by persistent reluctance for anticoagulation. Option of left atrial appendage occlusion was discussed with the patient previously. At that time, she was in the pre contemplative stage. Currently, patient has been initiated on low-molecular weight heparin for anticoagulation, which can be switched to one of the direct oral anticoagulants (apixaban or rivaroxaban) during hospitalization prior to discharge. If patient is unable to tolerate chronic anticoagulation in future, then will strongly recommend left atrial appendage occluder device (Watchman or Amulet occluder). (3) CVA (cerebral vascular accident): Code(s): I63.9 - Cerebral infarction, unspecified Status: Chronic Assessment and Plan: Continue PT OT (4) Acute DVT (deep venous thrombosis): Code(s): I82.409 - Acute embolism and thrombosis of unspecified deep veins of unspecified lower extremity Status: Acute Assessment and Plan: Currently on anticoagulation with low-molecular weight heparin Subjective Date/time seen: 03/10/21 14:13 Interval history: HPI:This is a 85-year-old female patient who lives home alone prior to having a stroke and a left ankle fracture. The patient is currently at [facility] for rehab. She has a history of having CHF and CVA. She was brought into the emergency room for evaluation of shortness of breath. The patient stated that she has shortness breath with exertion that started today. She does not typically wear oxygen at the long term. Patient had her stroke approximately 1 month ago and had her left ankle surgery At [facility]. The patient's oxygen levels on be 86% on room air at [facility]. So she was placed on oxygen and given a nebulizer treatment. She was transferred to [facility] for evaluation. The patient has multiple rib fractures on the right. She has a mild nonproductive cough. She just had her booster vaccine of the Pfizer COVID-19 yesterday. Prior to that she has been fully vaccinated. BNP was 3660. Chest x-ray was read as cardiomegaly with mild pulmonary edema. Small pleural effusions. Chest CTA was read as no pulmonary emboli identified. Small to moderate size pleural effusions with dependent atelectasis. Cirrhosis. The patient was given IV Lasix in the emergency room. The patient is being admitted to observation status on the date of service of 03/05/2021 Date of service 03/10/2021: She feels okay. Short of breath with activity. Improving swelling. No chest pain Review of Systems Constitutional: Constitutional: Reports weakness Eyes: Eyes: Reports no additional eye complaints ENT: Reports system reviewed and no additional complaints, except as documented Cardiovascular: Cardiovascular: Reports as per HPI and Reports dyspnea on exertion Respiratory: Respiratory: Reports dyspnea on exertion Gastrointestinal: Gastrointestinal: Reports no additional gastrointestinal complaints Musculoskeletal: Musculoskeletal: Reports myalgias Integumentary/Breasts: Skin/Breast: Reports system reviewed and no additional complaints, except as docu
--- NOTE | 2021-03-10 14:20 | PM.IMPN ---
Progress Note: A&P Assessment and Plan (1) CHF (congestive heart failure): Code(s): I50.9 - Heart failure, unspecified Status: Chronic Assessment and Plan: continue with IV Lasix and Coreg. Echo has been ordered. CTA was negative for PE but shows moderate size pleural effusions and dependent atelectasis. The patient is currently on oxygen at 3 L per nasal cannula. She is short of breath with exertion. The patient does not typically wear oxygen at home. She states she normally takes 120 mg of Lasix along with potassium supplement Currently on 40 twice a day of IV Lasix Output has not been charted. She is incontinent to urine Chest x-ray repeated today with improved congestion Echo done today which is pending report She sees Dr. Luke for cardiology and will consult him 03/10/21 14:20 Interval history patient is a 85-year-old female acute on chronic diastolic congestive heart failure presented with shortness of breath was volume overload seen by cardiology and being diuresed her symptoms are improveing, and not a short of breath, patient with history of atrial fibrillation was reluctant to start anticoagulation due to history of GI bleed and then developed stroke currently on heparin drip will switch over to Eliquis or Xarelto discussed with cardiology patient will benefit watchman procedure, rate is controlled with Coreg, patient remains clinically stable working with physical therapy and will continue to monitor further recommendation to follow. 03/09/21Interval history Today patient is sitting in the chair states feeling better seen by cardiology patient being diuresed IV bumetanide and low dose of metolazone being monitor as her symptoms improve will switch over to oral oral bumetanide, patient clinical symptoms are improving patient continue to work with physical therapy and further recommendation to follow. patient with atrial fibrillation rate is controlled on coreg and anticoagulated Lovenox will need to be switch over to Eliquis or Xarelto before discharge. 03/10/21Interval history Today patient is sitting in the chair, caregiver from home was present, states feeling better seen by cardiology patient had being diuresed with PO bumetanide 2mg PO BID and today it was reduced to 1mg BID and continued low dose of metolazone 2.5mg PO daily, patient with atrial fibrillation heart rate is controlled with Coreg anticoagulated Lovenox patient will need to be switch over to Eliquis or Xarelto before discharge, will continue present management will have PT OT work with the patient and further recommendation to follow. (2) Atrial fibrillation: Code(s): I48.91 - Unspecified atrial fibrillation Status: Chronic Assessment and Plan: EKG with AFib rate controlled She is on Coreg. She does not appear to be on any anticoagulation. The patient does have a history of multiple falls. (3) CVA (cerebral vascular accident): Code(s): I63.9 - Cerebral infarction, unspecified Status: Chronic Assessment and Plan: No residual noted at this time. PT OT will be consulted (4) Hyperlipidemia: Code(s): E78.5 - Hyperlipidemia, unspecified Status: Chronic Assessment and Plan: the patient does not appear to be on any medication at this time. (5) Hypertension: Code(s): I10 - Essential (primary) hypertension Status: Chronic Assessment and Plan: Continue with Coreg (6) Gout: Code(s): M10.9 - Gout, unspecified Status: Chronic Assessment and Plan: continue with allopurinol (7) DM2 (diabetes mellitus, type 2): Code(s): E11.9 - Type 2 diabetes mellitus without complications Status: Chronic Assessment and Plan: Continue with metformin. Do sliding scale insulin. Monitor BMP daily. Accu-Cheks AC and HS. (8) Cirrhosis: Code(s): K74.60 - Unspecified cirrhosis of liver Status: Acute Assessment and Plan:
[2021-03-10] MEDS: BUMETANIDE 1 MG TABLET PO (16:43)
[2021-03-10] MEDS: ACETAMINOPHEN 325 MG TABLET 650 MG PO (16:44)
[2021-03-10 16:57] LABS: Glucose Point of Care 156 mg/dl (65-105)
[2021-03-10 23:38] LABS: Glucose Point of Care 99 mg/dl (65-105)
[2021-03-11] VITALS (14 sets, daily range): BP systolic 93–103; BP diastolic 47–66; PULSE 61–84; RESP 18–20; TEMP 36.2–36.5; O2SAT 93–100
[2021-03-11 05:42] LABS: Anion Gap 9 mmol/L (8-16); Blood Urea Nitrogen 28 mg/dL (7-17); Calcium 9.1 mg/dL (8.4-10.2); Carbon Dioxide 33 mmol/L (22-30); Chloride 87 mmol/L (98-107); Estimated CRCL calculation 31 ml/min; Estimated Glomerular Filt Rate 47; Glucose 114 mg/dL (65-110); Potassium 3.1 mmol/L (3.4-5.0); Sodium 129 mmol/L (137-145)
[2021-03-11 08:29] LABS: Glucose Point of Care 136 mg/dl (65-105)
[2021-03-11] MEDS: BUMETANIDE 1 MG TABLET PO ×2 (08:30→18:07)
[2021-03-11] MEDS: metFORMIN HCL XR 500 MG TAB.SR.24H PO (08:30)
[2021-03-11] MEDS: ENOXAPARIN 80 MG/0.8 ML SYRINGE SUB-Q (08:30)
[2021-03-11] MEDS: carvediloL 3.125 MG TABLET PO ×2 (08:31→18:07)
[2021-03-11] MEDS: PANTOPRAZOLE 40 MG TABLET PO (08:31)
[2021-03-11] MEDS: allopurinoL 100 MG TABLET PO (08:32)
[2021-03-11] MEDS: POTASSIUM CHLORIDE 20 MEQ TABLET 40 MEQ PO ×2 (08:32→09:00)
[2021-03-11] MEDS: MAGNESIUM OXIDE 400 MG TABLET PO (08:32)
[2021-03-11] MEDS: metOLazone 2.5 MG TABLET PO (08:33)
[2021-03-11] MEDS: POTASSIUM CHLORIDE 10 MEQ TABLET.ER 60 MEQ PO (08:33)
[2021-03-11] MEDS: LIDOCAINE 5% PATCH 1 PATCH TRANSDERM ×2 (08:33→21:55)
[2021-03-11 09:36] LABS: Magnesium 1.9 mg/dL (1.6-2.3)
--- NOTE | 2021-03-11 09:47 | PM.PNCARD ---
Progress Note: A&P Assessment and Plan (1) Acute on chronic diastolic (congestive) heart failure: Code(s): I50.33 - Acute on chronic diastolic (congestive) heart failure Status: Acute Assessment and Plan: Volume status is improving. Continue diuresis, currently on bumetanide and low-dose metolazone. Monitor I's and O's, and electrolytes/renal function. Patient has been on maintenance diuresis as an outpatient due to propensity for significant volume overload with her underlying preserved ejection fraction. Continue Bumex. Supplementing potassium. Will check a PA and lateral chest x-ray she appears dyspneic today. Wean oxygen if able (2) Atrial fibrillation: Code(s): I48.91 - Unspecified atrial fibrillation Status: Chronic Assessment and Plan: Rate controlled with carvedilol. Previously was not on anticoagulation due to history of GI bleed and followed by persistent reluctance for anticoagulation. Option of left atrial appendage occlusion was discussed with the patient previously. At that time, she was in the pre contemplative stage. Currently, patient has been initiated on low-molecular weight heparin for anticoagulation, which can be switched to one of the direct oral anticoagulants (apixaban or rivaroxaban) during hospitalization prior to discharge. If patient is unable to tolerate chronic anticoagulation in future, then will strongly recommend left atrial appendage occluder device (Watchman or Amulet occluder). (3) CVA (cerebral vascular accident): Code(s): I63.9 - Cerebral infarction, unspecified Status: Chronic Assessment and Plan: Continue PT OT (4) Acute DVT (deep venous thrombosis): Code(s): I82.409 - Acute embolism and thrombosis of unspecified deep veins of unspecified lower extremity Status: Acute Assessment and Plan: Currently on anticoagulation with low-molecular weight heparin Subjective Date/time seen: 03/11/21 09:47 Interval history: HPI:This is a 85-year-old female patient who lives home alone prior to having a stroke and a left ankle fracture. The patient is currently at [facility] for rehab. She has a history of having CHF and CVA. She was brought into the emergency room for evaluation of shortness of breath. The patient stated that she has shortness breath with exertion that started today. She does not typically wear oxygen at the alf. Patient had her stroke approximately 1 month ago and had her left ankle surgery At [facility]. The patient's oxygen levels on be 86% on room air at [facility]. So she was placed on oxygen and given a nebulizer treatment. She was transferred to [facility] for evaluation. The patient has multiple rib fractures on the right. She has a mild nonproductive cough. She just had her booster vaccine of the Pfizer COVID-19 yesterday. Prior to that she has been fully vaccinated. BNP was 3660. Chest x-ray was read as cardiomegaly with mild pulmonary edema. Small pleural effusions. Chest CTA was read as no pulmonary emboli identified. Small to moderate size pleural effusions with dependent atelectasis. Cirrhosis. The patient was given IV Lasix in the emergency room. The patient is being admitted to observation status on the date of service of 03/05/2021 Date of service 03/10/2021: She feels okay. Short of breath with activity. Improving swelling. No chest pain Date of service 03/11/2021: She visibly appear short of breath today. She denies any chest pain. No swelling Review of Systems Constitutional: Constitutional: Reports weakness Eyes: Eyes: Reports no additional eye complaints ENT: Reports system reviewed and no additional complaints, except as documented Cardiovascular: Cardiovascular: Reports as per HPI and Reports dyspnea on exertion Respiratory: Respiratory: Reports dyspnea on exertion Gastrointestinal: Gastrointestinal: Reports no additional ga
--- NOTE | 2021-03-11 11:55 | PM.IMPN ---
Progress Note: A&P Assessment and Plan (1) CHF (congestive heart failure): Code(s): I50.9 - Heart failure, unspecified Status: Chronic Assessment and Plan: continue with IV Lasix and Coreg. Echo has been ordered. CTA was negative for PE but shows moderate size pleural effusions and dependent atelectasis. The patient is currently on oxygen at 3 L per nasal cannula. She is short of breath with exertion. The patient does not typically wear oxygen at home. She states she normally takes 120 mg of Lasix along with potassium supplement Currently on 40 twice a day of IV Lasix Output has not been charted. She is incontinent to urine Chest x-ray repeated today with improved congestion Echo done today which is pending report She sees Dr. Luke for cardiology and will consult him Interval history patient is a 85-year-old female acute on chronic diastolic congestive heart failure presented with shortness of breath was volume overload seen by cardiology and being diuresed her symptoms are improveing, and not a short of breath, patient with history of atrial fibrillation was reluctant to start anticoagulation due to history of GI bleed and then developed stroke currently on heparin drip will switch over to Eliquis or Xarelto discussed with cardiology patient will benefit watchman procedure, rate is controlled with Coreg, patient remains clinically stable working with physical therapy and will continue to monitor further recommendation to follow. 03/09/21Interval history Today patient is sitting in the chair states feeling better seen by cardiology patient being diuresed IV bumetanide and low dose of metolazone being monitor as her symptoms improve will switch over to oral oral bumetanide, patient clinical symptoms are improving patient continue to work with physical therapy and further recommendation to follow. patient with atrial fibrillation rate is controlled on coreg and anticoagulated Lovenox will need to be switch over to Eliquis or Xarelto before discharge. 03/10/21Interval history Today patient is sitting in the chair, caregiver from home was present, states feeling better seen by cardiology patient had being diuresed with PO bumetanide 2mg PO BID and today it was reduced to 1mg BID and continued low dose of metolazone 2.5mg PO daily, patient with atrial fibrillation heart rate is controlled with Coreg anticoagulated Lovenox patient will need to be switch over to Eliquis or Xarelto before discharge, will continue present management will have PT OT work with the patient and further recommendation to follow. 03/11/21Interval history patient sitting in the chair working with occupational therapy, patient was seen by blankbook forwarder are clear and felt patient was short of breath no ordered chest x-ray, currently patient states feeling better denies any cough or shortness of breath fever or chills, currently patient is on bumetanide 1 mg b.i.d. and metolazone 2.5 mg q.d. remains clinically stable, patient with atrial fibrillation rate is controlled with Coreg,will go and switch over patient to Eliquis 2.5 mg b.i.d. for anticoagulation, follow-up on chest x-ray and further recommendation to follow (2) Atrial fibrillation: Code(s): I48.91 - Unspecified atrial fibrillation Status: Chronic Assessment and Plan: EKG with AFib rate controlled She is on Coreg. She does not appear to be on any anticoagulation. The patient does have a history of multiple falls. (3) CVA (cerebral vascular accident): Code(s): I63.9 - Cerebral infarction, unspecified Status: Chronic Assessment and Plan: No residual noted at this time. PT OT will be consulted (4) Hyperlipidemia: Code(s): E78.5 - Hyperlipidemia, unspecified Status: Chronic Assessment and Plan: the patient does not appear to be on any medication at this time. (5) Hypertension: Code(s): I10 - Essential (primary) hypertension
[2021-03-11 12:15] LABS: Glucose Point of Care 233 mg/dl (65-105)
[2021-03-11] MEDS: INSULIN ASPART (*BKC) 100 UNITS/ML SUB-Q (12:16)
--- NOTE | 2021-03-11 12:16 | PCNFU ---
Nutrition Follow-Up Complete: Suboptimal oral intake related to food preferences as evidenced by intakes 0-30% of most meals since admission. Goal: Patient to consume 50% of meals or greater. Patient is progressing towards goal. We will continue current goal. Pt current nutrition is Heart Healthy. Last recorded weight is 68.3 kg, down from 77.9 kg on admit. IV lasix. Bowel Motility:+BM reported 03/04 per patient. Labs Reviewed:Na 129, GFR 47, Cr 1.10,Glu 114,BUN 28, K 3.1 Meds Noted:KCL tablet, Protonix, Zaroxolyn, Glucophage, Coreg, Mag-Ox,Lasix. Additional Notes: Nutrition follow up. Patent seen today, states to eating well. 50-100% of meals documented. Patient is not interested in diet supplements. SKin: WNL. She is working with PT/OT. Agree with diet orders. Monitoring: Follow up in 5 days.
--- NOTE | 2021-03-11 13:57 | PC.NURSE ---
This patient, Radha Pizano, was transferred to [XRAY
[2021-03-11 16:19] LABS: Glucose Point of Care 118 mg/dl (65-105)
[2021-03-11] MEDS: APIXABAN 2.5 MG TABLET PO (21:50)
[2021-03-11 22:18] LABS: Glucose Point of Care 131 mg/dl (65-105)
[2021-03-12] VITALS: PULSE 64
[2021-03-12 04:00] VITALS: PULSE 66
[2021-03-12 05:57] LABS: Anion Gap 8 mmol/L (8-16); Blood Urea Nitrogen 30 mg/dL (7-17); Calcium 9.3 mg/dL (8.4-10.2); Carbon Dioxide 34 mmol/L (22-30); Chloride 87 mmol/L (98-107); Estimated CRCL calculation 31 ml/min; Estimated Glomerular Filt Rate 47; Glucose 110 mg/dL (65-110); Potassium 3.4 mmol/L (3.4-5.0); Sodium 129 mmol/L (137-145)
[2021-03-12 06:00] VITALS: BP 105/55; PULSE 72; RESP 16; TEMP 36.3; O2SAT 98
[2021-03-12 08:00] VITALS: PULSE 80
[2021-03-12 08:01] LABS: Glucose Point of Care 131 mg/dl (65-105)
[2021-03-12] MEDS: LIDOCAINE 5% PATCH 1 PATCH TRANSDERM (08:13)
[2021-03-12 08:14] VITALS: PULSE 89
[2021-03-12] MEDS: APIXABAN 2.5 MG TABLET PO (08:14)
[2021-03-12] MEDS: PANTOPRAZOLE 40 MG TABLET PO (08:14)
[2021-03-12] MEDS: carvediloL 3.125 MG TABLET PO (08:14)
[2021-03-12] MEDS: allopurinoL 100 MG TABLET PO (08:14)
[2021-03-12] MEDS: MAGNESIUM OXIDE 400 MG TABLET PO (08:14)
[2021-03-12] MEDS: metFORMIN HCL XR 500 MG TAB.SR.24H PO (08:14)
[2021-03-12] MEDS: BUMETANIDE 1 MG TABLET PO (08:14)
[2021-03-12] MEDS: POTASSIUM CHLORIDE 10 MEQ TABLET.ER 60 MEQ PO (08:15)
[2021-03-12] MEDS: metOLazone 2.5 MG TABLET PO (08:16)
[2021-03-12] MEDS: POTASSIUM CHLORIDE 20 MEQ TABLET 40 MEQ PO (09:44)
[2021-03-12 12:00] VITALS: PULSE 83
[2021-03-12 12:00] LABS: Glucose Point of Care 164 mg/dl (65-105)
--- NOTE | 2021-03-12 12:47 | PM.PNCARD ---
Progress Note: A&P Assessment and Plan (1) Acute on chronic diastolic (congestive) heart failure: Code(s): I50.33 - Acute on chronic diastolic (congestive) heart failure Status: Acute Assessment and Plan: Volume status is improving, pleural effusions better and pt feeling better. Home furosemide changed to bumetanide and low-dose metolazone this admission. Continue Bumex/metolzaone as OPT. Supplementing potassium. Discussed discharge meds w/ Dr. Guerra; will resume spironolactone since K+ is borderline low and check BMP/Mag as OPT. (2) Atrial fibrillation: Code(s): I48.91 - Unspecified atrial fibrillation Status: Chronic Assessment and Plan: Rate controlled with carvedilol. Previously was not on anticoagulation due to history of GI bleed and followed by persistent reluctance for anticoagulation. Agreed to Eliquis, started yesterday at 2.5 mg BID. (3) CVA (cerebral vascular accident): Code(s): I63.9 - Cerebral infarction, unspecified Status: Chronic Assessment and Plan: Continue PT OT (4) Acute DVT (deep venous thrombosis): Code(s): I82.409 - Acute embolism and thrombosis of unspecified deep veins of unspecified lower extremity Status: Acute Assessment and Plan: Lovenox changed to Eliquis. Additional Plan OK for discharge. BMP in 1 week. I will ask our office to set up appt w/ Dr. Luke or ACID REMOVER in 1-2 weeks. Subjective Date/time seen: 03/12/21 12:47 Interval history: HPI:This is a 85-year-old female patient who lives home alone prior to having a stroke and a left ankle fracture. The patient is currently at [facility] for rehab. She has a history of having CHF and CVA. She was brought into the emergency room for evaluation of shortness of breath. The patient stated that she has shortness breath with exertion that started today. She does not typically wear oxygen at the group home. Patient had her stroke approximately 1 month ago and had her left ankle surgery At [facility]. The patient's oxygen levels on be 86% on room air at [facility]. So she was placed on oxygen and given a nebulizer treatment. She was transferred to [facility] for evaluation. The patient has multiple rib fractures on the right. She has a mild nonproductive cough. She just had her booster vaccine of the Pfizer COVID-19 yesterday. Prior to that she has been fully vaccinated. BNP was 3660. Chest x-ray was read as cardiomegaly with mild pulmonary edema. Small pleural effusions. Chest CTA was read as no pulmonary emboli identified. Small to moderate size pleural effusions with dependent atelectasis. Cirrhosis. The patient was given IV Lasix in the emergency room. The patient is being admitted to observation status on the date of service of 03/05/2021 Date of service 03/10/2021: She feels okay. Short of breath with activity. Improving swelling. No chest pain Date of service 03/11/2021: She visibly appear short of breath today. She denies any chest pain. No swelling Date of service 03/12/2021: Feeling better, eager for discharge. Daughter at bedside. Sodium down to 129, BUN up to 30. On room air. Tele = a fib, rate controlled. Occ ventricular couplet Review of Systems Constitutional: Constitutional: Reports no additional constitutional complaints Eyes: Eyes: Reports no additional eye complaints ENT: Denies epistaxis Cardiovascular: Cardiovascular: Denies chest pain and Denies leg edema Respiratory: Respiratory: Reports dyspnea and Reports dyspnea on exertion Gastrointestinal: Gastrointestinal: Denies abdominal pain Genitourinary: Genitourinary: Denies hematuria Musculoskeletal: Musculoskeletal: Reports arthralgias Integumentary/Breasts: Skin/Breast: Denies rash Neurologic: Reports system reviewed and no additional complaints, except as documented Psychiatric: Psychiatric: Reports no additional psychiatric compla
--- NOTE | 2021-03-12 13:19 | PM.DS ---
DS: Admitting Diagnosis Discharge Date 03/12/2021 Admitting Diagnosis Shortness of breath DS: Discharge Diagnosis Discharge Diagnosis (1) CHF (congestive heart failure): Code(s): I50.9 - Heart failure, unspecified Status: Chronic Assessment and Plan: continue with IV Lasix and Coreg. Echo has been ordered. CTA was negative for PE but shows moderate size pleural effusions and dependent atelectasis. The patient is currently on oxygen at 3 L per nasal cannula. She is short of breath with exertion. The patient does not typically wear oxygen at home. She states she normally takes 120 mg of Lasix along with potassium supplement Currently on 40 twice a day of IV Lasix Output has not been charted. She is incontinent to urine Chest x-ray repeated today with improved congestion Echo done today which is pending report She sees Dr. Luke for cardiology and will consult him Interval history patient is a 85-year-old female acute on chronic diastolic congestive heart failure presented with shortness of breath was volume overload seen by cardiology and being diuresed her symptoms are improveing, and not a short of breath, patient with history of atrial fibrillation was reluctant to start anticoagulation due to history of GI bleed and then developed stroke currently on heparin drip will switch over to Eliquis or Xarelto discussed with cardiology patient will benefit watchman procedure, rate is controlled with Coreg, patient remains clinically stable working with physical therapy and will continue to monitor further recommendation to follow. 03/09/21Interval history Today patient is sitting in the chair states feeling better seen by cardiology patient being diuresed IV bumetanide and low dose of metolazone being monitor as her symptoms improve will switch over to oral oral bumetanide, patient clinical symptoms are improving patient continue to work with physical therapy and further recommendation to follow. patient with atrial fibrillation rate is controlled on coreg and anticoagulated Lovenox will need to be switch over to Eliquis or Xarelto before discharge. 03/10/21Interval history Today patient is sitting in the chair, caregiver from home was present, states feeling better seen by cardiology patient had being diuresed with PO bumetanide 2mg PO BID and today it was reduced to 1mg BID and continued low dose of metolazone 2.5mg PO daily, patient with atrial fibrillation heart rate is controlled with Coreg anticoagulated Lovenox patient will need to be switch over to Eliquis or Xarelto before discharge, will continue present management will have PT OT work with the patient and further recommendation to follow. 03/11/21Interval history patient sitting in the chair working with occupational therapy, patient was seen by blindmaker are clear and felt patient was short of breath no ordered chest x-ray, currently patient states feeling better denies any cough or shortness of breath fever or chills, currently patient is on bumetanide 1 mg b.i.d. and metolazone 2.5 mg q.d. remains clinically stable, patient with atrial fibrillation rate is controlled with Coreg,will go and switch over patient to Eliquis 2.5 mg b.i.d. for anticoagulation, follow-up on chest x-ray and further recommendation to follow (2) Atrial fibrillation: Code(s): I48.91 - Unspecified atrial fibrillation Status: Chronic Assessment and Plan: EKG with AFib rate controlled She is on Coreg. She does not appear to be on any anticoagulation. The patient does have a history of multiple falls. (3) CVA (cerebral vascular accident): Code(s): I63.9 - Cerebral infarction, unspecified Status: Chronic Assessment and Plan: No residual noted at this time. PT OT will be consulted (4) Hyperlipidemia: Code(s): E78.5 - Hyperlipidemia, unspecified Status: Chronic Assessment and Plan: the patient does not appear to be on any medi
--- NOTE | 2021-03-12 13:28 | P.DS_ITS ---
DS: Discharge Diagnosis Discharge Diagnosis (1) CHF (congestive heart failure): Code(s): I50.9 - Heart failure, unspecified Status: Chronic Assessment and Plan: continue with IV Lasix and Coreg. Echo has been ordered. CTA was negative for PE but shows moderate size pleural effusions and dependent atelectasis. The patient is currently on oxygen at 3 L per nasal cannula. She is short of breath with exertion. The patient does not typically wear oxygen at home. She states she normally takes 120 mg of Lasix along with potassium supplement Currently on 40 twice a day of IV Lasix Output has not been charted. She is incontinent to urine Chest x-ray repeated today with improved congestion Echo done today which is pending report She sees Dr. Luke for cardiology and will consult him Interval history patient is a 85-year-old female acute on chronic diastolic congestive heart failure presented with shortness of breath was volume overload seen by cardiology and being diuresed her symptoms are improveing, and not a short of breath, patient with history of atrial fibrillation was reluctant to start anticoagulation due to history of GI bleed and then developed stroke c urrently on heparin drip will switch over to Eliquis or Xarelto discussed with cardiology patient will benefit watchman procedure, rate is controlled with Coreg, patient remains clinically stable working with physical therapy and will continue to monitor further recommendation to follow. 03/09/21Interval history Today patient is sitting in the chair states feeling better seen by cardiology patient being diuresed IV bumetanide and low dose of metolazone being monitor as her symptoms improve will switch over to oral oral bumetanide, patient clinical symptoms are improving patient continue to work with physical therapy and further recommendation to follow. patient with atrial fibrillation rate is controlled on coreg and anticoagulated Lovenox will need to be switch over to Eliquis or Xarelto before discharge. 03/10/21Interval history Today patient is sitting in the chair, caregiver from home was present, states feeling better seen by cardiology patient had being diuresed with PO bumetanide 2mg PO BID and today it was reduced to 1mg BID and continued low dose of metolazone 2.5mg PO daily, patient with atrial fibrillation heart rate is controlled with Coreg anticoagulated Lovenox patient will need to be switch over to Eliquis or Xarelto before discharge, will continue present management will have PT OT work with the patient and further recommendation to follow. 03/11/21Interval history patient sitting in the chair working with occupational therapy, patient was seen by district manager primary care sales are clear and felt patient was short of breath no ordered chest x-ray, currently patient states feeling better denies any cough or shortness of breath fever or chills, currently patient is on bumetanide 1 mg b.i.d. and metolazone 2.5 mg q.d. remains clinically stable, patient with atrial fibrillation rate is controlled with Coreg,will go and switch over patient to Eliquis 2.5 mg b.i.d. for anticoagulation, follow-up on chest x-ray and further recommendation to follow (2) Atrial fibrillation: Code(s): I48.91 - Unspecified atrial fibrillation Status: Chronic Assessment and Plan: EKG with AFib rate controlled She is on Coreg. She does not appear to be on any anticoagulation. The patient does have a history of multiple falls. (3) CVA (cerebral vascular accident): Code(s): I63.9 - Cerebral infarction, unspecified Status: Chronic Assessment and Plan: No residual noted at this time. PT OT will be consulted (4) Hyperlipidemia:
== END 2021-03-12 14:58 | DRG 291 ==
LOC: ANHED 10:17 → ANH2MED 10:31
PROVIDERS: Internal Medicine; Nurse Practitioner; Admitting Provider Internal Medicine; Emergency Provider General Practice; PCP Family Medicine Adolescent Medicine; Visit Provider Family Medicine
DX: I11.0 Hypertensive heart disease with heart failure (principal); I50.23 Acute on chronic systolic (congestive) heart failure; J96.01 Acute respiratory failure with hypoxia; I82.431 Acute embolism and thrombosis of right popliteal vein; I82.812 Embolism and thrombosis of superficial veins of left lower extremity; I48.20 Chronic atrial fibrillation, unspecified; Z86.73 Personal history of transient ischemic attack (TIA), and cerebral infarction without residual deficits; R07.81 Pleurodynia; M10.9 Gout, unspecified; E78.5 Hyperlipidemia, unspecified; E11.9 Type 2 diabetes mellitus without complications; R29.6 Repeated falls; Z79.84 Long term (current) use of oral hypoglycemic drugs; K74.60 Unspecified cirrhosis of liver; E83.42 Hypomagnesemia; R32 Unspecified urinary incontinence; Z91.14 Patient's other noncompliance with medication regimen
CPT/HCPCS: 36415; 36600; 51701; 71045; 71046; 71275; 80048; 80053; 80076; 81001; 82375; 82728; 82805; 82948; 83036; 83050; 83605; 83615; 83690; 83735; 83880; 84443; 84484; 85025; 85027; 85055; 85610; 85730; 93005; 93306; 93970; 96365; 96372; 96374; 96375; 96376; 97110; 97116; 97163; 97166; 97530; 97535; 99285; A9270; G0378; J0131; J1650; J1815; J1940; J3475; Q9967

== ENCOUNTER 2021-07-15 11:02 | Outpatient (CLI) | payer MEDICARE, OTHER, SELFPAY ==
--- NOTE | ~2021-07-15 | US_ITS ---
US renal BI 07/15/2021 11:36 Procedure: Realtime transabdominal ultrasound of the kidneys and bladder. Indication: Abnormal renal function Comparison: No prior studies for comparison. Findings: Renal echotexture is normal bilaterally without hydronephrosis, contour deforming mass or r enal calculus. The right kidney measures 8 cm and left kidney measures 8.1 cm. Bladder within normal limits. Impression: 1: Unremarkable renal ultrasound. No stones, masses or hydronephrosis. Reviewed, dictated and finalized at location A. RANCE CLAIMS EXAMINER Impression: 1: Unremarkable renal ultrasound. No stones, masses or hydronephrosis.
== END 2021-07-15 11:03 | disposition home or self-care (01) ==
PROVIDERS: Visit Provider Internal Medicine Nephrology
DX: R94.4 Abnormal results of kidney function studies (principal)
CPT/HCPCS: 76775

== ENCOUNTER 2022-04-13 21:37 | Emergency (ER) | payer MEDICARE, SELFPAY ==
--- NOTE | ~2022-04-13 | CT_ITS ---
EXAMINATION: CT cervical spine wo con DATE: 04/13/2022 22:40 INDICATION: Status post fall. Neck pain. TECHNIQUE: Computed tomography (CT) of the cervical spine was performed without intravenous contrast. The dose-length product was 241 mGy-cm. COMPARISON: None FINDINGS: Vertebral heights are maintained. There is mild disc narrowing at multiple levels. There is levoscoliosis. Odontoid process is normal. There is mild multilevel uncinate and facet hypertrophy. Study limited by motion artifact. There is subsegmental atelectasis in the upper lungs. No evidence f or perched facet. Odontoid process within normal limits. No significant paraspinal soft tissue abnorm ality. IMPRESSION: 1. No acute abnormality of the cervical spine. Reviewed, dictated and finalized at location A. NE MECHANIC
--- NOTE | ~2022-04-13 | CT_ITS ---
EXAMINATION: CT thoracic lumbar wo con DATE: 04/13/2022 22:40 INDICATION: Back pain after fall TECHNIQUE: Computed tomography (CT) of the thoracic and lumbar spine was performed without intravenou s contrast. The dose-length product was 1485.72 mGy-cm. Automated exposure control and iterative bill nstruction technique were employed. COMPARISON: CT dated 03/05/2021 FINDINGS: There is severe kyphosis of the thoracic spine. There is chronic vertebral plana of T7. The re is a chronic burst fracture of T8. There is dextroscoliosis of the thoracic spine. There is a pantry worker yang superior endplate compression fracture of L1. There are gallstones. Bowel pattern is nonobstructi ve. There is atherosclerosis of the aorta. The kidneys are atrophic. There is moderate multilevel tho racic and lumbar spondylosis. IMPRESSION: 1. No acute abnormality of the thoracic or lumbar spine identified. 2: Severe chronic fractures of T7, T8 and L1. 3: Renal atrophy. 4: Gallstones. Reviewed, dictated and finalized at location A. [facility]
--- NOTE | ~2022-04-13 | CT_ITS ---
EXAMINATION: CT chest abdomen pelvis wo con DATE: 04/14/2022 02:37 INDICATION: Fall. Pain. TECHNIQUE: Computed tomography (CT) of the chest, abdomen, and pelvis was performed without intraveno us contrast. Automated exposure control and iterative reconstruction technique were employed. Exam do se: 1190.87 mGy-cm total exam DLP. COMPARISON: 03/05/2021 CTA chest 09/30/2017 CT abdomen pelvis FINDINGS: CHEST CT: Cardiomegaly. Coronary artery calcification. No pericardial or pleural effusions. No thoracic aortic aneurysm. No hilar or mediastinal mass lesion or lymphadenopathy. Multiple old bilateral rib fractures. No acute rib fracture is evident. Severe burst fracture of T7 and moderately severe burst fracture of T8 are stable since 03/05/2021. Chronic mild anterior wedging of T9, T10, T11 and T12 and chronic moderately prominent anterior wedge compression fracture deformity of L1 and. Diffuse osteopenia. ABDOMEN/PELVIS CT: There is surface nodularity of the liver consistent with history of cirrhosis. There are numerous sma ll stones in the dependent gallbladder. No gallbladder wall thickening or pericholecystic fluid or fa t stranding. No bile duct or pancreatic duct dilatation. No pancreatic mass lesion or calcification. Splenic size is within normal range. Degenerative glands are unremarkable. Bilateral renal atrophy, left greater than right. No renal mass lesion or urinary tract calculus or hydroureteronephrosis. There is extensive atherosclerotic calcification of the abdominal aorta but no aneurysm. No intraperi toneal or retroperitoneal or pelvic mass lesion or adenopathy or ascites is detected. The urinary bladder is unremarkable. Status post hysterectomy. There is a prominent of fecal material in the rectosigmoid area. Diverticulosis of the colon; no CT e vidence of diverticulitis. No bowel obstruction or intraperitoneal free air is detected. IMPRESSION: Multiple bilateral old rib fractures Old burst fracture deformities of T7 and particularly T8 Old compression fracture deformities of lower thoracic spine and particularly L1 Cardiomegaly Cholelithiasis Diverticulosis of the colon Reviewed, dictated and finalized at Location A. Reviewed, dictated and finalized at location B. LASER OPERATOR IMPRESSION: Multiple bilateral old rib fractures Old burst fracture deformities of T7 and particularly T8 Old compression fracture deformities of lower thoracic spine and particularly L 1 Cardiomegaly Cholelithiasis Diverticulosis of the colon
--- NOTE | ~2022-04-13 | CT_ITS ---
EXAMINATION: CT brain wo con DATE: 04/13/2022 22:39 INDICATION: Status post fall. TECHNIQUE: Computed tomography (CT) of the head was performed without intravenous contrast. The dose- length product was 1059.33 mGy-cm. Automated exposure control and iterative reconstruction technique were employed. COMPARISON: CT dated 02/05/2021 FINDINGS: There is a chronic right posterior parietal-occipital lobe infarction with encephalomalacia . Generalized atrophy. There is intracranial atherosclerosis. There are scattered mild periventricula r and subcortical white matter changes, most likely related to small vessel ischemic disease (microan giopathy). Basilar cisterns are patent. Paranasal sinuses and mastoids are pneumatized. Study limited by motion artifact. No ventriculomegaly or midline shift. No acute infarction, hemorrhage, mass or m ass effect. IMPRESSION: 1. No acute intracranial abnormality. 2: Chronic right posterior parietal-occipital lobe infarction with encephalomalacia. 3: Chronic age-related findings. Reviewed, dictated and finalized at location A. ERVATION ENGINEER IMPRESSION: 1. No acute intracranial abnormality. 2: Chronic right posterior parietal-occipital lobe infarction with encephalomal acia. 3: Chronic age-related findings.
[2022-04-13 21:40] VITALS: BP 145/72; PULSE 78; RESP 16; O2SAT 94
--- NOTE | 2022-04-13 22:06 | PC.NURSE ---
Dr. Johnson at bedside to assess pt.
--- NOTE | 2022-04-13 22:17 | ED.FALL ---
HPI - Fall General Chief Complaint: Fall Stated Complaint: FALL, N/V, DIZZINESS Time Seen by Provider: 04/13/22 22:02 History of Present Illness HPI Narrative: This is an 86-year-old female with past medical history of A. fib, on Eliquis, diabetes and hypertension, who presents to the emergency department after a fall. EMS reports the patient slid from her wheelchair landing on the ground. The patient is not sure if she hit her head or lost consciousness. She complains of headache, neck pain, back pain and abdominal pain. She describes this as mild to moderate, exacerbated by movement. She has no other complaints at this time. Related Data Home Medications Medication Instructions Recorded Confirmed allopurinol 100 mg tablet 100 mg PO DAILY 02/05/21 03/05/21 carvedilol 3.125 mg tablet 3.125 mg PO BID 02/05/21 03/05/21 metolazone 2.5 mg tablet 2.5 mg PO DAILY 02/05/21 03/05/21 pantoprazole 40 mg tablet,delayed 40 mg PO DAILY 02/05/21 03/05/21 release spironolactone 50 mg tablet 50 mg PO DAILY 02/05/21 03/07/21 diclofenac sodium 1 % topical gel 1 ea topical BID 03/05/21 03/07/21 metformin 500 mg tablet,extended 500 mg PO DAILY 03/05/21 03/05/21 release 24 hr potassium chloride 10 mEq 60 meq PO DAILY 03/05/21 03/05/21 tablet,extended release Allergies Allergy/AdvReac Type Severity Reaction Status Date / Time tramadol Allergy Intermediate Itching Verified 10/01/17 11:08 Review of Systems Review of Systems: CONSTITUTIONAL: Denies fever, chills, or sweats. EYES: Denies visual changes, redness, or discharge. ENT: Denies rhinorrhea, congestion, sore throat, or otalgia. CARDIOVASCULAR: Denies chest pain, palpitations, or edema. RESPIRATORY: Denies cough or dyspnea. GASTROINTESTINAL: Abdominal pain denies nausea, vomiting, or diarrhea. GENITOURINARY: Denies dysuria or hematuria. SKIN: Denies rash or itching. MUSCULOSKELETAL: Back pain denies joint pain, or myalgia. NEUROLOGIC: Headache denies numbness, dizziness, or weakness. PSYCHIATRIC: Denies anxiety or depression. PMFSH Past Medical History Medical History Atrial fibrillation CHF (congestive heart failure) CVA (cerebral vascular accident) Diabetes DM2 (diabetes mellitus, type 2) Gout Hyperlipidemia Hypertension Surgical History Surgical History History of ankle surgery left ankle x2 History of hysterectomy Family History Family History Mother Dementia Father Dementia Social History Social History Social History: the patient did live at home on her own until about 1 month ago when she had a stroke and fractured her left ankle. She is and has 3 children. 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 She stated that cyrus and Jorge Luis are her power compliance attorney for healthcare. She stated that her son Cyrus is the physician. Code status full code Smoking status: Never smoker Second hand tobacco smoke exposure: No Alcohol intake: never Substance use: never Spiritual care concerns: No Exam Narrative: GENERAL: Well-developed, well-nourished, appears to be in mild distress due to anxiety HEAD: Normocephalic, atraumatic. EYES: PERRLA and EOMI. ENT: Nares clear, no rhinorrhea or epistaxis. Mucous membranes moist. Oropharynx without tonsillar hypertrophy exudate or other lesions. NECK: Supple. No adenopathy or masses. No carotid bruits or JVD CHEST: Clear to auscultation. No respiratory distress. No wheezes rales or rhonchi HEART: Irregularly irregular. No murmur heard. Normal peripheral pulses. ABDOMEN: Soft, nontender, nondistended, normal active bowel sounds. EXTREMITIES: Normal range of motion. No edema. SKIN: Warm, dry, no rash. NEURO: Alert and oriented x3
[2022-04-13 23:18] VITALS: O2SAT 93
--- NOTE | 2022-04-13 23:18 | PC.NURSE ---
Patient report given to TOMASA Elliott. All questions answered and care of patient transferred.
[2022-04-13 23:19] VITALS: BP 128/87; PULSE 85; RESP 24; O2SAT 93
[2022-04-13 23:32] LABS: Basophils Absolute Auto 0.1 K/mm3 (0.0-0.1); Basophils Percent Auto 0.6 % (0.2-1.2); Eosinophils Absolute Auto 0.1 K/mm3 (0-0.3); Eosinophils Percent Auto 0.9 % (0-4.4); Hemoglobin 14.5 g/dL (12.0-15.0); Immature Granulocyte Absolute 0.13 K/mm3 (0.00-0.031); Immature Granulocyte Percent A 0.9 % (0-0.5); Mean Corpuscular HGB Conc 32.2 g/dl (32-36); Mean Corpuscular Hemoglobin 28.8 pg (26-34); Mean Corpuscular Volume 89.5 fl (80-100); Mean Platelet Volume 11.5 fl (7.4-10.4); Monocytes Absolute Auto 0.9 K/mm3 (0.1-0.6); Monocytes Percent Auto 6.4 % (2.6-8.5); Neutrophils Absolute Auto 11.9 K/mm3 (1.3-6.7); Neutrophils Percent Auto 82.2 % (45.5-73.1); Platelet Count Result 201 k/mm3 (150-375); Red Blood Count 5.03 M/mm3 (4.2-5.4); Red Cell Distribution Width 16.2 % (11.5-14.5); White Blood Count 14.5 K/mm3 (4.5-10.0)
[2022-04-13 23:41] LABS: Alanine Aminotransferase 19 U/L (6-35); Albumin Level 4.4 g/dL (3.5-5.1); Alkaline Phosphatase 199 U/L (38-126); Anion Gap 11 mmol/L (8-16); Aspartate Amino Transferase 32 U/L (14-36); Bilirubin,Total 0.8 mg/dL (0.2-1.3); Blood Urea Nitrogen 39 mg/dL (7-17); Calcium 9.3 mg/dL (8.4-10.2); Carbon Dioxide 28 mmol/L (22-30); Chloride 94 mmol/L (98-107); Estimated CRCL calculation 19 ml/min; Estimated Glomerular Filt Rate 27; Glucose 228 mg/dL (65-110); Potassium 4.8 mmol/L (3.4-5.0); Sodium 133 mmol/L (137-145)
[2022-04-13 23:42] LABS: INR 1.2; Prothrombin Time 14.6 Seconds (11.1-14.7)
--- NOTE | 2022-04-13 23:42 | ECG_ITS ---
Measurements Intervals [place] Rate: 90 P: AR: 0 QRS: -13 QRSD: 116 T: 41 QT: 389 QTc: 478 Interpretive Statements ATRIAL FIBRILLATION INCOMPLETE RIGHT BUNDLE BRANCH BLOCK MODERATE VOLTAGE CRITERIA FOR LVH, CONSIDER NORMAL VARIANT NONSPECIFIC ST & T-WAVE ABNORMALITY ABNORMAL ECG COMPARED TO ECG 03/06/2021 08:07:38 NO SIGNIFICANT CHANGE Electronically Signed On 04-15-2022 13:59:44 TIMERS INSPECTOR by Ronnie Jeter M.D.
[2022-04-13 23:43] VITALS: PULSE 86
[2022-04-13 23:46] VITALS: BP 131/84; PULSE 83; O2SAT 93
[2022-04-13] MEDS: ONDANSETRON INJ 4 MG/2 ML VIAL IV PUSH (23:46)
[2022-04-13 23:47] VITALS: PULSE 82; O2SAT 94
[2022-04-13 23:52] LABS: Troponin I 0.013 ng/mL (0.000-0.034)
[2022-04-14] VITALS (19 sets, daily range): BP systolic 92–134; BP diastolic 60–91; PULSE 66–86; RESP 18; O2SAT 90–100
[2022-04-14 02:28] LABS: SARS-CoV-2 RNA PCR Negative
[2022-04-14] MEDS: SODIUM CHLORIDE 0.9% IV 1,000 ML 999 ML IV CONT (02:29)
[2022-04-14 06:19] LABS: Appearance Urine Clear (Clear); Bilirubin Urine Negative (Negative); Blood Urine Negative (Negative); Color Urine Yellow (Yellow); Glucose Urine UA Negative (Negative); Ketones Urine Negative (Negative); Leukocyte Esterase Ur Negative LEU/UL (Negative); Nitrate Urine Negative (Negative); Protein Urine Negative (Negative); Specific Grav Ur 1.015 (1.001-1.035); Urobilinogen Urine 0.2 mg/dL (<2.0); pH Urine 6.5 (5.0-9.0)
[2022-04-14 06:28] LABS: Add Urine Microscopic? NO
--- NOTE | 2022-04-14 07:53 | PC.NURSE ---
0798 [facility] accepted transfer to [facility] ETA 0916 Trip # [id number]
== END 2022-04-14 10:45 | disposition short-term general hospital (02) ==
PROVIDERS: Emergency Provider Preventive Medicine Aerospace Medicine
DX: R51.9 Headache, unspecified (principal); S22.41XA Multiple fractures of ribs, right side, initial encounter for closed fracture; S19.9XXA Unspecified injury of neck, initial encounter; N17.9 Acute kidney failure, unspecified; Z20.822 Contact with and (suspected) exposure to COVID-19; I48.91 Unspecified atrial fibrillation; I50.9 Heart failure, unspecified; I11.0 Hypertensive heart disease with heart failure; E11.9 Type 2 diabetes mellitus without complications; E78.5 Hyperlipidemia, unspecified; M10.9 Gout, unspecified; Z86.73 Personal history of transient ischemic attack (TIA), and cerebral infarction without residual deficits; Z79.84 Long term (current) use of oral hypoglycemic drugs; Z79.01 Long term (current) use of anticoagulants; I45.10 Unspecified right bundle-branch block; R94.31 Abnormal electrocardiogram [ECG] [EKG]; N26.1 Atrophy of kidney (terminal); K80.20 Calculus of gallbladder without cholecystitis without obstruction; K57.90 Diverticulosis of intestine, part unspecified, without perforation or abscess without bleeding; W05.0XXA Fall from non-moving wheelchair, initial encounter
CPT/HCPCS: 36415; 51701; 70450; 71250; 72125; 72128; 72131; 74176; 80053; 81003; 84484; 85025; 85610; 93005; 96361; 96365; 96366; 96375; 99285; J0131; J2405; J7030; U0003; U0005

== ENCOUNTER 2022-05-26 20:40 | Inpatient (IN) | payer MEDICARE, SELFPAY ==
[2022-05-26] VITALS (8 sets, daily range): BP systolic 57–84; BP diastolic 37–61; PULSE 68–74; RESP 16–20; TEMP 36.5; O2SAT 97–100
--- NOTE | ~2022-05-26 | XR_ITS ---
XR chest PICC line DATE: 05/27/2022 08:03 INDICATION: PICC placement TECHNIQUE: Portable AP chest on 05/27/2022 at 0758 hours COMPARISON: 05/26/2022 CT chest abdomen pelvis 05/26/2022 portable AP chest at 2233 hours FINDINGS: Mild discoid atelectasis or scarring in the mid to lower lungs. No pulmonary consolidation, pleural effusion, pulmonary vascular congestion or pneumothorax is noted otherwise. Cardiomegaly. Aortic calcification. Osteopenia. Multiple old bilateral rib fractures. Right upper extremity PIC catheter overlies superior vena cava. IMPRESSION: Right upper extremity PIC catheter in superior vena cava Reviewed, dictated and finalized at Location [facility]. Reviewed, dictated and finalized at location A. L INSTALLER INSPECTOR
--- NOTE | ~2022-05-26 | XR_ITS ---
EXAMINATION: XR chest 1V portable DATE: 05/29/2022 05:29 INDICATION: Septic shock TECHNIQUE: frontal view of the chest was obtained. COMPARISON: Chest radiograph dated 05/27/2022 FINDINGS: Right upper extremity peripherally inserted central venous catheter (PICC) tip at the mid superior v francisca cava. Linear discoid atelectasis/scarring in the left midlung zone and medial right lower lung zo ne. New opacities at the left lung base which could represent atelectasis, pneumonia or small left pl eural effusion. No pneumothorax or right pleural effusion. Cardiomegaly. Enlargement of the central p ulmonary arteries which can be seen with pulmonary arterial hypertension. Calcified left hilar lymph nodes consistent with old granulomatous disease. A few old right rib fractures. S-shaped thoracic sco liosis. IMPRESSION: 1. New opacities at the left lung base which could represent small left pleural effusion, atelectasis or pneumonia. 2. Cardiomegaly. Reviewed, dictated and finalized at location A. AURANT HOURLY MANAGER
--- NOTE | ~2022-05-26 | CT_ITS ---
EXAMINATION: CT brain wo con DATE: 05/26/2022 22:59 INDICATION: Fall. Head injury. On anticoagulants. TECHNIQUE: Computed tomography (CT) of the head was performed without intravenous contrast. The mA wa s adjusted according to patient size. Iterative reconstruction technique was employed. Exam dose: 11 35.00 mGy-cm total exam DLP. COMPARISON: 04/13/2022 CT brain FINDINGS: There is a very prominent left frontal cephalohematoma. No underlying skull fracture. No coup or contrecoup intracranial injury is identified. No intracranial mass lesion or hemorrhage or recent cerebrovascular accident is evident. There is an old right occipital cerebrovascular infarct, also present on 04/13/2022. Bilateral carotid siphon internal carotid artery and vertebrobasilar artery calcifications. There is nonspecific diminished attenuation of the cerebral white matter, likely due to chronic small vessel i schemic changes. No subdural or epidural hematoma is detected. IMPRESSION: Very prominent left frontal cephalohematoma; no skull fracture or acute intracranial fin ding Chronic right occipital cerebrovascular infarct Cerebral atherosclerosis and chronic small vessel ischemic changes of the cerebral white matter Reviewed, dictated and finalized at [facility]. Reviewed, dictated and finalized at location A. EKEEPER AND LAUNDRY ASSISTANT IMPRESSION: Very prominent left frontal cephalohematoma; no skull fracture or acute intracranial finding Chronic right occipital cerebrovascular infarct Cerebral atherosclerosis and chronic small vessel ischemic changes of the cereb ral white matter
--- NOTE | ~2022-05-26 | XR_ITS ---
XR elbow RT min 3V DATE: 05/26/2022 21:21 INDICATION: Pain and laceration following a fall TECHNIQUE: 4 views COMPARISON: None FINDINGS: There is osteopenia. No fracture or dislocation, periosteal reaction or bone destruction is evident. No elbow joint effusion is noted. IMPRESSION: Osteopenia No fracture or dislocation or joint effusion Reviewed, dictated and finalized at location A. E SHORER
--- NOTE | ~2022-05-26 | CT_ITS ---
EXAMINATION: CT facial & cervical spine wo DATE: 05/26/2022 23:04 INDICATION: Fall. Left frontal cephalohematoma TECHNIQUE: Computed tomography (CT) of the facial bones and maxillofacial region was performed withou t intravenous contrast. Automated exposure control and iterative reconstruction technique were employ ed. Exam dose: 385.34 mGy-cm total exam DLP. COMPARISON: 05/26/2022 CT brain FINDINGS: Prominent left frontal cephalohematoma. No frontal skull fracture. The nasal bones and anterior maxillary spine are intact. Frontozygomatic s utures, orbital rims and hayens, maxillary bones and zygomatic arches are intact. Normal alignment at the temporomandibular joints. No mandibular fracture is evident. There is minimal mucosal periosteal thickening at the floor of the left maxillary sinus. The paranasa l sinuses and mastoid air cells are otherwise normally developed and aerated. IMPRESSION: Left frontal cephalohematoma; no facial fracture Reviewed, dictated and finalized at Location [facility]. Reviewed, dictated and finalized at location A. UNT ENGINEER
--- NOTE | ~2022-05-26 | XR_ITS ---
XR abdomen obstructive series 05/29/2022 10:05 Indication: Abdominal distention Procedure: Supine and upright views of abdomen. Study limited for evaluation of the lower pelvis. Comparison: No prior studies for comparison. Findings: Bowel gas pattern is nonobstructive. No renal stones are identified. Cardiomegaly. Levoscol iosis. No acute osseous abnormality. Impression: 1: No acute abdominal abnormality. Reviewed, dictated and finalized at location A. GER Impression: 1: No acute abdominal abnormality.
--- NOTE | ~2022-05-26 | XR_ITS ---
EXAMINATION: XR chest 1V portable DATE: 06/01/2022 09:14 INDICATION: Hypoxia TECHNIQUE: frontal view of the chest was obtained. COMPARISON: Chest radiograph dated 05/29/2022 FINDINGS: Right upper extremity peripherally inserted central venous catheter (PICC) tip at the cephalad super ior vena cava. Cardiomegaly. Unchanged bandlike discoid atelectasis at the left midlung zone. Increase in a gradient of inferior predominant hazy airspace opacities in the bilateral mid lung zones with more dense opac ities in the lower lung zones consistent with increasing small right and small to moderate left pleur al effusions with associated atelectasis and/or pneumonia. Mild increased interstitial pattern with s ome bronchial wall cuffing suggesting mild pulmonary edema. No pneumothorax. Enlargement of the centr al pulmonary arteries consistent with pulmonary arterial hypertension. IMPRESSION: 1. Likely congestive heart failure with cardiomegaly, mild pulmonary edema and increasing small right and ottab-nb-ozuurozg left pleural effusions. 2. Opacities at the bilateral lung bases could represent associated atelectasis or pneumonia. Reviewed, dictated and finalized at location A. AGE ENGINE OPERATOR IMPRESSION: 1. Likely congestive heart failure with cardiomegaly, mild pulmonary edema and increasing small right and ayetf-qf-[id number] left pleural effusions. 2. Opacities at the bilateral lung bases could represent associated atelectasis or pneumonia.
--- NOTE | ~2022-05-26 | CT_ITS ---
EXAMINATION: CT chest abdomen pelvis wo con DATE: 05/26/2022 23:13 INDICATION: Blunt trauma to chest and abdomen TECHNIQUE: Computed tomography (CT) of the chest, abdomen and pelvis was performed without intravenou s contrast. Automated exposure control and iterative reconstruction technique were employed. Exam dos e: 1053.29 mGy-cm total exam DLP. COMPARISON: 04/14/2022 CT chest abdomen pelvis FINDINGS: Cardiomegaly. No pericardial or pleural effusion. No thoracic aortic aneurysm. There is tho racic aortic and coronary artery atherosclerotic calcification. No hilar or mediastinal mass lesion or lymphadenopathy. Surface nodularity of liver suggests cirrhosis. No hepatic, splenic, pancreatic, and adrenal or renal space-occupying mass lesion is evident on this limited noncontrast examination. There are numerous small stones in the dependent aspect of the gallbladder. No gallbladder wall thick ening or pericholecystic fluid or fat stranding. No bile duct or pancreatic duct dilatation. No ureteral calculus or hydroureteronephrosis. Bilateral renal atrophy. Status post hysterectomy. There is extensive calcification of the abdominal aorta and iliac arteries but no abdominal aortic an eurysm. No intraperitoneal or retroperitoneal or pelvic mass lesion or adenopathy or ascites. Subtle subacute nondisplaced posterolateral right eighth through 11th rib fractures. There is evidenc e of bilateral additional old rib fractures. There is a prominent amount fecal material in the rectum and colon. Mild colonic diverticulosis; no C T evidence of diverticulitis. No bowel obstruction. No intraperitoneal free air. No significant change of vertebroplasty at T7, prominent loss of height and anterior wedging at T8 an d moderately prominent anterior wedge compression fracture deformity at L1 since 04/14/2022. IMPRESSION: Chronic T7, T8 and L1 fracture deformities Subtle subacute or old right rib fractures. Old left rib fractures Cardiomegaly Cholelithiasis Cirrhosis Reviewed, dictated and finalized at Location A. Reviewed, dictated and finalized at location A. R DEVELOPER
--- NOTE | ~2022-05-26 | XR_ITS ---
XR chest 1V portable DATE: 05/26/2022 22:50 INDICATION: Chest trauma TECHNIQUE: Portable upright AP chest COMPARISON: 04/14/2022 CT chest abdomen pelvis FINDINGS: This is a very limited single portable view with considerable rotation of the patient. Cardiomegaly. No pulmonary consolidation, pleural effusion or pneumothorax or pulmonary vascular sid estion is noted. Diffuse osteopenia. Multiple bilateral rib fracture deformities are noted, possibly old. Recent rib fracture is not exclu ded. Very prominent scoliosis of the thoracic and lumbar spine. IMPRESSION: Limited examination Reviewed, dictated and finalized at location A. CH PATHOLOGY ASSISTANT IMPRESSION: Limited examination
--- NOTE | ~2022-05-26 | XR_ITS ---
XR tibia fibula RT 2V DATE: 05/26/2022 21:21 INDICATION: Right lower leg pain after fall. Laceration. TECHNIQUE: AP and crosstable lateral views of right lower leg COMPARISON: None FINDINGS: There is diffuse osteopenia. There is no fracture or dislocation, periosteal reaction or faye ne destruction is evident. There is mild osteoarthritis at the right knee joint. IMPRESSION: Osteopenia No fracture or dislocation is detected Reviewed, dictated and finalized at location A. RVISOR WATERPROOFING
--- NOTE | ~2022-05-26 | US_ITS ---
US renal BI DATE: 05/28/2022 11:58 INDICATION: Acute kidney insufficiency. Evaluate for hydronephrosis. TECHNIQUE: Real-time imaging of kidneys and urinary bladder COMPARISON: 05/26/2022 CT chest abdomen pelvis FINDINGS: Right kidney measures approximately 10 cm length, left kidney approximately 9.6 cm. No olivia l mass lesion or hydronephrosis is noted on either side. The urinary bladder is relatively evacuated, the Tao catheter in place.. IMPRESSION: No evidence of hydronephrosis of either kidney Reviewed, dictated and finalized at Location [facility]. Reviewed, dictated and finalized at location A. E ENGINEER OUTSIDE PLANT
--- NOTE | 2022-05-26 20:55 | ECG_ITS ---
Measurements Intervals [place] Rate: 71 P: VT: 0 QRS: -8 QRSD: 116 T: 136 QT: 441 QTc: 481 Interpretive Statements ATRIAL FIBRILLATION INCOMPLETE RIGHT BUNDLE BRANCH BLOCK ANTEROSEPTAL INFARCT, AGE INDETERMINATE BORDERLINE ST-T WAVE ABNORMALITY- DIFFUSE LEADS BASELINE ARTIFACT- I, II, AVR, V4-V6 ABNORMAL ECG COMPARED TO ECG 04/13/2022 23:45:57 MYOCARDIAL INFARCT FINDING NOW PRESENT Electronically Signed On 05-27-2022 8:09:41 BUSINESS CENTER ATTENDANT by Stephen Osman D.O.
--- NOTE | 2022-05-26 20:55 | ED.FALL ---
HPI - Fall General Chief Complaint: Fall <NAYELY Quick Last Filed: 05/27/22 02:35> Stated Complaint: fall, leg lac <Lianne Metz PA-C - Last Filed: 05/27/22 02:35> Time Seen by Provider: 05/26/22 20:40 <NAYELY Quick Last Filed: 05/27/22 02:35> History of Present Illness HPI Narrative: 86 year old female here from the nursing facility for evaluation after a fall today. Patient was using a lift assist going from sitting to standing when she fell. Patient is unsure how she fell, denies preceding symptoms. She states that she just woke up on the ground. States that she hurts all over . She did hit her head and she is on Eliquis. Has a large leg laceration to her right lower extremity and a laceration to her right elbow. <NAYELY Quick Last Filed: 05/27/22 02:35> Related Data Home Medications: Home Medications Medication Instructions Recorded Confirmed allopurinol 100 mg tablet 100 mg PO DAILY 02/05/21 05/27/22 carvedilol 3.125 mg tablet 3.125 mg PO BID 02/05/21 05/27/22 metolazone 2.5 mg tablet 2.5 mg PO DAILY 02/05/21 05/27/22 pantoprazole 40 mg tablet,delayed 40 mg PO DAILY 02/05/21 05/27/22 release metformin 500 mg tablet,extended 500 mg PO DAILY 03/05/21 05/27/22 release 24 hr potassium chloride 10 mEq 20 meq PO BID 03/05/21 05/27/22 tablet,extended release acetaminophen 500 mg tablet 1,000 mg PO Q6H PRN Pain 1-5 05/27/22 05/27/22 atorvastatin 40 mg tablet 80 mg PO HS 05/27/22 05/27/22 dulaglutide 0.75 mg/0.5 mL 0.75 mg subcut WEEKLY 05/27/22 05/27/22 subcutaneous pen injector guaifenesin 600 mg tablet, 600 mg PO Q12H PRN Congestion 05/27/22 05/27/22 extended release 12 hr insulin glargine 100 unit/mL 10 unit subcut BID 05/27/22 05/27/22 subcutaneous solution insulin lispro 100 unit/mL 1 sliding scale dose subcut 05/27/22 05/27/22 subcutaneous pen (Humalog KwikPen TIDWMEAL (U-100) Insulin) lidocaine 5 % topical patch 2 patch transdermal DAILY 05/27/22 05/27/22 (Lidoderm) menthol 0.44 %-zinc oxide 20.6 % 1 applic topical QSHIFT 05/27/22 05/27/22 topical ointment (Calmoseptine) oxycodone 5 mg tablet 2.5 mg PO Q4H PRN Pain 6-10 05/27/22 05/27/22 sennosides 8.6 mg-docusate sodium 1 tab-cap PO BID PRN Constipation 05/27/22 05/27/22 50 mg tablet (Senna Plus) sitagliptin phosphate 50 mg tablet 25 mg PO DAILY 05/27/22 05/27/22 (Januvia) <Lianne Metz PA-C - Last Filed: 05/27/22 02:35> Allergies/Adverse Reactions: Allergies Allergy/AdvReac Type Severity Reaction Status Date / Time tramadol Allergy Intermediate Itching Verified 10/01/17 11:08 <Lianne Metz PA-C - Last Filed: 05/27/22 02:35> Review of Systems Review of Systems: Gen.: Denies fevers or chills Eyes: Denies eye pain or visual change ENT: Denies congestion Respiratory: Denies shortness of breath or cough CV: Denies chest pain or palpitations GI: Denies abdominal pain nausea, emesis or diarrhea denies burning, urgency, frequency or hematuria Musculoskeletal: Denies back pain or muscle pain Neuro: Denies numbness, tingling, weakness or focal weakness Skin: Reports laceration to right lower leg and right elbow Except as documented, all other systems reviewed and negative <Lianne Metz PA-C - Last Filed: 05/27/22 02:35> [facility] Past Medical History Medical History: Medical History Atrial fibrillation CHF (congestive heart failure) CVA (cerebral vascular accident) Diabetes DM2 (diabetes mellitus, type 2) Gout Hyperlipidemia Hypertension <Lianne Metz PA-C - Last Filed: 05/27/22 02:35> Surgical History Surgical History: Surgical History History of ankle surgery left ankle x2 History of hysterectomy <Lianne Metz PA-C - Last Filed: 05/27/22
--- NOTE | 2022-05-26 21:00 | PC.NURSE ---
ERP notified of low BP and fluids started. Pt reports A/O x 4
[2022-05-26] MEDS: SODIUM CHLORIDE 0.9% IV 1,000 ML 999 ML IV CONT (21:02)
--- NOTE | 2022-05-26 22:00 | PC.NURSE ---
hold 2nd liter of fluid per ERP
[2022-05-26 22:27] LABS: Influenza A QL RT-PCR Negative (Negative); Influenza B QL RT-PCR Negative (Negative); SARS-CoV-2 RNA PCR Negative
[2022-05-26 22:33] LABS: Basophils Absolute Auto 0.1 K/mm3 (0.0-0.1); Basophils Percent Auto 0.6 % (0.2-1.2); Eosinophils Percent Auto 0.2 % (0-4.4); Hematocrit 40.7 % (37.0-47.0); Hemoglobin 13.2 g/dL (12.0-15.0); Immature Granulocyte Absolute 0.28 K/mm3 (0.00-0.031); Immature Granulocyte Percent A 1.7 % (0-0.5); Lymphocytes Percent Auto 3.7 % (18.3-44.2); Mean Corpuscular HGB Conc 32.4 g/dl (32-36); Mean Corpuscular Hemoglobin 29.3 pg (26-34); Mean Corpuscular Volume 90.4 fl (80-100); Mean Platelet Volume 11.2 fl (7.4-10.4); Monocytes Absolute Auto 0.7 K/mm3 (0.1-0.6); Monocytes Percent Auto 4.5 % (2.6-8.5); Neutrophils Absolute Auto 14.3 K/mm3 (1.3-6.7); Neutrophils Percent Auto 89.3 % (45.5-73.1); Platelet Count Result 146 k/mm3 (150-375)
[2022-05-26 22:44] LABS: INR 2.1; Prothrombin Time 22.8 Seconds (11.1-14.7)
[2022-05-26 22:45] LABS: Partial Thromboplastin Time 31.7 SECONDS (22.3-36.8)
[2022-05-26 22:46] LABS: Alanine Aminotransferase 18 U/L (6-35); Albumin Level 3.3 g/dL (3.5-5.1); Alkaline Phosphatase 155 U/L (38-126); Anion Gap 7 mmol/L (8-16); Aspartate Amino Transferase 24 U/L (14-36); Blood Urea Nitrogen 43 mg/dL (7-17); Calcium 7.6 mg/dL (8.4-10.2); Carbon Dioxide 30 mmol/L (22-30); Chloride 90 mmol/L (98-107); Estimated CRCL calculation 21 ml/min; Estimated Glomerular Filt Rate 27; Glucose 115 mg/dL (65-110); Sodium 127 mmol/L (137-145)
[2022-05-26 22:58] LABS: Troponin I 0.028 ng/mL (0.000-0.034)
[2022-05-26] MEDS: SODIUM CHLORIDE 0.9% IV 500 ML 999 ML IV CONT (23:35)
[2022-05-27] VITALS (97 sets, daily range): BP systolic 63–133; BP diastolic 37–81; PULSE 66–90; RESP 15–47; TEMP 36.7–37.1; O2SAT 90–100; BMI 30.4
--- NOTE | 2022-05-27 | ECHO_ITS ---
Patient Info Name: Radha Pizano Age: 86 years : 1935 Gender: Female Ht: 62 in Wt: 166 lbs BSA: 1.84 m2 Technical Quality: Fair Exam Date: 05/27/2022 11:30 AM Exam Location: [facility] Pulmonary Patient Status: Inpatient Admit Date: 05/27/2022 Staff Ordering Physician: Shantel Sunshine MD Casing Operator: Zulma Yee RDCS Attending Provider: Albert Rosas MD Referring Physician: Bita DURANT; Exam Type: CA echo doppler color flow Study Info Complete two-dimensional, color flow and Doppler transthoracic echocardiogram is performed. Summary 1. Complete two-dimensional, color flow and Doppler transthoracic echocardiogram is performed. 2. Left ventricular chamber dimension is normal. 3. Left ventricular systolic function is normal, estimated at 65-70%. 4. There is mildly increased left ventricular wall thickness. 5. Right ventricular chamber dimension is enlarged. 6. Right ventricular systolic function is normal. 7. Left atrial chamber dimension is severely enlarged. 8. Right atrial chamber dimension is severely enlarged. 9. There is moderate to severe tricuspid valve regurgitation. Left Ventricle Left ventricular chamber dimension is normal. Left ventricular systolic function is normal, estimated at 65-70%. There is mildly increased left ventricular wall thickness. Right Ventricle Right ventricular chamber dimension is enlarged. Right ventricular systolic function is normal. Left Atria Left atrial chamber dimension is severely enlarged. Right Atria Right atrial chamber dimension is severely enlarged. Aortic Valve The aortic valve is trileaflet. There is no aortic valve stenosis. There is no aortic valve regurgitation. Pulmonic Valve The pulmonic valve is not well visualized. Mitral Valve The mitral valve has normal leaflets. There is no mitral valve stenosis. There is trace mitral valve regurgitation. Tricuspid Valve There is moderate to severe tricuspid valve regurgitation. Pericardium/Pleural There is no pericardial effusion. Aorta The aortic root size at the sinus of Valsalva is normal. Left Ventricular Outflow Tract Name Value Normal LVOT 2D LVOT Diameter 2.0 cm LVOT Doppler LVOT Peak Gradient 3 mmHg LVOT Mean Gradient 1 mmHg LVOT VTI 17 cm LVOT VTI/AV VTI Ratio 1.0 LVOT Stroke Volume 54 ml LVOT CO 3.4 l/min LVOT CI 1.9 l/min/m2 Pulmonic Valve Name Value Normal PV Doppler PV Peak Gradient 4 mmHg Tricuspid Valve Name Value Normal
[2022-05-27] MEDS: SODIUM CHLORIDE 0.9% IV 500 ML 999 ML IV CONT (00:27)
[2022-05-27 01:05] LABS: Lactic Acid Reflex 3.7 mmol/L (0.7-2.0)
[2022-05-27 01:19] LABS: Alveolar/Arterial O2 Gradient 36.2 mmHg; Base Excess ABG -0.5 mEq/l (+/-2.0); Carboxyhemoglobin 0.7 % THb (0-2.0); Device ROOM AIR; Fractional Inspired Oxygen 21 %; HCO3 ABG 23.3 mEq/l (22.0-26.0); Methemoglobin ABG 0.2 %THb (0-1.5); Modified Allen's Test Pass; Oxygen Content ABG 16.6 %vol (16.0-22.0); Oxygen Saturation ABG 94.9 % (95.0-100.0); Oxyhemoglobin 91.9 % THb (90.0-100.0); PCO2 ABG 35.5 mmHg (35.0-45.0); PO2 FiO2 Ratio Arterial Blood 3.38 %; Reduced Hemoglobin 7.2 %THb (0-5.0); Site Drawn RIGHT RADIAL; Total Hemoglobin 12.8 g/dL (12.0-18.0); pH ABG 7.435 (7.350-7.450)
[2022-05-27 01:55] LABS: Mucus Urine Heavy /lpf; RBC Urine 51-75 /hpf (0-2); WBC Urine >75 /hpf
[2022-05-27 01:59] LABS: Appearance Urine Cloudy (Clear); Color Urine Light Brown (Yellow); Specific Grav Ur 1.015 (1.001-1.035); pH Urine 6.5 (5.0-9.0)
[2022-05-27 02:00] LABS: Protein Urine 2+ mg/dL (Negative)
[2022-05-27 02:04] LABS: Add Urine Microscopic? YES; Bilirubin Urine Negative (Negative); Blood Urine 1+ (Negative); Glucose Urine UA Negative (Negative); Ketones Urine Negative (Negative); Leukocyte Esterase Ur 3+ LEU/UL (Negative); Nitrate Urine Negative (Negative)
[2022-05-27] MEDS: SODIUM CHLORIDE 0.9% IV 1,000 ML 999 ML IV CONT ×2 (02:24→06:35)
--- NOTE | 2022-05-27 03:03 | PM.IMHP ---
H&P: HPI History of Present Illness Date/Time: 05/27/22 03:03 Chief Complaint: Fall Narrative: This is an 86-year-old female with past medical history significant for type 2 diabetes mellitus, atrial fibrillation, congestive heart failure, this dyslipidemia, gout, stroke patient did recently discharged to [facility] for rehabilitation and she has learned to walk with a walker she was in her bedroom standing using her walker trying to use the bathroom and somehow she fell but has no recollection of the events or exactly how the fall went down according to staff members she was down for maybe 3-5 minutes there was no loss of consciousness. The days prior to these patient has been in her usual state of health denies any nausea, vomiting, diarrhea. Preliminary workup was significant for blood cell count of 16,000, sodium 127, chloride 90, urinalysis was significant for numerous WBCs present 50-75 per high-power field. A head CT was reported as: FINDINGS: There is a very prominent left frontal cephalohematoma. No underlying skull fracture. No coup or contrecoup intracranial injury is identified. No intracranial mass lesion or hemorrhage or recent cerebrovascular accident is evident. There is an old right occipital cerebrovascular infarct, also present on 04/13/2022. Bilateral carotid siphon internal carotid artery and vertebrobasilar artery calcifications. There is nonspecific diminished attenuation of the cerebral white matter, likely due to chronic small vessel ischemic changes. No subdural or epidural hematoma is detected. IMPRESSION:? Very prominent left frontal cephalohematoma; no skull fracture or acute intracranial finding Chronic right occipital cerebrovascular infarct Cerebral atherosclerosis and chronic small vessel ischemic changes of the cerebral white matter A CT of chest abdomen and pelvis was reported as: FINDINGS: Cardiomegaly. No pericardial or pleural effusion. No thoracic aortic aneurysm. There is thoracic aortic and coronary artery atherosclerotic calcification. No hilar or mediastinal mass lesion or lymphadenopathy. Surface nodularity of liver suggests cirrhosis. No hepatic, splenic, pancreatic, and adrenal or renal space-occupying mass lesion is evident on this limited noncontrast examination. There are numerous small stones in the dependent aspect of the gallbladder. No gallbladder wall thickening or pericholecystic fluid or fat stranding. No bile duct or pancreatic duct dilatation. No ureteral calculus or hydroureteronephrosis. Bilateral renal atrophy. Status post hysterectomy. There is extensive calcification of the abdominal aorta and iliac arteries but no abdominal aortic aneurysm. No intraperitoneal or retroperitoneal or pelvic mass lesion or adenopathy or ascites. Subtle subacute nondisplaced posterolateral right eighth through 11th rib fractures. There is evidence of bilateral additional old rib fractures. There is a prominent amount fecal material in the rectum and colon. Mild colonic diverticulosis; no CT evidence of diverticulitis. No bowel obstruction. No intraperitoneal free air. No significant change of vertebroplasty at T7, prominent loss of height and anterior wedging at T8 and moderately prominent anterior wedge compression fracture deformity at L1 since 04/14/2022. IMPRESSION:? Chronic T7, T8 and L1 fracture deformities Subtle subacute or old right rib fractures. Old left rib fractures Cardiomegaly Cholelithiasis Cirrhosis Review of Systems Review of Systems: Fall ROS unobtainable: Yes unobtainable due to mental status (Patient has no recollections of the event this denies any other complaints ) [facility] Past Medical History Medical History Atrial fibrillation CHF (congestive heart failure) CVA (cerebral vascular accident) Diabetes DM2 (diabetes mellitus, type 2) Gout Hyperlipidemia Hypertension Surgical History Surgical History (Reviewed 05/26/22
[2022-05-27 03:54] LABS: Reflex Lactic Acid Yes or No Add Lactic
--- NOTE | 2022-05-27 05:34 | ADMGEN ---
This patient, Radha Pizano, was admitted to Intensive Care Unit-5at [id number]. Patient/family oriented to hospital policies and general routines including ID bracelet, bed and alarms, visiting hours, pain management, procedures, bathroom and other care routines, personal items, smoking policy, room service/diet, and visiting hours. Information on how to activate the Rapid Response Team has been discussed. Patient/Family are encouraged to report perceived risks to care and to ask questions if they do not understand what they are told or what they should do.
[2022-05-27 05:56] LABS: Lactic Acid 4.1 mmol/L (0.7-2.0)
--- NOTE | 2022-05-27 08:53 | WPDCNINT ---
Assessment and Plan Assessment and plan (1) Septic shock: Code(s): A41.9 - Sepsis, unspecified organism; R65.21 - Severe sepsis with septic shock Status: Acute Assessment and Plan: Septic shock with leukocytosis, elevated lactic acid levels, acute renal failure, hypotension refractory to IV fluid boluses, -patient received total of 4 L IV fluid bolus -started on Blaise-Synephrine per peripheral access has a son who is the physician wanted to hold off on the central line -patient did get a PICC line this morning -target MAP > 65 mm Hg -repeat lactic acid has normalized -patient states her normal systolic blood pressures are in the 80s -low urine output, has a Tao catheter and willl continue to monitor urine output -continue vancomycin and Zosyn (renally dosed, started on 05/26/2022) -05/26/2022 blood cultures obtained and pending -05/26/2022 urine cultures obtained and pending (2) UTI (urinary tract infection): Code(s): N39.0 - Urinary tract infection, site not specified Status: Acute Assessment and Plan: UA reflective of UTI, patient started on Zosyn and vancomycin -urine cultures are pending (3) Acute kidney injury: Code(s): N17.9 - Acute kidney failure, unspecified Status: Acute Assessment and Plan: Patient presented with acute kidney injury, creatinine of 1.8 on admission (baseline creatinine 1.0 to 1.20) -could be related to infection, septic shock, UTI. Patient also takes bumetanide, carvedilol and metolazone at home -will obtain renal ultrasound -CK levels within normal limits, -urine lytes not reflective of prerenal picture -urine eosinophils pending -received adequate IV fluids, -started on clear diet -will continue to monitor urine, renal function and electrolytes (4) Fall: Code(s): W19.XXXA - Unspecified fall, initial encounter Status: Acute Assessment and Plan: Patient had a mechanical fall, hitting head, a right elbow has a right lower extremity -this could be possibly related to hypotension and septic shock -will obtain PT/ OT once patient is stable 05/26/2022: Chest x-ray did not show any pulmonary consolidation, pleural effusion or pneumothorax or pulmonary vascular congestion.? Multiple bilateral rib fracture deformities were noted, recent fractures not excluded.? Very prominent scoliosis of the thoracic and lumbar spine.? 05/27/2022: CT of the brain showed prominent left frontal cephalhematoma no skull fractures are acute intracranial bleeding, chronic right occipital infarct and chronic small vessel ischemic changes of the several white matter.? 05/27/2022: CT scan of the face and cervical spine showed left frontal cephalhematoma do facial fractures.? 05/27/2022: CT scan of the chest, abdomen/pelvis showed chronic T7-T8 and L1 fracture deformities.? Subtle subacute to old right rib fractures.? Old left rib fractures.? Cardiomegaly, cholelithiasis, cirrhosis.? (5) Atrial fibrillation: Code(s): I48.91 - Unspecified atrial fibrillation Status: Chronic Assessment and Plan: Patient has a history of atrial fibrillation, currently rate controlled -patient is on Eliquis at home, currently on hold due to right lower extremity laceration and bleeding, cephalhematoma of the forehead (6) CHF (congestive heart failure): Code(s): I50.9 - Heart failure, unspecified Status: Chronic Assessment and Plan: History of heart failure, on metolazone and Bumex at home -currently on hold due to hypotension and shock -will obtain echocardiogram 03/07/2021: Echocardiogram: LV chamber dimension is normal, LV systolic function estimated to be 55-60%. Severe biatrial dilatation trivial mitral valve regurg, mild tricuspid valve regurg, RV chamber dimension is normal, (7) Cirrhosis: Code(s): K74.60 - Unspecified cirrhosis of liver Status: Acute Assessment and Plan: CT scan of the abdomen and pelvis showed cirrhosis
[2022-05-27 09:01] LABS: Basophils Absolute Auto 0.1 K/mm3 (0.0-0.1); Basophils Percent Auto 0.5 % (0.2-1.2); Eosinophils Absolute Auto 0.1 K/mm3 (0-0.3); Eosinophils Percent Auto 0.4 % (0-4.4); Hematocrit 35.7 % (37.0-47.0); Hemoglobin 11.6 g/dL (12.0-15.0); Immature Granulocyte Percent A 2.1 % (0-0.5); Lymphocytes Absolute Auto 0.85 K/mm3 (0.9-3.2); Lymphocytes Percent Auto 4.5 % (18.3-44.2); Mean Corpuscular HGB Conc 32.5 g/dl (32-36); Mean Corpuscular Hemoglobin 29.5 pg (26-34); Mean Corpuscular Volume 90.8 fl (80-100); Mean Platelet Volume 11.3 fl (7.4-10.4); Monocytes Absolute Auto 1.1 K/mm3 (0.1-0.6); Monocytes Percent Auto 5.9 % (2.6-8.5); Neutrophils Absolute Auto 16.6 K/mm3 (1.3-6.7); Neutrophils Percent Auto 86.6 % (45.5-73.1); Nucleated Red Blood Cells Perc 0.1 % (0.0-0.2); Platelet Count Result 171 k/mm3 (150-375); Red Blood Count 3.93 M/mm3 (4.2-5.4); Red Cell Distribution Width 18.2 % (11.5-14.5); White Blood Count 19.1 K/mm3 (4.5-10.0)
[2022-05-27] MEDS: LIDOCAINE 5% PATCH 2 PATCH TRANSDERM (09:02)
[2022-05-27 09:08] LABS: Creatinine Urine 69.6 mg/dL
[2022-05-27 09:10] LABS: Lactic Acid Reflex 1.6 mmol/L (0.7-2.0); Lipase 91 U/L (23-300); Magnesium 1.3 mg/dL (1.6-2.3); Phosphorus 2.9 mg/dL (2.5-4.5)
[2022-05-27 09:17] LABS: Alanine Aminotransferase 18 U/L (6-35); Albumin Level 2.9 g/dL (3.5-5.1); Alkaline Phosphatase 126 U/L (38-126); Anion Gap 8 mmol/L (8-16); Aspartate Amino Transferase 22 U/L (14-36); Blood Urea Nitrogen 43 mg/dL (7-17); CRP 2.2 mg/dL (<1.0); Calcium 6.8 mg/dL (8.4-10.2); Carbon Dioxide 25 mmol/L (22-30); Chloride 98 mmol/L (98-107); Creatine Kinase 38 U/L (30-135); Estimated CRCL calculation 20 ml/min; Estimated Glomerular Filt Rate 28; Glucose 110 mg/dL (65-110); Potassium 2.8 mmol/L (3.4-5.0); Sodium 131 mmol/L (137-145)
[2022-05-27 09:28] LABS: Potassium Urine Random 30.1 meq/L; Sodium Urine Random 61 meq/L
[2022-05-27 10:04] LABS: INR 2.1; Prothrombin Time 22.9 Seconds (11.1-14.7)
[2022-05-27 10:05] LABS: Partial Thromboplastin Time 34.9 SECONDS (22.3-36.8)
[2022-05-27] MEDS: MAGNESIUM SULF 2 GM/WATER 50ML 2 GM/50 ML BAG IVPB (10:28)
[2022-05-27] MEDS: KCL 40 MEQ/WATER 100 ML 100 ML 25 ML IVPB (10:28)
[2022-05-27] MEDS: CALCIUM GLUC 2,000 MG/NS 100ML 2,000 MG/100 ML BAG 100 MG IVPB (10:28)
[2022-05-27] MEDS: PANTOPRAZOLE SODIUM IV 40 MG VIAL IV PUSH (10:45)
[2022-05-27 11:24] LABS: Eosinophil Urine None Seen % (None Seen)
[2022-05-27] MEDS: CELLULOSE OXIDIZED 4 x 8 INCH 1 PKT XX (11:24)
[2022-05-27] MEDS: CELLULOSE OXIDIZED 2 x 3 INCH 1 PKT XX (11:24)
[2022-05-27] MEDS: NOREPINEPHRINE 8 MG/D5W 250 ML 8 MG/250 ML BAG 9.38 MG IV CONT (12:08)
[2022-05-27] MEDS: CENTRAL LINE FLUSH 10 ML IV PUSH ×2 (16:06→22:00)
[2022-05-27] MEDS: CELLULOSE OXIDIZED 4 x 8 INCH 5 PKT XX (18:08)
[2022-05-27] MEDS: INSULIN ASPART (*BKC) 100 UNITS/ML SUB-Q (18:17)
[2022-05-27 18:19] LABS: Glucose Point of Care 254 mg/dl (65-105)
[2022-05-27 18:19] LABS: Glucose Point of Care 174 mg/dl (65-105)
[2022-05-28] VITALS (41 sets, daily range): BP systolic 78–122; BP diastolic 43–81; PULSE 70–89; RESP 20–33; TEMP 36.3–36.6; O2SAT 90–99
[2022-05-28] MEDS: NOREPINEPHRINE 8 MG/D5W 250 ML 8 MG/250 ML BAG 20.63 MG IV CONT (00:35)
[2022-05-28 01:18] LABS: Glucose Point of Care 191 mg/dl (65-105)
[2022-05-28 06:33] LABS: Basophils Absolute Auto 0.1 K/mm3 (0.0-0.1); Basophils Percent Auto 0.7 % (0.2-1.2); Eosinophils Absolute Auto 0.3 K/mm3 (0-0.3); Eosinophils Percent Auto 1.3 % (0-4.4); Hemoglobin 10.2 g/dL (12.0-15.0); Immature Granulocyte Absolute 0.54 K/mm3 (0.00-0.031); Immature Granulocyte Percent A 2.9 % (0-0.5); Lymphocytes Absolute Auto 0.92 K/mm3 (0.9-3.2); Lymphocytes Percent Auto 4.9 % (18.3-44.2); Mean Corpuscular HGB Conc 31.9 g/dl (32-36); Mean Corpuscular Hemoglobin 29.7 pg (26-34); Mean Platelet Volume 11.5 fl (7.4-10.4); Monocytes Absolute Auto 1.5 K/mm3 (0.1-0.6); Monocytes Percent Auto 7.8 % (2.6-8.5); Neutrophils Absolute Auto 15.4 K/mm3 (1.3-6.7); Neutrophils Percent Auto 82.4 % (45.5-73.1); Nucleated Red Blood Cells Perc 0.1 % (0.0-0.2); Platelet Count Result 150 k/mm3 (150-375); Red Blood Count 3.44 M/mm3 (4.2-5.4); Red Cell Distribution Width 18.2 % (11.5-14.5); White Blood Count 18.7 K/mm3 (4.5-10.0)
[2022-05-28 06:45] LABS: Glucose Point of Care 202 mg/dl (65-105)
[2022-05-28] MEDS: INSULIN ASPART (*BKC) 100 UNITS/ML SUB-Q ×2 (06:46→11:27)
[2022-05-28] MEDS: CENTRAL LINE FLUSH 10 ML IV PUSH ×3 (07:09→20:59)
--- NOTE | 2022-05-28 07:54 | WPDINTPN ---
Progress Note: A&P Assessment and Plan (1) Septic shock: Code(s): A41.9 - Sepsis, unspecified organism; R65.21 - Severe sepsis with septic shock Status: Acute Assessment and Plan: Septic shock with leukocytosis, elevated lactic acid levels, acute renal failure, hypotension refractory to IV fluid boluses, -patient received total of 4 L IV fluid bolus -patient initially was started on Blaise-Synephrine per peripheral access in the ER as her son who is the physician wanted to hold off on the central line -patient did get a PICC line 05/27, Blaise-Synephrine was switched to Levophed -target MAP > systolic blood pressures between 80s and 90s mmHg (patient and her son stated that the patient's normal systolic blood pressures range between 80s to 90s mmHg) -repeat lactic acid has normalized -continue vancomycin and Zosyn (renally dosed, started on 05/26/2022) -05/26/2022 blood cultures: Preliminary results are negative x2 -05/26/2022 urine cultures Obtained and pending (2) UTI (urinary tract infection): Code(s): N39.0 - Urinary tract infection, site not specified Status: Acute Assessment and Plan: UA reflective of UTI, patient started on Zosyn and vancomycin -urine cultures are pending (3) Acute kidney injury: Code(s): N17.9 - Acute kidney failure, unspecified Status: Acute Assessment and Plan: Patient presented with acute kidney injury, creatinine of 1.8 on admission (baseline creatinine 1.8-2.0 according to her son who is a physician) -could be related to infection, septic shock, UTI. Patient also takes bumetanide, carvedilol and metolazone at home -will obtain renal ultrasound -CK levels within normal limits, -urine lytes not reflective of prerenal picture -urine eosinophils negative -received adequate IV fluids, -started on clear diet -will continue to monitor urine, renal function and electrolytes (4) Fall: Code(s): W19.XXXA - Unspecified fall, initial encounter Status: Acute Assessment and Plan: Patient had a mechanical fall, hitting head, a right elbow has a right lower extremity -this could be possibly related to hypotension and septic shock -will obtain PT/ OT once patient is stable -05/27: Right lower extremity wound was seen once the bedside RN addressed it.? It is an L-shaped laceration which had Steri-Strips which did not approximate the wound due to hematoma under the skin.? I did get a curbside surgery consult, the wound cannot be approximated so would not be able to suture.? Recommended Omi homeostasis powder and Surgicel, wrap the wound tight enough to stop the bleeding. Appreciate Dr. Davis's input -bleeding has improved 05/26/2022: Chest x-ray did not show any pulmonary consolidation, pleural effusion or pneumothorax or pulmonary vascular congestion.? Multiple bilateral rib fracture deformities were noted, recent fractures not excluded.? Very prominent scoliosis of the thoracic and lumbar spine.? 05/27/2022: CT of the brain showed prominent left frontal cephalhematoma no skull fractures are acute intracranial bleeding, chronic right occipital infarct and chronic small vessel ischemic changes of the several white matter.? 05/27/2022: CT scan of the face and cervical spine showed left frontal cephalhematoma do facial fractures.? 05/27/2022: CT scan of the chest, abdomen/pelvis showed chronic T7-T8 and L1 fracture deformities.? Subtle subacute to old right rib fractures.? Old left rib fractures.? Cardiomegaly, cholelithiasis, cirrhosis.? (5) Atrial fibrillation: Code(s): I48.91 - Unspecified atrial fibrillation Status: Chronic Assessment and Plan: Patient has a history of atrial fibrillation, currently rate controlled -patient is on Eliquis at home, currently on hold due to right lower extremity laceration and bleeding, cephalhematoma of the forehead -Eliquis currently on hold (6) CHF (congestive heart failure): Code(s): I50.9 - Heart
[2022-05-28 08:11] LABS: Alanine Aminotransferase 18 U/L (6-35); Alkaline Phosphatase 118 U/L (38-126); Anion Gap 6 mmol/L (8-16); Aspartate Amino Transferase 21 U/L (14-36); Bilirubin,Total 1.3 mg/dL (0.2-1.3); Blood Urea Nitrogen 38 mg/dL (7-17); Calcium 7.9 mg/dL (8.4-10.2); Carbon Dioxide 24 mmol/L (22-30); Chloride 93 mmol/L (98-107); Estimated CRCL calculation 22 ml/min; Estimated Glomerular Filt Rate 31; Glucose 182 mg/dL (65-110); Potassium 3.1 mmol/L (3.4-5.0); Sodium 123 mmol/L (137-145)
[2022-05-28] MEDS: ALBUMIN HUMAN 25% 25 GM/100 ML 100 ML IVPB ×3 (08:52→17:04)
[2022-05-28] MEDS: LIDOCAINE 5% PATCH 2 PATCH TRANSDERM (08:53)
[2022-05-28] MEDS: PANTOPRAZOLE SODIUM IV 40 MG VIAL IV PUSH (08:53)
[2022-05-28 08:59] LABS: Magnesium 2.1 mg/dL (1.6-2.3)
[2022-05-28] MEDS: SODIUM CHLORIDE 500 MG TABLET PO ×2 (09:02→17:02)
[2022-05-28] MEDS: KCL 40 MEQ/WATER 100 ML 100 ML 25 ML IVPB (09:02)
[2022-05-28] MEDS: ACETAMINOPHEN 325 MG TABLET 650 MG PO ×2 (09:17→17:09)
[2022-05-28 11:39] LABS: Glucose Point of Care 218 mg/dl (65-105)
--- NOTE | 2022-05-28 14:16 | PM.IMPN ---
Progress Note: A&P Assessment and Plan (1) Septic shock: Code(s): A41.9 - Sepsis, unspecified organism; R65.21 - Severe sepsis with septic shock Status: Acute Assessment and Plan: Septic shock with leukocytosis, elevated lactic acid levels, acute renal failure, hypotension refractory to IV fluid boluses, -patient received total of 4 L IV fluid bolus -patient initially was started on Blaise-Synephrine per peripheral access in the ER as her son who is the physician wanted to hold off on the central line -patient did get a PICC line 05/27, Blaise-Synephrine was switched to Levophed -target MAP > systolic blood pressures between 80s and 90s mmHg (patient and her son stated that the patient's normal systolic blood pressures range between 80s to 90s mmHg) -repeat lactic acid has normalized -continue vancomycin and Zosyn (renally dosed, started on 05/26/2022) cx Obtained and pending (2) UTI (urinary tract infection): Code(s): N39.0 - Urinary tract infection, site not specified Status: Acute Assessment and Plan: UA reflective of UTI, patient started on Zosyn and vancomycin -urine cultures are pending (3) Acute kidney injury: Code(s): N17.9 - Acute kidney failure, unspecified Status: Acute Assessment and Plan: Patient presented with acute kidney injury, creatinine of 1.8 on admission (baseline creatinine 1.8-2.0 according to her son who is a physician) -could be related to infection, septic shock, UTI. Patient also takes bumetanide, carvedilol and metolazone at home -ultrasound ordered Continue to monitor (4) Fall: Code(s): W19.XXXA - Unspecified fall, initial encounter Status: Acute Assessment and Plan: Patient had a mechanical fall, hitting head, a right elbow has a right lower extremity -this could be possibly related to hypotension and septic shock -will obtain PT/ OT once patient is stable (5) Atrial fibrillation: Code(s): I48.91 - Unspecified atrial fibrillation Status: Chronic Assessment and Plan: Patient has a history of atrial fibrillation, currently rate controlled -patient is on Eliquis at home, currently on hold due to right lower extremity laceration and bleeding, cephalhematoma of the forehead -Eliquis currently on hold (6) CHF (congestive heart failure): Code(s): I50.9 - Heart failure, unspecified Status: Chronic Assessment and Plan: History of heart failure, on metolazone and Bumex at home -currently on hold due to hypotension and shock -05/27/2022 echocardiogram: LV dimension is normal, LV systolic function is normal estimated EF 65-70%. IV dimension is enlarged, by atrial dimensions are severely enlarged, there is moderate to severe tricuspid valve regurg 03/07/2021: Echocardiogram: LV chamber dimension is normal, LV systolic function estimated to be 55-60%. Severe biatrial dilatation trivial mitral valve regurg, mild tricuspid valve regurg, RV chamber dimension is normal, (7) Cirrhosis: Code(s): K74.60 - Unspecified cirrhosis of liver Status: Acute Assessment and Plan: CT scan of the abdomen and pelvis showed cirrhosis, LFTs are within normal limits -will continue to monitor (8) CVA (cerebral vascular accident): Code(s): I63.9 - Cerebral infarction, unspecified Status: Chronic Assessment and Plan: History of recent CVA recently on 04/13/2022 with the patient arrived with left upper extremity flaccidity and patient was transferred to [facility] (9) DM2 (diabetes mellitus, type 2): Code(s): E11.9 - Type 2 diabetes mellitus without complications Status: Chronic Assessment and Plan: Continue Accu-Cheks and sliding scale insulin Subjective Date/time seen: 05/28/22 14:16 No new complaints Exam Narrative: General: Very pleasant female, hard of hearing, in no acute distress HEENT:? Large hematoma on the bed and left side of the forehead, m
[2022-05-28 16:58] LABS: Glucose Point of Care 142 mg/dl (65-105)
[2022-05-28 20:56] LABS: Glucose Point of Care 212 mg/dl (65-105)
[2022-05-29] VITALS (84 sets, daily range): BP systolic 70–108; BP diastolic 42–76; PULSE 63–100; RESP 15–44; TEMP 36.4–36.7; O2SAT 29–100; BMI 32.3
[2022-05-29] MEDS: ALBUMIN HUMAN 25% 25 GM/100 ML 100 ML IVPB (00:15)
[2022-05-29] MEDS: CENTRAL LINE FLUSH 10 ML IV PUSH ×3 (04:30→20:45)
[2022-05-29 05:33] LABS: Basophils Absolute Auto 0.1 K/mm3 (0.0-0.1); Basophils Percent Auto 0.6 % (0.2-1.2); Eosinophils Absolute Auto 0.1 K/mm3 (0-0.3); Eosinophils Percent Auto 0.6 % (0-4.4); Hematocrit 26.7 % (37.0-47.0); Hemoglobin 8.7 g/dL (12.0-15.0); Immature Granulocyte Absolute 0.79 K/mm3 (0.00-0.031); Immature Granulocyte Percent A 4.6 % (0-0.5); Lymphocytes Absolute Auto 0.71 K/mm3 (0.9-3.2); Lymphocytes Percent Auto 4.1 % (18.3-44.2); Mean Corpuscular HGB Conc 32.6 g/dl (32-36); Mean Corpuscular Hemoglobin 29.2 pg (26-34); Mean Corpuscular Volume 89.6 fl (80-100); Mean Platelet Volume 11.4 fl (7.4-10.4); Monocytes Absolute Auto 1.3 K/mm3 (0.1-0.6); Monocytes Percent Auto 7.3 % (2.6-8.5); Neutrophils Absolute Auto 14.4 K/mm3 (1.3-6.7); Neutrophils Percent Auto 82.8 % (45.5-73.1); Nucleated Red Blood Cells Perc 0.2 % (0.0-0.2); Platelet Count Result 135 k/mm3 (150-375); Red Blood Count 2.98 M/mm3 (4.2-5.4); White Blood Count 17.4 K/mm3 (4.5-10.0)
[2022-05-29 05:54] LABS: Lactic Acid Reflex 1.7 mmol/L (0.7-2.0)
[2022-05-29 05:57] LABS: Alanine Aminotransferase 17 U/L (6-35); Albumin Level 3.9 g/dL (3.5-5.1); Alkaline Phosphatase 107 U/L (38-126); Anion Gap 11 mmol/L (8-16); Aspartate Amino Transferase 24 U/L (14-36); Blood Urea Nitrogen 37 mg/dL (7-17); Calcium 8.2 mg/dL (8.4-10.2); Carbon Dioxide 23 mmol/L (22-30); Chloride 86 mmol/L (98-107); Estimated CRCL calculation 21 ml/min; Estimated Glomerular Filt Rate 28; Glucose 200 mg/dL (65-110); Magnesium 1.9 mg/dL (1.6-2.3); Potassium 3.6 mmol/L (3.4-5.0); Sodium 120 mmol/L (137-145)
[2022-05-29 07:32] LABS: Glucose Point of Care 208 mg/dl (65-105)
[2022-05-29] MEDS: INSULIN ASPART (*BKC) 100 UNITS/ML SUB-Q ×2 (08:16→18:31)
[2022-05-29] MEDS: LIDOCAINE 5% PATCH 2 PATCH TRANSDERM ×2 (08:17→09:00)
[2022-05-29] MEDS: PANTOPRAZOLE SODIUM IV 40 MG VIAL IV PUSH (08:17)
[2022-05-29] MEDS: SODIUM CHLORIDE 500 MG TABLET PO ×2 (08:18→11:30)
[2022-05-29] MEDS: ONDANSETRON INJ 4 MG/2 ML VIAL IV PUSH (08:20)
[2022-05-29] MEDS: NOREPINEPHRINE 8 MG/D5W 250 ML 8 MG/250 ML BAG 16.88 MG IV CONT (10:00)
[2022-05-29 10:52] LABS: IFOB Positive Control Positive; Immunochemical Fecal Occult Bl Negative (N)
[2022-05-29] MEDS: NOREPINEPHRINE 8 MG/D5W 250 ML 8 MG/250 ML BAG 20.63 MG IV CONT (11:15)
[2022-05-29] MEDS: FLUCONAZOLE 100 MG/NACL 50 ML 100 MG/50 ML BTL 50 MG IVPB (11:30)
--- NOTE | 2022-05-29 11:52 | PM.IMPN ---
Progress Note: A&P Assessment and Plan (1) Septic shock: Code(s): A41.9 - Sepsis, unspecified organism; R65.21 - Severe sepsis with septic shock Status: Acute Assessment and Plan: Septic shock with leukocytosis, elevated lactic acid levels, acute renal failure, hypotension refractory to IV fluid boluses, -patient initially was started on Blaise-Synephrine per peripheral access in the ER as her son who is the physician wanted to hold off on the central line -pressors as needed -continue vancomycin and Zosyn (renally dosed, started on 05/26/2022) cx Obtained and pending (2) UTI (urinary tract infection): Code(s): N39.0 - Urinary tract infection, site not specified Status: Acute Assessment and Plan: UA reflective of UTI, patient started on Zosyn and vancomycin -urine cultures are pending (3) Acute kidney injury: Code(s): N17.9 - Acute kidney failure, unspecified Status: Acute Assessment and Plan: Patient presented with acute kidney injury, creatinine of 1.8 on admission (baseline creatinine 1.8-2.0 according to her son who is a physician) -creatinine days 1.7 (4) Fall: Code(s): W19.XXXA - Unspecified fall, initial encounter Status: Acute Assessment and Plan: Patient had a mechanical fall, hitting head, a right elbow has a right lower extremity -this could be possibly related to hypotension and septic shock -will obtain PT/ OT once patient is stable (5) Atrial fibrillation: Code(s): I48.91 - Unspecified atrial fibrillation Status: Chronic Assessment and Plan: Patient has a history of atrial fibrillation, currently rate controlled -patient is on Eliquis at home, currently on hold due to right lower extremity laceration and bleeding, cephalhematoma of the forehead -Eliquis currently on hold (6) CHF (congestive heart failure): Code(s): I50.9 - Heart failure, unspecified Status: Chronic Assessment and Plan: History of heart failure, on metolazone and Bumex at home -currently on hold due to hypotension and shock -05/27/2022 echocardiogram: LV dimension is normal, LV systolic function is normal estimated EF 65-70%. IV dimension is enlarged, by atrial dimensions are severely enlarged, there is moderate to severe tricuspid valve regurg 03/07/2021: Echocardiogram: LV chamber dimension is normal, LV systolic function estimated to be 55-60%. Severe biatrial dilatation trivial mitral valve regurg, mild tricuspid valve regurg, RV chamber dimension is normal, (7) Cirrhosis: Code(s): K74.60 - Unspecified cirrhosis of liver Status: Acute Assessment and Plan: CT scan of the abdomen and pelvis showed cirrhosis, LFTs are within normal limits -will continue to monitor (8) CVA (cerebral vascular accident): Code(s): I63.9 - Cerebral infarction, unspecified Status: Chronic Assessment and Plan: History of recent CVA recently on 04/13/2022 with the patient arrived with left upper extremity flaccidity and patient was transferred to [facility] (9) DM2 (diabetes mellitus, type 2): Code(s): E11.9 - Type 2 diabetes mellitus without complications Status: Chronic Assessment and Plan: Continue Accu-Cheks and sliding scale insulin (10) Hyponatremia: Code(s): E87.1 - Hypo-osmolality and hyponatremia Status: Acute Assessment and Plan: Urine studies ordered Plasma osmolality ordered nephrology consult Subjective Date/time seen: 05/29/22 11:52 No new complaints Exam Narrative: General: Very pleasant female, hard of hearing, in no acute distress HEENT:? Large hematoma on the bed and left side of the forehead, moist oral mucosa, pupils equal and reactive Neck:? Supple Respiratory:? Decreased breath sounds at bases, adequate air entry, no wheezing Cardiac:? Irregularly irregular, rate controlled Abdomen:? Soft, tender in bilateral lower quadrants, normoacti
[2022-05-29 12:13] LABS: Glucose Point of Care 132 mg/dl (65-105)
--- NOTE | 2022-05-29 13:01 | WPDINTPN ---
Progress Note: A&P Assessment and Plan (1) Septic shock: Code(s): A41.9 - Sepsis, unspecified organism; R65.21 - Severe sepsis with septic shock Status: Acute Assessment and Plan: Septic shock with leukocytosis, elevated lactic acid levels, acute renal failure, hypotension refractory to IV fluid boluses, -patient received total of 4 L IV fluid bolus -patient initially was started on Blaise-Synephrine per peripheral access in the ER as her son who is the physician wanted to hold off on the central line -patient did get a PICC line 05/27, Blaise-Synephrine was switched to Levophed -target MAP > systolic blood pressures between 90-100 mmHg (patient and her son stated that the patient's normal systolic blood pressures range between 90s mmHg) -repeat lactic acid has normalized -continue vancomycin and Zosyn (renally dosed, started on 05/26/2022) -05/26/2022 blood cultures: Preliminary results are negative x2 -05/26/2022 urine cultures: Negative -patient started to have diarrhea on 05/28/2022: C diff is negative, stool cultures have been obtained and pending - 05/29: Obstructive series -bowel gas pattern is nonobstructive, no renal stones identified, no acute abdominal abnormality -will start patient on low-dose midodrine which may help come off the Levophed (2) UTI (urinary tract infection): Code(s): N39.0 - Urinary tract infection, site not specified Status: Acute Assessment and Plan: UA reflective of UTI, patient continue n Zosyn and vancomycin -urine cultures are negative (3) Acute kidney injury: Code(s): N17.9 - Acute kidney failure, unspecified Status: Acute Assessment and Plan: Patient presented with acute kidney injury, creatinine of 1.8 on admission (baseline creatinine wound 0.6-1.8 according to her son who is a physician) -could be related to infection, septic shock, UTI. Patient also takes bumetanide, carvedilol and metolazone at home -05/28/2022 renal ultrasound with no evidence of hydronephrosis of either kidney -CK levels within normal limits, -urine lytes not reflective of prerenal picture -urine eosinophils negative -received adequate IV fluids, -will continue to monitor urine, renal function and electrolytes (4) Fall: Code(s): W19.XXXA - Unspecified fall, initial encounter Status: Acute Assessment and Plan: Patient had a mechanical fall, hitting head, a right elbow has a right lower extremity -this could be possibly related to hypotension and septic shock -will obtain PT/ OT once patient is stable -05/27: Right lower extremity wound was seen once the bedside RN addressed it.? It is an L-shaped laceration which had Steri-Strips which did not approximate the wound due to hematoma under the skin.? I did get a curbside surgery consult, the wound cannot be approximated so would not be able to suture.? Recommended Omi homeostasis powder and Surgicel, wrap the wound tight enough to stop the bleeding. Appreciate Dr. Davis's input -bleeding has improved -wound Care is following the patient 05/26/2022: Chest x-ray did not show any pulmonary consolidation, pleural effusion or pneumothorax or pulmonary vascular congestion.? Multiple bilateral rib fracture deformities were noted, recent fractures not excluded.? Very prominent scoliosis of the thoracic and lumbar spine.? 05/27/2022: CT of the brain showed prominent left frontal cephalhematoma no skull fractures are acute intracranial bleeding, chronic right occipital infarct and chronic small vessel ischemic changes of the several white matter.? 05/27/2022: CT scan of the face and cervical spine showed left frontal cephalhematoma do facial fractures.? 05/27/2022: CT scan of the chest, abdomen/pelvis showed chronic T7-T8 and L1 fracture deformities.? Subtle subacute to old right rib fractures.? Old left rib fractures.? Cardiomegaly, cholelithiasis, cirrhosis.? (5) Atrial fibrillation: Code(s): I48.91 - Unspecified atr
[2022-05-29] MEDS: MIDODRINE HCL 2.5 MG TABLET 5 MG PO ×2 (13:58→18:27)
[2022-05-29 14:37] LABS: Toxigenic C. Diff NEGATIVE (NEGATIVE)
[2022-05-29] MEDS: SILVERGEL (ELTA) 45 ML 1 APPLIC TOPICAL (15:37)
[2022-05-29 16:02] LABS: Glucose Point of Care 213 mg/dl (65-105)
[2022-05-29] MEDS: SODIUM CHLORIDE 1 GM TABLET PO (18:28)
[2022-05-29 22:10] LABS: Glucose Point of Care 104 mg/dl (65-105)
[2022-05-30] VITALS (86 sets, daily range): BP systolic 78–119; BP diastolic 49–77; PULSE 64–93; RESP 15–29; TEMP 36.4–37.1; O2SAT 89–100
[2022-05-30 02:08] LABS: Vancomycin Trough 18.8 ug/mL (10.0-20.0)
[2022-05-30 02:23] LABS: Sodium Urine Random < 5 meq/L
[2022-05-30] MEDS: VANCOMYCIN HCL 1,000 MG in SODIUM CHLORIDE 0.9% IV 250 ML 250 MG IVPB (02:43)
[2022-05-30 04:59] LABS: Basophils Absolute Auto 0.1 K/mm3 (0.0-0.1); Basophils Percent Auto 0.7 % (0.2-1.2); Eosinophils Absolute Auto 0.4 K/mm3 (0-0.3); Eosinophils Percent Auto 2.1 % (0-4.4); Hematocrit 26.4 % (37.0-47.0); Hemoglobin 8.8 g/dL (12.0-15.0); Immature Granulocyte Absolute 0.83 K/mm3 (0.00-0.031); Immature Platelet Fraction Pct 9.7 % (0.9-11.2); Lymphocytes Absolute Auto 1.45 K/mm3 (0.9-3.2); Lymphocytes Percent Auto 8.7 % (18.3-44.2); Mean Corpuscular HGB Conc 33.3 g/dl (32-36); Mean Corpuscular Hemoglobin 30.2 pg (26-34); Mean Corpuscular Volume 90.7 fl (80-100); Mean Platelet Volume 10.8 fl (7.4-10.4); Monocytes Absolute Auto 1.3 K/mm3 (0.1-0.6); Monocytes Percent Auto 7.7 % (2.6-8.5); Neutrophils Absolute Auto 12.7 K/mm3 (1.3-6.7); Neutrophils Percent Auto 75.8 % (45.5-73.1); Nucleated Red Blood Cells Perc 0.2 % (0.0-0.2); Platelet Count Result 159 k/mm3 (150-375); Red Blood Count 2.91 M/mm3 (4.2-5.4); Red Cell Distribution Width 18.3 % (11.5-14.5); White Blood Count 16.8 K/mm3 (4.5-10.0)
[2022-05-30 05:20] LABS: Anion Gap 9 mmol/L (8-16); Blood Urea Nitrogen 40 mg/dL (7-17); Calcium 8.1 mg/dL (8.4-10.2); Carbon Dioxide 24 mmol/L (22-30); Chloride 90 mmol/L (98-107); Estimated CRCL calculation 20 ml/min; Estimated Glomerular Filt Rate 27; Glucose 120 mg/dL (65-110); Potassium 3.8 mmol/L (3.4-5.0); Sodium 123 mmol/L (137-145)
[2022-05-30] MEDS: CENTRAL LINE FLUSH 10 ML IV PUSH ×3 (05:33→22:06)
[2022-05-30] MEDS: PANTOPRAZOLE SODIUM IV 40 MG VIAL IV PUSH (08:25)
[2022-05-30] MEDS: LIDOCAINE 5% PATCH 2 PATCH TRANSDERM (08:32)
[2022-05-30] MEDS: SODIUM CHLORIDE 0.9% IV 1,000 ML 999 ML IV CONT (08:36)
[2022-05-30] MEDS: ALBUMIN HUMAN 25% 25 GM/100 ML 100 ML IVPB ×3 (08:36→22:03)
[2022-05-30] MEDS: HYDROCORTISONE SODIUM SUCCINATE 100 MG/2 ML VIAL IV PUSH ×2 (08:39→17:14)
[2022-05-30] MEDS: MIDODRINE HCL 10 MG TABLET PO ×3 (08:39→17:15)
[2022-05-30] MEDS: SODIUM CHLORIDE 1 GM TABLET PO ×2 (08:39→18:00)
[2022-05-30] MEDS: SILVERGEL (ELTA) 45 ML 1 APPLIC TOPICAL (08:48)
[2022-05-30 09:31] LABS: Glucose Point of Care 103 mg/dl (65-105)
--- NOTE | 2022-05-30 09:31 | P.CONNP_ITS ---
Assessment and Plan Assessment and plan (1) Hyponatremia: Code(s): E87.1 - Hypo-osmolality and hyponatremia Status: Acute Assessment and Plan: * appears acute on chronic * baseline sodium seems to fluctuate ~ 126 - 133 (although has been as high as 136) * chronic component due to: * previous CVA * possible PPI use * thiazide diuretic (metolazone) * loop diuretics (bumex) * CHF * liver cirrhosis * CKD * chronic pain (from her old rib fractures) * acute component * recent fall * associated head trauma * D5W IVFs (used as carrier fluid) * oral/fluid intake limited (so need to fluid restrict) * follow-up on TSH, cortisol level, serum/urine osmo, and SPEP/UPEP * attempt to change all carrier fluid of IV meds/gtts/IVPB to normal saline * follow trend of repeat sodium levels (2) CKD (chronic kidney disease): Code(s): N18.9 - Chronic kidney disease, unspecified Status: Chronic Assessment and Plan: * relatively stable at this time * suspect some fluctuations due to fluctuating hemodynamics/sepsis * runs ~ 1.6 - 2.0mg/dl per family * 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 * probably from her HTN, DM, vascular disease, CHF + diuretics, and age-related change * aside from hyponatremia, stable electrolytes and making urine * follow trend of labs and UOP (3) Septic shock: Code(s): A41.9 - Sepsis, unspecified organism; R65.21 - Severe sepsis with septic shock Status: Acute Assessment and Plan: * as noted by elevated WBC, lactic acidosis, low BP unresponsive to IVFs * s/p 4L IVF resuscitation * on vasopressor therapy to maintain MAP * lactic acid normalized * follow culture data * so far culture negative to date * recent issues with diarrhea - C. diff toxin negative; stool studies pending * on antibiotic therapy (4) Atrial fibrillation: Code(s): I48.91 - Unspecified atrial fibrillation Status: Chronic Assessment and Plan: * rate controlled * off eliquis due to RLE wound/laceration and forehead hematoma (5) CHF (congestive heart failure): Code(s): I50.9 - Heart failure, unspecified Status: Chronic Assessment and Plan: * off diuretic therapy due to hypotension/shock and need for vasopressors * recent Echo noted * follow volume status and respiratory status closely (6) Fall: Code(s): W19.XXXA - Unspecified fall, initial encounter Status: Acute Assessment and Plan: * Patient had a mechanical fall * hit head, a right elbow, and right lower extremity * imaging studies noted with resultant injuries * local wound care * PT/OT when more stable (7) DM2 (diabetes mellitus, type 2): Code(s): E11.9 - Type 2 diabetes mellitus without complications Status: Chronic Assessment and Plan: * follow accuchecks * glycemic control Will continue to follow. History of Present Illness Reason for Consult Consult date: 05/30/22 Reason for consult: hyponatremia Chief Complaint Chief complaint: Sepsis, hypotension History of Present Illness Narrative: Most information I have obtained is from review of the electronic medical record as well as discussion with the physician/nurse is involved in her care as is difficult to get a full and complete history from the patient at this time. The patient is an 86-year-old female with extensive past medical history as outlined below who presented to [facility] for further evaluation after markus
--- NOTE | 2022-05-30 09:31 | PM.CNNEP ---
Assessment and Plan Assessment and plan (1) Hyponatremia: Code(s): E87.1 - Hypo-osmolality and hyponatremia Status: Acute Assessment and Plan: appears acute on chronic baseline sodium seems to fluctuate ~ 126 - 133 (although has been as high as 136) chronic component due to: previous CVA possible PPI use thiazide diuretic (metolazone) loop diuretics (bumex) CHF liver cirrhosis CKD chronic pain (from her old rib fractures) acute component recent fall associated head trauma D5W IVFs (used as carrier fluid) oral/fluid intake limited (so need to fluid restrict) follow-up on TSH, cortisol level, serum/urine osmo, and SPEP/UPEP attempt to change all carrier fluid of IV meds/gtts/IVPB to normal saline follow trend of repeat sodium levels (2) CKD (chronic kidney disease): Code(s): N18.9 - Chronic kidney disease, unspecified Status: Chronic Assessment and Plan: relatively stable at this time suspect some fluctuations due to fluctuating hemodynamics/sepsis runs ~ 1.6 - 2.0mg/dl per family 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 diff toxin negative; stool studies pending on antibiotic therapy (4) Atrial fibrillation: Code(s): I48.91 - Unspecified atrial fibrillation Status: Chronic Assessment and Plan: rate controlled off eliquis due to RLE wound/laceration and forehead hematoma (5) CHF (congestive heart failure): Code(s): I50.9 - Heart failure, unspecified Status: Chronic Assessment and Plan: off diuretic therapy due to hypotension/shock and need for vasopressors recent Echo noted follow volume status and respiratory status closely (6) Fall: Code(s): W19.XXXA - Unspecified fall, initial encounter Status: Acute Assessment and Plan: Patient had a mechanical fall hit head, a right elbow, and right lower extremity imaging studies noted with resultant injuries local wound care PT/OT when more stable (7) DM2 (diabetes mellitus, type 2): Code(s): E11.9 - Type 2 diabetes mellitus without complications Status: Chronic Assessment and Plan: follow accuchecks glycemic control Will continue to follow. History of Present Illness Reason for Consult Consult date: 05/30/22 Reason for consult: hyponatremia Chief Complaint Chief complaint: Sepsis, hypotension History of Present Illness Narrative: Most information I have obtained is from review of the electronic medical record as well as discussion with the physician/nurse is involved in her care as is difficult to get a full and complete history from the patient at this time. The patient is an 86-year-old female with extensive past medical history as outlined below who presented to [facility] Emergency Room for further evaluation after sustaining a fall at her nursing facility. Apparently, the patient had a mechanical fall on the day of admission but is not entirely clear how the fall occurred. She apparently woke up on the ground but did not appear to be any acute distress. She fell on the left side of her body sustaining injury to her left arm, left lower extremity, and left forehead. She had a very large right lower extremity laceration and a laceration to the right elbow along with what appeared to be a hematoma on her left forehead
--- NOTE | 2022-05-30 09:38 | WPDINTPN ---
Progress Note: A&P Assessment and Plan (1) Septic shock: Code(s): A41.9 - Sepsis, unspecified organism; R65.21 - Severe sepsis with septic shock Status: Acute Assessment and Plan: Septic shock with leukocytosis, elevated lactic acid levels, acute renal failure, hypotension refractory to IV fluid boluses, -patient received total of 4 L IV fluid bolus -patient initially was started on Blaise-Synephrine per peripheral access in the ER as her son who is the physician wanted to hold off on the central line -patient did get a PICC line 05/27, Blaise-Synephrine was switched to Levophed -target systolic blood pressures between 90-100 mmHg (patient and her son stated that the patient's normal systolic blood pressures range between 90s mmHg) -repeat lactic acid has normalized the patient continues to require low-dose Levophed -increase midodrine dose -will start stress dose hydrocortisone -will give 1 L of fluid bolus as patient may be having GI losses -continue Zosyn (renally dosed, started on 05/26/2022). Hold vancomycin -05/26/2022 blood cultures: Preliminary results are negative x2 -05/26/2022 urine cultures: Negative -patient started to have diarrhea on 05/28/2022: C diff is negative, stool cultures have been obtained and pending - 05/29: Obstructive series -bowel gas pattern is nonobstructive, no renal stones identified, no acute abdominal abnormality -no significant diarrhea overnight (2) UTI (urinary tract infection): Code(s): N39.0 - Urinary tract infection, site not specified Status: Acute Assessment and Plan: UA reflective of UTI, continue Zosyn -urine cultures are negative (3) Acute kidney injury: Code(s): N17.9 - Acute kidney failure, unspecified Status: Acute Assessment and Plan: Patient presented with acute kidney injury, creatinine of 1.8 on admission (baseline creatinine wound 0.6-1.8 according to her son who is a physician) -could be related to infection, septic shock, UTI. Patient also takes bumetanide, carvedilol and metolazone at home -05/28/2022 renal ultrasound with no evidence of hydronephrosis of either kidney -CK levels within normal limits, -urine lytes not reflective of prerenal picture -urine eosinophils negative -received adequate IV fluids, -creatinine remains at 1.8. Will give additional IV fluids today -will continue to monitor urine, renal function and electrolytes (4) Fall: Code(s): W19.XXXA - Unspecified fall, initial encounter Status: Acute Assessment and Plan: Patient had a mechanical fall, hitting head, a right elbow has a right lower extremity -this could be possibly related to hypotension and septic shock -will obtain PT/ OT once patient is off vasopressor -05/27: Right lower extremity wound was seen once the bedside RN addressed it.? It is an L-shaped laceration which had Steri-Strips which did not approximate the wound due to hematoma under the skin.? Dr. Sunshine did get a [place] emergency department surgery consult, the wound cannot be approximated so would not be able to suture.? Recommended Omi homeostasis powder and Surgicel, wrap the wound tight enough to stop the bleeding. -currently food is under dressing and wound Care is following the patient 05/26/2022: Chest x-ray did not show any pulmonary consolidation, pleural effusion or pneumothorax or pulmonary vascular congestion.? Multiple bilateral rib fracture deformities were noted, recent fractures not excluded.? Very prominent scoliosis of the thoracic and lumbar spine.? 05/27/2022: CT of the brain showed prominent left frontal cephalhematoma no skull fractures are acute intracranial bleeding, chronic right occipital infarct and chronic small vessel ischemic changes of the several white matter.? 05/27/2022: CT scan of the face and cervical spine showed left frontal cephalhematoma do facial fractures.? 05/27/2022: CT scan of the chest, abdomen/pelvis showed chronic T7-T8 and L1 fracture deformities.?
--- NOTE | 2022-05-30 11:44 | PCFNICU ---
ICU Rounding Note: Pt current nutrition is Diabetic with Ensure Compact BID and Ensure Protein Pudding BID. Last recorded weight is 82.1 kg. Bowel Motility: +BM reported 05/29 Labs Reviewed:Glu 120, BUN 40, Cr 1.8,Na 123, GFR 27 Meds Noted:Levophed, NovoLog,Protonix, Zosyn, Vancomycin. Skin: WNL Additional Notes: Patient remains on a CC diet, she did eat breakfast this morning. PO intake encouraged. Monitoring intakes, weights, labs, supplement tolerance, plan of care Follow daily in ICU, Reassess every 5 days.
--- NOTE | 2022-05-30 12:09 | P.CDI_ITS ---
CDI Query Clarified Diagnosis Clarified Diagnosis: Documented history of CHF. CHF noted on assessment and plan. Please specify type and acuity of heart failure if known. * Acute * Chronic * Acute on Chronic * Unknown * Systolic * Diastolic * Combined Systolic and Diastolic * Unknown
--- NOTE | 2022-05-30 12:09 | WPDCDIQUERY2 ---
CDI Query Clarified Diagnosis Clarified Diagnosis: Documented history of CHF. CHF noted on assessment and plan. Please specify type and acuity of heart failure if known. Acute Chronic Acute on Chronic Unknown Systolic Diastolic Combined Systolic and Diastolic Unknown
[2022-05-30] MEDS: FLUCONAZOLE 100 MG/NACL 50 ML 100 MG/50 ML BTL 50 MG IVPB (12:15)
[2022-05-30] MEDS: INSULIN ASPART (*BKC) 100 UNITS/ML SUB-Q ×3 (13:51→22:45)
[2022-05-30 16:56] LABS: Glucose Point of Care 276 mg/dl (65-105)
[2022-05-30 22:14] LABS: Glucose Point of Care 249 mg/dl (65-105)
[2022-05-31] VITALS (18 sets, daily range): BP systolic 84–132; BP diastolic 52–91; PULSE 62–71; RESP 16–25; TEMP 36.5–37.3; O2SAT 96–100
[2022-05-31] MEDS: HYDROCORTISONE SODIUM SUCCINATE 100 MG/2 ML VIAL IV PUSH ×3 (01:13→17:10)
[2022-05-31] MEDS: ALBUMIN HUMAN 25% 25 GM/100 ML 100 ML IVPB (02:17)
[2022-05-31 04:36] LABS: Hematocrit 22.6 % (37.0-47.0); Hemoglobin 7.6 g/dL (12.0-15.0); Mean Corpuscular HGB Conc 33.6 g/dl (32-36); Mean Corpuscular Hemoglobin 30.5 pg (26-34); Mean Corpuscular Volume 90.8 fl (80-100); Mean Platelet Volume 10.5 fl (7.4-10.4); Platelet Count Result 119 k/mm3 (150-375); Red Blood Count 2.49 M/mm3 (4.2-5.4); Red Cell Distribution Width 18.7 % (11.5-14.5); White Blood Count 15.5 K/mm3 (4.5-10.0)
[2022-05-31] MEDS: CENTRAL LINE FLUSH 10 ML IV PUSH ×3 (04:41→22:37)
[2022-05-31 05:01] LABS: Alanine Aminotransferase 38 U/L (6-35); Albumin Level 4.3 g/dL (3.5-5.1); Alkaline Phosphatase 147 U/L (38-126); Anion Gap 10 mmol/L (8-16); Aspartate Amino Transferase 56 U/L (14-36); Bilirubin,Total 0.9 mg/dL (0.2-1.3); Blood Urea Nitrogen 42 mg/dL (7-17); Calcium 8.2 mg/dL (8.4-10.2); Carbon Dioxide 23 mmol/L (22-30); Chloride 88 mmol/L (98-107); Estimated CRCL calculation 18 ml/min; Estimated Glomerular Filt Rate 22; Glucose 163 mg/dL (65-110); Phosphorus 3.3 mg/dL (2.5-4.5); Sodium 121 mmol/L (137-145)
[2022-05-31 07:09] LABS: Glucose Point of Care 284 mg/dl (65-105)
[2022-05-31 07:45] LABS: Creatine Kinase < 20 U/L (30-135)
--- NOTE | 2022-05-31 08:04 | WPDINTPN ---
Progress Note: A&P Assessment and Plan (1) Septic shock: Code(s): A41.9 - Sepsis, unspecified organism; R65.21 - Severe sepsis with septic shock Status: Acute Assessment and Plan: Septic shock with leukocytosis, elevated lactic acid levels, acute renal failure, hypotension refractory to IV fluid boluses, -patient received total of 4 L IV fluid bolus -patient initially was started on Blaise-Synephrine per peripheral access in the ER as her son who is the physician wanted to hold off on the central line -patient did get a PICC line 05/27, Blaise-Synephrine was switched to Levophed -05/26/2022 blood cultures: Preliminary results are negative x2 -05/26/2022 urine cultures: Negative -patient started to have diarrhea on 05/28/2022: C diff is negative, stool cultures have been obtained and pending - 05/29: Obstructive series -bowel gas pattern is nonobstructive, no renal stones identified, no acute abdominal abnormality -no significant diarrhea overnight -target systolic blood pressures between 90-100 mmHg (patient and her son stated that the patient's normal systolic blood pressures range between 90s mmHg) -repeat lactic acid has normalized the patient continues to require low-dose Levophed -05/30 midodrine dose was increased, added stress dose hydrocortisone and patient was given 1 L of fluid bolus as patient may be having GI losses -continue Zosyn (renally dosed, started on 05/26/2022). I will continue vancomycin due to large skin wound which is at risk of infection - 05/31 Levophed weaned off. Monitor (2) UTI (urinary tract infection): Code(s): N39.0 - Urinary tract infection, site not specified Status: Acute Assessment and Plan: UA reflective of UTI, continue Zosyn -urine cultures are negative (3) Acute kidney injury: Code(s): N17.9 - Acute kidney failure, unspecified Status: Acute Assessment and Plan: Patient presented with acute kidney injury, creatinine of 1.8 on admission (baseline creatinine wound 0.6-1.8 according to her son who is a physician) -could be related to infection, septic shock, UTI. Patient also takes bumetanide, carvedilol and metolazone at home which on hold -05/28/2022 renal ultrasound with no evidence of hydronephrosis of either kidney -CK levels within normal limits, -urine lytes not reflective of prerenal picture -urine eosinophils negative -patient received IV fluids earlier but further fluids were held due to concern for volume low due to patient's CHF history -creatinine increased to 2.1 today. Urine output remains low. I have Will give additional IV fluids today -will continue to monitor urine, renal function and electrolytes -consult nephrology (4) Fall: Code(s): W19.XXXA - Unspecified fall, initial encounter Status: Acute Assessment and Plan: Patient had a mechanical fall, hitting head, a right elbow has a right lower extremity -this could be possibly related to hypotension and septic shock -will obtain PT/ OT once patient is off vasopressor -05/27: Right lower extremity wound was seen once the bedside RN addressed it.? It is an L-shaped laceration which had Steri-Strips which did not approximate the wound due to hematoma under the skin.? Dr. Sunshine did get a curbside surgery consult, the wound cannot be approximated so would not be able to suture.? Recommended Omi homeostasis powder and Surgicel, wrap the wound tight enough to stop the bleeding. Patient's right leg wound was examined and appears covered with black surgicell. There is a blister on the medial side filled with fluid. Patient is tender in the area no significant redness or rhythm a seen surrounding it. Continue vancomycin. Will discuss with wound care 05/26/2022: Chest x-ray did not show any pulmonary consolidation, pleural effusion or pneumothorax or pulmonary vascular congestion.? Multiple bilateral rib fracture deformities were noted, recent fractures not excluded.? Very pro
[2022-05-31] MEDS: SODIUM CHLORIDE 0.9% IV 500 ML IV CONT (08:28)
--- NOTE | 2022-05-31 09:59 | P.PNNP_ITS ---
Progress Note: A&P Assessment and Plan (1) Hyponatremia: Code(s): E87.1 - Hypo-osmolality and hyponatremia Status: Acute Assessment and Plan: * appears acute on chronic * baseline sodium seems to fluctuate ~ 126 - 133 (although has been as high as 136) * chronic component due to: * previous CVA * possible PPI use * thiazide diuretic (metolazone) * loop diuretics (bumex) * CHF * liver cirrhosis * CKD * chronic pain (from her old rib fractures) * acute component * recent fall * associated head trauma * D5W IVFs (used as carrier fluid) * oral/fluid intake limited (so need to fluid restrict) * evaluation to date: * TSH and cortisol okay * most recent urine electrolytes look prerenal * serum/urine osmo, and SPEP/UPEP pending * changed all carrier fluid of IV meds/gtts/IVPB to normal saline * noted initiation of salt tablets * follow trend of repeat sodium levels (2) CKD (chronic kidney disease): Code(s): N18.9 - Chronic kidney disease, unspecified Status: Chronic Assessment and Plan: * relatively stable at this time * suspect some fluctuations due to fluctuating hemodynamics/sepsis * runs ~ 1.6 - 2.0mg/dl per family * 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 * probably from her HTN, DM, vascular disease, CHF + diuretics, and age-related change * aside from hyponatremia, stable electrolytes but urine output dropping * follow trend of labs and UOP (3) Septic shock: Code(s): A41.9 - Sepsis, unspecified organism; R65.21 - Severe sepsis with septic shock Status: Acute Assessment and Plan: * as noted by elevated WBC, lactic acidosis, low BP unresponsive to IVFs * s/p 4L IVF resuscitation * was on vasopressor therapy to maintain MAP -- now off * lactic acid normalized * follow culture data * so far culture negative to date * recent issues with diarrhea - C. diff toxin negative; stool studies pending * on antibiotic therapy (4) Atrial fibrillation: Code(s): I48.91 - Unspecified atrial fibrillation Status: Chronic Assessment and Plan: * rate controlled * off eliquis due to RLE wound/laceration and forehead hematoma (5) CHF (congestive heart failure): Code(s): I50.9 - Heart failure, unspecified Status: Chronic Assessment and Plan: * off diuretic therapy due to hypotension/shock and need for vasopressors * recent Echo noted * follow volume status and respiratory status closely (6) Fall: Code(s): W19.XXXA - Unspecified fall, initial encounter Status: Acute Assessment and Plan: * Patient had a mechanical fall * hit head, a right elbow, and right lower extremity * imaging studies noted with resultant injuries * local wound care * PT/OT when more stable (7) DM2 (diabetes mellitus, type 2): Code(s): E11.9 - Type 2 diabetes mellitus without complications Status: Chronic Assessment and Plan: * follow accuchecks * glycemic control Will continue to follow. Subjective Date/time seen: 05/31/22 09:59 Weaned off levophed earlier today with relatively stable hemodynamics at this time; she seems to be eating/drnking a bit better but urine output appears to have declined; no apparent distress noted at this time. Exam Narrative: General: elderly female in NAD but [place] Heart: IRRR, normal S1 and S2; no rub Lungs: decreased at bases Abdomen: soft, nontender, nondistended, positive bowel sounds E
--- NOTE | 2022-05-31 09:59 | PM.PNNEP ---
Progress Note: A&P Assessment and Plan (1) Hyponatremia: Code(s): E87.1 - Hypo-osmolality and hyponatremia Status: Acute Assessment and Plan: appears acute on chronic baseline sodium seems to fluctuate ~ 126 - 133 (although has been as high as 136) chronic component due to: previous CVA possible PPI use thiazide diuretic (metolazone) loop diuretics (bumex) CHF liver cirrhosis CKD chronic pain (from her old rib fractures) acute component recent fall associated head trauma D5W IVFs (used as carrier fluid) oral/fluid intake limited (so need to fluid restrict) evaluation to date: TSH and cortisol okay most recent urine electrolytes look prerenal serum/urine osmo, and SPEP/UPEP pending changed all carrier fluid of IV meds/gtts/IVPB to normal saline noted initiation of salt tablets follow trend of repeat sodium levels (2) CKD (chronic kidney disease): Code(s): N18.9 - Chronic kidney disease, unspecified Status: Chronic Assessment and Plan: relatively stable at this time suspect some fluctuations due to fluctuating hemodynamics/sepsis runs ~ 1.6 - 2.0mg/dl per family 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 diff toxin negative; stool studies pending on antibiotic therapy (4) Atrial fibrillation: Code(s): I48.91 - Unspecified atrial fibrillation Status: Chronic Assessment and Plan: rate controlled off eliquis due to RLE wound/laceration and forehead hematoma (5) CHF (congestive heart failure): Code(s): I50.9 - Heart failure, unspecified Status: Chronic Assessment and Plan: off diuretic therapy due to hypotension/shock and need for vasopressors recent Echo noted follow volume status and respiratory status closely (6) Fall: Code(s): W19.XXXA - Unspecified fall, initial encounter Status: Acute Assessment and Plan: Patient had a mechanical fall hit head, a right elbow, and right lower extremity imaging studies noted with resultant injuries local wound care PT/OT when more stable (7) DM2 (diabetes mellitus, type 2): Code(s): E11.9 - Type 2 diabetes mellitus without complications Status: Chronic Assessment and Plan: follow accuchecks glycemic control Will continue to follow. Subjective Date/time seen: 05/31/22 09:59 Weaned off levophed earlier today with relatively stable hemodynamics at this time; she seems to be eating/drnking a bit better but urine output appears to have declined; no apparent distress noted at this time. Exam Narrative: General: elderly female in NAD but [place] Heart: IRRR, normal S1 and S2; no rub Lungs: decreased at bases Abdomen: soft, nontender, nondistended, positive bowel sounds Extremities: no cyanosis or clubbing; no edema Skin: bruising/wound noted at right elbow, right LE, and right forehead Objective Data Vital Signs Vital Signs: Vital Signs Temp Pulse Resp BP Pulse Ox O2 Del Method O2 Flow Rate 05/31/22 09:34 68 21 H 90/72 L 99 05/31/22 08:00 98.1 F 66 20 84/57 L 98 05/30/22 20:43 99 Nasal Cannula 2 05/31/22 06:09 98/61 L 05/31/22 06:00 66 18 98/61 L 99 05/31/22 06:00 66 05/31/22 03:00 107/68 05/31/22 04:00 63 22 H 99 Nasal Cannula
[2022-05-31 10:03] LABS: Glucose Point of Care 170 mg/dl (65-105)
[2022-05-31] MEDS: FLUCONAZOLE 100 MG/NACL 50 ML 100 MG/50 ML BTL 50 MG IVPB (10:09)
[2022-05-31] MEDS: MIDODRINE HCL 10 MG TABLET PO ×3 (10:10→17:10)
[2022-05-31] MEDS: LIDOCAINE 5% PATCH 2 PATCH TRANSDERM (10:17)
[2022-05-31] MEDS: SODIUM CHLORIDE 1 GM TABLET PO ×2 (10:27→17:11)
[2022-05-31] MEDS: PANTOPRAZOLE 40 MG TABLET PO (10:27)
[2022-05-31] MEDS: VANCOMYCIN HCL 750 MG in SODIUM CHLORIDE 0.9% IV 250 ML 250 MG IVPB (10:29)
[2022-05-31] MEDS: INSULIN ASPART (*BKC) 100 UNITS/ML SUB-Q ×2 (11:52→21:32)
[2022-05-31] MEDS: INSULIN GLARGINE (*BKC) 100 UNITS/ML 10 UNITS SUB-Q (11:52)
--- NOTE | 2022-05-31 11:57 | PCFNICU ---
ICU Rounding Note: Pt current nutrition is DBCC with Ensure Compact and Ensure High Protein Pudding. Last recorded weight is 83.3 kg. Bowel Motility:+BM reported 05/30 Labs Reviewed:BUN 42, Cr 2.10,Glu 163,Na 121 Meds Noted:NovoLog, Protonix, Vancomycin,Zosyn Skin: WNL Additional Notes: Patient seen today for nutrition follow up. Patient remains on DBCC diet. Oral Intake improving 10-75% of most meals. Agree with diet supplements. Following daily in ICU rounds. Monitoring intakes, weights, labs, supplement tolerance, plan of care reassess every 5 days.
[2022-05-31] MEDS: SILVERGEL (ELTA) 45 ML 1 APPLIC TOPICAL (11:58)
[2022-05-31 12:00] LABS: Glucose Point of Care 265 mg/dl (65-105)
--- NOTE | 2022-05-31 15:52 | PM.IMPN ---
Progress Note: A&P Assessment and Plan (1) Septic shock: Code(s): A41.9 - Sepsis, unspecified organism; R65.21 - Severe sepsis with septic shock Status: Acute Assessment and Plan: Septic shock with leukocytosis, elevated lactic acid levels, acute renal failure, hypotension refractory to IV fluid boluses, -patient initially was started on Blaise-Synephrine per peripheral access in the ER as her son who is the physician wanted to hold off on the central line -pressors as needed -continue vancomycin and Zosyn (renally dosed, started on 05/26/2022) cx Obtained and pending 05/31/2022 interval history 86-year-old female with septic shock was on pressor now her symptoms have improved and patient is off Levophed concerning for UTI so far urine and blood cultures are negative, patient has developed diarrhea and stool culture is ordered, currently patient complains of generalized pain and body aches, patient with history diabetes will start the patient on gabapentin 100 mg t.i.d., will continue to monitor, 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 (2) UTI (urinary tract infection): Code(s): N39.0 - Urinary tract infection, site not specified Status: Acute Assessment and Plan: UA reflective of UTI, patient started on Zosyn and vancomycin -urine cultures are pending (3) Acute kidney injury: Code(s): N17.9 - Acute kidney failure, unspecified Status: Acute Assessment and Plan: Patient presented with acute kidney injury, creatinine of 1.8 on admission (baseline creatinine 1.8-2.0 according to her son who is a physician) -creatinine days 1.7 (4) Fall: Code(s): W19.XXXA - Unspecified fall, initial encounter Status: Acute Assessment and Plan: Patient had a mechanical fall, hitting head, a right elbow has a right lower extremity -this could be possibly related to hypotension and septic shock -will obtain PT/ OT once patient is stable (5) Atrial fibrillation: Code(s): I48.91 - Unspecified atrial fibrillation Status: Chronic Assessment and Plan: Patient has a history of atrial fibrillation, currently rate controlled -patient is on Eliquis at home, currently on hold due to right lower extremity laceration and bleeding, cephalhematoma of the forehead -Eliquis currently on hold (6) CHF (congestive heart failure): Code(s): I50.9 - Heart failure, unspecified Status: Chronic Assessment and Plan: History of heart failure, on metolazone and Bumex at home -currently on hold due to hypotension and shock -05/27/2022 echocardiogram: LV dimension is normal, LV systolic function is normal estimated EF 65-70%. IV dimension is enlarged, by atrial dimensions are severely enlarged, there is moderate to severe tricuspid valve regurg 03/07/2021: Echocardiogram: LV chamber dimension is normal, LV systolic function estimated to be 55-60%. Severe biatrial dilatation trivial mitral valve regurg, mild tricuspid valve regurg, RV chamber dimension is normal, (7) Cirrhosis: Code(s): K74.60 - Unspecified cirrhosis of liver Status: Acute Assessment and Plan: CT scan of the abdomen and pelvis showed cirrhosis, LFTs are within normal limits -will continue to monitor (8) CVA (cerebral vascular accident): Code(s): I63.9 - Cerebral infarction, unspecified Status: Chronic Assessment and Plan: History of recent CVA recently on 04/13/2022 with the patient arrived with left upper extremity flaccidity and patient was transferred to [facility] (9) DM2 (diabetes mellitus, type 2): Code(s): E11.9 - Type 2 diabetes mellitus without complications Status: Chronic Assessment and Plan: Continue Accu-Cheks and sliding scale insulin (10) Hyponatremia: Code(s): E87.1 - Hypo-osmolality and hyponatremia Status: Acute Assessment and Plan: Urine studies ordered Plasma osmolality order
[2022-05-31] MEDS: GABAPENTIN 100 MG CAPSULE PO (17:09)
[2022-05-31] MEDS: ACETAMINOPHEN 325 MG TABLET 650 MG PO (17:21)
[2022-05-31 21:33] LABS: Glucose Point of Care 274 mg/dl (65-105)
[2022-06-01] VITALS (13 sets, daily range): BP systolic 104–141; BP diastolic 54–99; PULSE 61–72; RESP 14–28; TEMP 36.1–37.3; O2SAT 93–99
[2022-06-01] MEDS: HYDROCORTISONE SODIUM SUCCINATE 100 MG/2 ML VIAL IV PUSH ×2 (01:16→08:47)
[2022-06-01 05:56] LABS: Hematocrit 21.7 % (37.0-47.0); Mean Corpuscular HGB Conc 31.3 g/dl (32-36); Mean Corpuscular Hemoglobin 29.1 pg (26-34); Mean Corpuscular Volume 92.7 fl (80-100); Platelet Count Result 124 k/mm3 (150-375); Red Blood Count 2.34 M/mm3 (4.2-5.4); Red Cell Distribution Width 18.7 % (11.5-14.5); White Blood Count 13.9 K/mm3 (4.5-10.0)
[2022-06-01 06:08] LABS: Hemoglobin 6.8 g/dL (12.0-15.0)
[2022-06-01 06:14] LABS: Alanine Aminotransferase 34 U/L (6-35); Albumin Level 3.2 g/dL (3.5-5.1); Alkaline Phosphatase 139 U/L (38-126); Anion Gap 8 mmol/L (8-16); Aspartate Amino Transferase 34 U/L (14-36); Bilirubin,Total 0.6 mg/dL (0.2-1.3); Blood Urea Nitrogen 42 mg/dL (7-17); Calcium 6.7 mg/dL (8.4-10.2); Carbon Dioxide 18 mmol/L (22-30); Chloride 99 mmol/L (98-107); Estimated CRCL calculation 17 ml/min; Estimated Glomerular Filt Rate 21; Glucose 175 mg/dL (65-110); Magnesium 1.7 mg/dL (1.6-2.3); Phosphorus 3.2 mg/dL (2.5-4.5); Potassium 3.6 mmol/L (3.4-5.0); Sodium 125 mmol/L (137-145)
--- NOTE | 2022-06-01 06:31 | PC.NURSE ---
Message left with son for blood consent
[2022-06-01 08:23] LABS: Basophils Percent Auto 0.2 % (0.2-1.2); Eosinophils Percent Auto 0.1 % (0-4.4); Hematocrit 24.2 % (37.0-47.0); Hemoglobin 8.1 g/dL (12.0-15.0); Immature Granulocyte Absolute 0.64 K/mm3 (0.00-0.031); Immature Granulocyte Percent A 4.3 % (0-0.5); Immature Reticulocyte Fraction 42.7 % (3.0-15.9); Lymphocytes Absolute Auto 0.43 K/mm3 (0.9-3.2); Lymphocytes Percent Auto 2.9 % (18.3-44.2); Mean Corpuscular HGB Conc 33.5 g/dl (32-36); Mean Corpuscular Hemoglobin 30.7 pg (26-34); Mean Corpuscular Volume 91.7 fl (80-100); Mean Platelet Volume 10.3 fl (7.4-10.4); Monocytes Absolute Auto 0.7 K/mm3 (0.1-0.6); Monocytes Percent Auto 4.6 % (2.6-8.5); Neutrophils Absolute Auto 13.3 K/mm3 (1.3-6.7); Neutrophils Percent Auto 87.9 % (45.5-73.1); Nucleated Red Blood Cells Absolute Auto 0.1 K/mm3 (0.0-0.012); Nucleated Red Blood Cells Perc 0.4 % (0.0-0.2); Platelet Count Result 131 k/mm3 (150-375); Red Blood Count 2.64 M/mm3 (4.2-5.4); Red Cell Distribution Width 19.1 % (11.5-14.5); Reticulocyte Percent 3.57 % (0.7-4.3); White Blood Count 15.1 K/mm3 (4.5-10.0)
[2022-06-01] MEDS: INSULIN ASPART (*BKC) 100 UNITS/ML SUB-Q (08:27)
[2022-06-01] MEDS: CENTRAL LINE FLUSH 10 ML IV PUSH ×3 (08:27→21:05)
[2022-06-01] MEDS: INSULIN GLARGINE (*BKC) 100 UNITS/ML 15 UNITS SUB-Q (08:28)
[2022-06-01] MEDS: CEFDINIR 300 MG CAPSULE PO ×2 (08:34→20:07)
[2022-06-01] MEDS: CALCIUM GLUC 2,000 MG/NS 100ML 2,000 MG/100 ML BAG 100 MG IVPB (08:35)
[2022-06-01] MEDS: MAGNESIUM SULF 2 GM/WATER 50ML 2 GM/50 ML BAG IVPB (08:38)
--- NOTE | 2022-06-01 08:41 | WPDINTPN ---
Progress Note: A&P Assessment and Plan (1) Septic shock: Code(s): A41.9 - Sepsis, unspecified organism; R65.21 - Severe sepsis with septic shock Status: Acute Assessment and Plan: Septic shock with leukocytosis, elevated lactic acid levels, acute renal failure, hypotension refractory to IV fluid boluses, -patient received total of 4 L IV fluid bolus -patient initially was started on Blaise-Synephrine per peripheral access in the ER as her son who is the physician wanted to hold off on the central line -patient did get a PICC line 05/27, Blaise-Synephrine was switched to Levophed -05/26/2022 blood cultures: Preliminary results are negative x2 -05/26/2022 urine cultures: Negative -patient started to have diarrhea on 05/28/2022: C diff is negative, stool cultures have been obtained and pending - 05/29: Obstructive series -bowel gas pattern is nonobstructive, no renal stones identified, no acute abdominal abnormality -no significant diarrhea overnight -target systolic blood pressures between 90-100 mmHg (patient and her son stated that the patient's normal systolic blood pressures range between 90s mmHg) -repeat lactic acid has normalized the patient continues to require low-dose Levophed -05/30 midodrine dose was increased, added stress dose hydrocortisone and patient was given 1 L of fluid bolus as patient may be having GI losses -change vancomycin and Zosyn to p.o. Omnicef - 05/31 Levophed weaned off. - 06/01 Wean down steroids. Continue midodrine (2) UTI (urinary tract infection): Code(s): N39.0 - Urinary tract infection, site not specified Status: Acute Assessment and Plan: UA reflective of UTI, continue Zosyn -urine cultures are negative (3) Acute kidney injury: Code(s): N17.9 - Acute kidney failure, unspecified Status: Acute Assessment and Plan: Patient presented with acute kidney injury, creatinine of 1.8 on admission (baseline creatinine wound 0.6-1.8 according to her son who is a physician) -could be related to infection, septic shock, UTI. Patient also takes bumetanide, carvedilol and metolazone at home which on hold -05/28/2022 renal ultrasound with no evidence of hydronephrosis of either kidney -CK levels within normal limits, -urine lytes not reflective of prerenal picture -urine eosinophils negative -patient received IV fluids earlier but further fluids were held due to concern for volume low due to patient's CHF history -creatinine increased to 2.2 today. Urine output remains low. She is getting PRBC today -will continue to monitor urine, renal function and electrolytes -nephrology following (4) Fall: Code(s): W19.XXXA - Unspecified fall, initial encounter Status: Acute Assessment and Plan: Patient had a mechanical fall, hitting head, a right elbow has a right lower extremity -this could be possibly related to hypotension and septic shock -will obtain PT/ OT once patient is off vasopressor -05/27: Right lower extremity wound was seen once the bedside RN addressed it.? It is an L-shaped laceration which had Steri-Strips which did not approximate the wound due to hematoma under the skin.? Dr. Sunshine did get a curbside surgery consult, the wound cannot be approximated so would not be able to suture.? Recommended Omi homeostasis powder and Surgicel, wrap the wound tight enough to stop the bleeding. 06/01 Patient's right leg wound was examined yesterday. Does not appear infected. Continue wound care. 05/26/2022: Chest x-ray did not show any pulmonary consolidation, pleural effusion or pneumothorax or pulmonary vascular congestion.? Multiple bilateral rib fracture deformities were noted, recent fractures not excluded.? Very prominent scoliosis of the thoracic and lumbar spine.? 05/27/2022: CT of the brain showed prominent left frontal cephalhematoma no skull fractures are acute intracranial bleeding, chronic right occipital infarct and chronic small vessel isch
[2022-06-01] MEDS: MIDODRINE HCL 10 MG TABLET PO ×3 (08:44→17:04)
[2022-06-01] MEDS: SILVERGEL (ELTA) 45 ML 1 APPLIC TOPICAL (08:44)
[2022-06-01] MEDS: GABAPENTIN 100 MG CAPSULE PO ×3 (08:44→17:03)
[2022-06-01] MEDS: POTASSIUM CHLORIDE 20 MEQ PACKET (FOR LIQUID) 40 MEQ PO (08:44)
--- NOTE | 2022-06-01 08:44 | PCOTNOTE ---
Attempted OT evaluation, RN in patient's room currently and requested therapy to return at later time. Will follow.
[2022-06-01] MEDS: SODIUM CHLORIDE 1 GM TABLET PO ×2 (08:47→17:04)
[2022-06-01] MEDS: PANTOPRAZOLE 40 MG TABLET PO (08:47)
[2022-06-01 08:48] LABS: Lactate Dehydrogenase 148 U/L (120-246)
[2022-06-01] MEDS: FLUCONAZOLE 100 MG/NACL 50 ML 100 MG/50 ML BTL 50 MG IVPB (08:58)
[2022-06-01 09:03] LABS: Iron 37 ug/dL (37-170)
[2022-06-01 09:05] LABS: Glucose Point of Care 201 mg/dl (65-105)
[2022-06-01 09:18] LABS: Percent Iron Saturation 14 % (20-50)
[2022-06-01 09:47] LABS: Folic Acid 9.2 ng/mL (2.76->20)
--- NOTE | 2022-06-01 10:11 | PCFNICU ---
ICU Rounding Note: Pt current nutrition is Diabetic consistent carb, Ensure compact and ensure pudding BID. Nutrition recommendation: continue with current plan of care. Last recorded weight is 85.6 kg. Bowel Motility: +BM 05/30 Labs Reviewed: Hgb:8.1, HCT:24.2, Alb:3.2, NA:125, GFR:21, BUN:42, Cr:22, Glu:175 Meds Noted: novolog, protonix Skin: WNL Additional Notes: Pt continues on a diabetic diet, intake reduced today to 10% of meals, nursing reports pt has poor appetite. Supplements ordered and on tray. Agree with diet orders, encourage intake of meals and supplements. Following daily in ICU rounds. Monitoring intakes, weights, labs, supplement tolerance, plan of care Follow daily in ICU, Reassess every 5 days.
--- NOTE | 2022-06-01 10:48 | PCOTNOTE ---
Attempted OT evaluation, patient declined to get out of bed at this time despite education and encouragement on benefits of participating with therapy. Will follow.
--- NOTE | 2022-06-01 12:11 | PM.PNNEP ---
Progress Note: A&P Assessment and Plan (1) Hyponatremia: Code(s): E87.1 - Hypo-osmolality and hyponatremia Status: Acute Assessment and Plan: appears acute on chronic baseline sodium seems to fluctuate ~ 126 - 133 (although has been as high as 136) chronic component due to: previous CVA possible PPI use thiazide diuretic (metolazone) loop diuretics (bumex) CHF liver cirrhosis CKD chronic pain (from her old rib fractures) acute component recent fall associated head trauma D5W IVFs (used as carrier fluid) oral/fluid intake limited (so need to fluid restrict) evaluation to date: TSH and cortisol okay most recent urine electrolytes look prerenal serum/urine osmo, and SPEP/UPEP pending changed all carrier fluid of IV meds/gtts/IVPB to normal saline on salt tablets follow trend of repeat sodium levels (2) CKD (chronic kidney disease): Code(s): N18.9 - Chronic kidney disease, unspecified Status: Chronic Assessment and Plan: relatively stable at this time suspect some fluctuations due to fluctuating hemodynamics/sepsis runs ~ 1.6 - 2.0mg/dl per family 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 diff toxin negative; stool studies pending on antibiotic therapy (4) Atrial fibrillation: Code(s): I48.91 - Unspecified atrial fibrillation Status: Chronic Assessment and Plan: rate controlled off eliquis due to RLE wound/laceration and forehead hematoma (5) CHF (congestive heart failure): Code(s): I50.9 - Heart failure, unspecified Status: Chronic Assessment and Plan: off diuretic therapy due to hypotension/shock and need for vasopressors recent Echo noted follow volume status and respiratory status closely (6) Fall: Code(s): W19.XXXA - Unspecified fall, initial encounter Status: Acute Assessment and Plan: Patient had a mechanical fall hit head, a right elbow, and right lower extremity imaging studies noted with resultant injuries local wound care PT/OT when more stable (7) DM2 (diabetes mellitus, type 2): Code(s): E11.9 - Type 2 diabetes mellitus without complications Status: Chronic Assessment and Plan: follow accuchecks glycemic control Will continue to follow. Subjective Date/time seen: 06/01/22 12:11 She continues to complain all over her body presumably secondary to laying in bed for several days; no other acute issues/problems voiced at this time; urine output continues to decline in the last few days despite interventions to date. Exam Narrative: General: elderly female in NAD but [place] Heart: IRRR, normal S1 and S2; no rub Lungs: decreased at bases Abdomen: soft, nontender, nondistended, positive bowel sounds Extremities: no cyanosis or clubbing; no edema Skin: bruising/wound noted at right elbow, right LE, and right forehead Objective Data Vital Signs Vital Signs: Vital Signs Temp Pulse Resp BP Pulse Ox O2 Del Method O2 Flow Rate 06/01/22 08:00 70 21 H 98 Nasal Cannula 3 06/01/22 10:00 64 20 121/80 98 06/01/22 10:00 64 06/01/22 08:00 98.4 F 70 21 H 130/73 97 06/01/22 08:00 70 06/01/22 04:00 98 Nasal Cannula 3 06/01/22 05:28 72 20 128/84 96 06/01/22 05:28 72
--- NOTE | 2022-06-01 12:11 | P.PNNP_ITS ---
Progress Note: A&P Assessment and Plan (1) Hyponatremia: Code(s): E87.1 - Hypo-osmolality and hyponatremia Status: Acute Assessment and Plan: * appears acute on chronic * baseline sodium seems to fluctuate ~ 126 - 133 (although has been as high as 136) * chronic component due to: * previous CVA * possible PPI use * thiazide diuretic (metolazone) * loop diuretics (bumex) * CHF * liver cirrhosis * CKD * chronic pain (from her old rib fractures) * acute component * recent fall * associated head trauma * D5W IVFs (used as carrier fluid) * oral/fluid intake limited (so need to fluid restrict) * evaluation to date: * TSH and cortisol okay * most recent urine electrolytes look prerenal * serum/urine osmo, and SPEP/UPEP pending * changed all carrier fluid of IV meds/gtts/IVPB to normal saline * on salt tablets * follow trend of repeat sodium levels (2) CKD (chronic kidney disease): Code(s): N18.9 - Chronic kidney disease, unspecified Status: Chronic Assessment and Plan: * relatively stable at this time * suspect some fluctuations due to fluctuating hemodynamics/sepsis * runs ~ 1.6 - 2.0mg/dl per family * 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 * probably from her HTN, DM, vascular disease, CHF + diuretics, and age-related change * aside from hyponatremia, stable electrolytes but urine output dropping * follow trend of labs and UOP (3) Septic shock: Code(s): A41.9 - Sepsis, unspecified organism; R65.21 - Severe sepsis with septic shock Status: Acute Assessment and Plan: * as noted by elevated WBC, lactic acidosis, low BP unresponsive to IVFs * s/p 4L IVF resuscitation * was on vasopressor therapy to maintain MAP -- now off * lactic acid normalized * follow culture data * so far culture negative to date * recent issues with diarrhea - C. diff toxin negative; stool studies pending * on antibiotic therapy (4) Atrial fibrillation: Code(s): I48.91 - Unspecified atrial fibrillation Status: Chronic Assessment and Plan: * rate controlled * off eliquis due to RLE wound/laceration and forehead hematoma (5) CHF (congestive heart failure): Code(s): I50.9 - Heart failure, unspecified Status: Chronic Assessment and Plan: * off diuretic therapy due to hypotension/shock and need for vasopressors * recent Echo noted * follow volume status and respiratory status closely (6) Fall: Code(s): W19.XXXA - Unspecified fall, initial encounter Status: Acute Assessment and Plan: * Patient had a mechanical fall * hit head, a right elbow, and right lower extremity * imaging studies noted with resultant injuries * local wound care * PT/OT when more stable (7) DM2 (diabetes mellitus, type 2): Code(s): E11.9 - Type 2 diabetes mellitus without complications Status: Chronic Assessment and Plan: * follow accuchecks * glycemic control Will continue to follow. Subjective Date/time seen: 06/01/22 12:11 She continues to complain all over her body presumably secondary to laying in bed for several days; no other acute issues/problems voiced at this time; urine output continues to decline in the last few days despite interventions to date. Exam Narrative: General: elderly female in NAD but [place] Heart: IRRR, normal S1 and S2; no rub Lungs: decreased at bases Abdomen: soft, nontender, nondistended, positive bowel so
[2022-06-01 12:39] LABS: Glucose Point of Care 152 mg/dl (65-105)
[2022-06-01] MEDS: FUROSEMIDE INJ 100 MG/10 ML VIAL 80 MG IV PUSH (14:39)
--- NOTE | 2022-06-01 15:56 | PM.IMPN ---
Progress Note: A&P Assessment and Plan (1) Septic shock: Code(s): A41.9 - Sepsis, unspecified organism; R65.21 - Severe sepsis with septic shock Status: Acute Assessment and Plan: Septic shock with leukocytosis, elevated lactic acid levels, acute renal failure, hypotension refractory to IV fluid boluses, -patient initially was started on Blaise-Synephrine per peripheral access in the ER as her son who is the physician wanted to hold off on the central line -pressors as needed -continue vancomycin and Zosyn (renally dosed, started on 05/26/2022) cx Obtained and pending 06/01/2022 interval history 86-year-old female with septic shock was on pressor now her symptoms have improved and patient is off Levophed concerning for UTI so far urine and blood cultures are negative, patient has developed diarrhea, patient was complains of generalized pain and body aches, patient with history diabetes started the patient on gabapentin 100 mg t.i.d. today patient hgb was 6.8 however repeat hgb was 8.1 patient baseline Scr was 1.1 now rising to 2.2, patient is seen by database technician and workup is in progress. will continue to monitor, appreciate cmm operator and database technician, further recommendation to follow. (2) UTI (urinary tract infection): Code(s): N39.0 - Urinary tract infection, site not specified Status: Acute Assessment and Plan: UA reflective of UTI, patient started on Zosyn and vancomycin -urine cultures are pending (3) Acute kidney injury: Code(s): N17.9 - Acute kidney failure, unspecified Status: Acute Assessment and Plan: Patient presented with acute kidney injury, creatinine of 1.8 on admission (baseline creatinine 1.8-2.0 according to her son who is a physician) -creatinine days 1.7 (4) Fall: Code(s): W19.XXXA - Unspecified fall, initial encounter Status: Acute Assessment and Plan: Patient had a mechanical fall, hitting head, a right elbow has a right lower extremity -this could be possibly related to hypotension and septic shock -will obtain PT/ OT once patient is stable (5) Atrial fibrillation: Code(s): I48.91 - Unspecified atrial fibrillation Status: Chronic Assessment and Plan: Patient has a history of atrial fibrillation, currently rate controlled -patient is on Eliquis at home, currently on hold due to right lower extremity laceration and bleeding, cephalhematoma of the forehead -Eliquis currently on hold (6) CHF (congestive heart failure): Code(s): I50.9 - Heart failure, unspecified Status: Chronic Assessment and Plan: History of heart failure, on metolazone and Bumex at home -currently on hold due to hypotension and shock -05/27/2022 echocardiogram: LV dimension is normal, LV systolic function is normal estimated EF 65-70%. IV dimension is enlarged, by atrial dimensions are severely enlarged, there is moderate to severe tricuspid valve regurg 03/07/2021: Echocardiogram: LV chamber dimension is normal, LV systolic function estimated to be 55-60%. Severe biatrial dilatation trivial mitral valve regurg, mild tricuspid valve regurg, RV chamber dimension is normal, (7) Cirrhosis: Code(s): K74.60 - Unspecified cirrhosis of liver Status: Acute Assessment and Plan: CT scan of the abdomen and pelvis showed cirrhosis, LFTs are within normal limits -will continue to monitor (8) CVA (cerebral vascular accident): Code(s): I63.9 - Cerebral infarction, unspecified Status: Chronic Assessment and Plan: History of recent CVA recently on 04/13/2022 with the patient arrived with left upper extremity flaccidity and patient was transferred to [facility] (9) DM2 (diabetes mellitus, type 2): Code(s): E11.9 - Type 2 diabetes mellitus without complications Status: Chronic Assessment and Plan: Continue Accu-Cheks and sliding scale insulin (10) Hyponatremia: Code(s):
[2022-06-01 16:15] LABS: Chloride Rand Ur 73 mmol/L (32-290); Chloride/Creatinine Rand Ur 104 (38-318); Creatinine Random Urine 70 mg/dL (20-275)
[2022-06-01 16:26] LABS: Immunochemical Fecal Occult Bl Negative (N)
[2022-06-01 16:27] LABS: IFOB Positive Control Positive
[2022-06-01 17:09] LABS: Glucose Point of Care 186 mg/dl (65-105)
[2022-06-01 19:45] LABS: Kappa\\Lambda Light Chains 1.12 (0.26-1.65); Lambda Light Chain 11.4 mg/L (5.7-26.3)
[2022-06-01 21:07] LABS: Glucose Point of Care 261 mg/dl (65-105)
[2022-06-02] VITALS (10 sets, daily range): BP systolic 96–137; BP diastolic 55–114; PULSE 62–70; RESP 12–20; TEMP 35.8–36.4; O2SAT 94–98
[2022-06-02 01:04] LABS: Albumin 3.3 g/dL (3.8-4.8); Alpha 1 Globulin 0.4 g/dL (0.2-0.3); Alpha 2 Globulin 0.7 g/dL (0.5-0.9); Beta 1 Globulin 0.3 g/dL (0.4-0.6); Gamma Globulin 0.2 g/dL (0.8-1.7); Protein, Total 5.1 g/dL (6.1-8.1)
[2022-06-02] MEDS: CENTRAL LINE FLUSH 10 ML IV PUSH ×3 (04:57→23:42)
[2022-06-02 05:59] LABS: Hematocrit 26.1 % (37.0-47.0); Hemoglobin 8.4 g/dL (12.0-15.0); Mean Corpuscular HGB Conc 32.2 g/dl (32-36); Mean Corpuscular Hemoglobin 29.9 pg (26-34); Mean Corpuscular Volume 92.9 fl (80-100); Mean Platelet Volume 10.2 fl (7.4-10.4); Platelet Count Result 149 k/mm3 (150-375); Red Blood Count 2.81 M/mm3 (4.2-5.4); Red Cell Distribution Width 19.6 % (11.5-14.5); White Blood Count 15.4 K/mm3 (4.5-10.0)
[2022-06-02 06:50] LABS: Alanine Aminotransferase 45 U/L (6-35); Albumin Level 4.3 g/dL (3.5-5.1); Alkaline Phosphatase 208 U/L (38-126); Anion Gap 11 mmol/L (8-16); Aspartate Amino Transferase 38 U/L (14-36); Bilirubin,Total 0.8 mg/dL (0.2-1.3); Blood Urea Nitrogen 56 mg/dL (7-17); Calcium 8.8 mg/dL (8.4-10.2); Carbon Dioxide 20 mmol/L (22-30); Chloride 87 mmol/L (98-107); Estimated CRCL calculation 12 ml/min; Estimated Glomerular Filt Rate 13; Glucose 165 mg/dL (65-110); Magnesium 2.6 mg/dL (1.6-2.3); Phosphorus 4.5 mg/dL (2.5-4.5); Potassium 4.6 mmol/L (3.4-5.0); Sodium 118 mmol/L (137-145)
[2022-06-02] MEDS: SODIUM CHLORIDE 3% 240 ML 80 ML IV CONT (08:08)
[2022-06-02 08:09] LABS: Glucose Point of Care 149 mg/dl (65-105)
[2022-06-02] MEDS: SILVERGEL (ELTA) 45 ML 1 APPLIC TOPICAL (08:12)
[2022-06-02] MEDS: HYDROCORTISONE SODIUM SUCCINATE 100 MG/2 ML VIAL IV PUSH (08:12)
[2022-06-02] MEDS: GABAPENTIN 100 MG CAPSULE PO ×3 (08:13→17:07)
[2022-06-02] MEDS: CEFDINIR 300 MG CAPSULE PO (08:13)
[2022-06-02] MEDS: MIDODRINE HCL 10 MG TABLET PO ×3 (08:14→17:08)
[2022-06-02] MEDS: SODIUM CHLORIDE 1 GM TABLET PO ×2 (08:14→17:08)
[2022-06-02] MEDS: INSULIN GLARGINE (*BKC) 100 UNITS/ML 15 UNITS SUB-Q (08:14)
[2022-06-02] MEDS: PANTOPRAZOLE 40 MG TABLET PO (08:14)
--- NOTE | 2022-06-02 10:41 | PCPTNOTE ---
Attempted PT evaluation. PT refused due to being tired. RN aware.
[2022-06-02 11:37] LABS: Glucose Point of Care 201 mg/dl (65-105)
--- NOTE | 2022-06-02 11:40 | PM.PNNEP ---
Progress Note: A&P Assessment and Plan (1) Hyponatremia: Code(s): E87.1 - Hypo-osmolality and hyponatremia Status: Acute Assessment and Plan: appears acute on chronic baseline sodium seems to fluctuate ~ 126 - 133 (although has been as high as 136) chronic component due to: previous CVA possible PPI use thiazide diuretic (metolazone) loop diuretics (bumex) CHF liver cirrhosis CKD chronic pain (from her old rib fractures) acute component recent fall associated head trauma D5W IVFs (used as carrier fluid) oral/fluid intake limited (so need to fluid restrict) evaluation to date: TSH and cortisol okay most recent urine electrolytes look prerenal serum/urine osmo, and SPEP/UPEP pending changed all carrier fluid of IV meds/gtts/IVPB to normal saline on salt tablets with worsening sodium - given 3% saline with appropriate incremental response follow trend of repeat sodium levels (2) CKD (chronic kidney disease): Code(s): N18.9 - Chronic kidney disease, unspecified Status: Chronic Assessment and Plan: worsened by AM labs had been stable since admission suspect some fluctuations due to fluctuating hemodynamics/sepsis runs ~ 1.6 - 2.0mg/dl per family 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 diff toxin negative; stool studies pending on antibiotic therapy (4) Atrial fibrillation: Code(s): I48.91 - Unspecified atrial fibrillation Status: Chronic Assessment and Plan: rate controlled off eliquis due to RLE wound/laceration and forehead hematoma (5) CHF (congestive heart failure): Code(s): I50.9 - Heart failure, unspecified Status: Chronic Assessment and Plan: off diuretic therapy due to hypotension/shock and need for vasopressors recent Echo noted follow volume status and respiratory status closely (6) Fall: Code(s): W19.XXXA - Unspecified fall, initial encounter Status: Acute Assessment and Plan: Patient had a mechanical fall hit head, a right elbow, and right lower extremity imaging studies noted with resultant injuries local wound care PT/OT when more stable (7) DM2 (diabetes mellitus, type 2): Code(s): E11.9 - Type 2 diabetes mellitus without complications Status: Chronic Assessment and Plan: follow accuchecks glycemic control Will continue to follow. Subjective Date/time seen: 06/02/22 11:40 Remains off vasopressor therapy with relatively stable hemodynamics -- AM labs significant for a drop in sodium level and with rising in creatinine as well; 3% saline given due to low sodium this AM. Exam Narrative: General: elderly female in NAD but [place] Heart: IRRR, normal S1 and S2; no rub Lungs: decreased at bases Abdomen: soft, nontender, nondistended, positive bowel sounds Extremities: no cyanosis or clubbing; no edema Skin: bruising/wound noted at right elbow, right LE, and right forehead Objective Data Vital Signs Vital Signs: Vital Signs Temp Pulse Resp BP Pulse Ox O2 Del Method O2 Flow Rate 06/02/22 08:00 63 15 97 Nasal Cannula 2 06/02/22 08:00 97.1 F L 63 15 99/60 L 97 06/02/22 08:00 63 06/02/22 06:00 65 12 123/62 95 06/02/22 06:00 69 06/02/22 04:00 62 13 94 Nasal Cannula
--- NOTE | 2022-06-02 11:40 | P.PNNP_ITS ---
Progress Note: A&P Assessment and Plan (1) Hyponatremia: Code(s): E87.1 - Hypo-osmolality and hyponatremia Status: Acute Assessment and Plan: * appears acute on chronic * baseline sodium seems to fluctuate ~ 126 - 133 (although has been as high as 136) * chronic component due to: * previous CVA * possible PPI use * thiazide diuretic (metolazone) * loop diuretics (bumex) * CHF * liver cirrhosis * CKD * chronic pain (from her old rib fractures) * acute component * recent fall * associated head trauma * D5W IVFs (used as carrier fluid) * oral/fluid intake limited (so need to fluid restrict) * evaluation to date: * TSH and cortisol okay * most recent urine electrolytes look prerenal * serum/urine osmo, and SPEP/UPEP pending * changed all carrier fluid of IV meds/gtts/IVPB to normal saline * on salt tablets * with worsening sodium - given 3% saline with appropriate incremental response * follow trend of repeat sodium levels (2) CKD (chronic kidney disease): Code(s): N18.9 - Chronic kidney disease, unspecified Status: Chronic Assessment and Plan: * worsened by AM labs * had been stable since admission * suspect some fluctuations due to fluctuating hemodynamics/sepsis * runs ~ 1.6 - 2.0mg/dl per family * 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 * probably from her HTN, DM, vascular disease, CHF + diuretics, and age-related change * aside from hyponatremia, stable electrolytes but urine output dropping * follow trend of labs and UOP (3) Septic shock: Code(s): A41.9 - Sepsis, unspecified organism; R65.21 - Severe sepsis with septic shock Status: Acute Assessment and Plan: * as noted by elevated WBC, lactic acidosis, low BP unresponsive to IVFs * s/p 4L IVF resuscitation * was on vasopressor therapy to maintain MAP -- now off * lactic acid normalized * follow culture data * so far culture negative to date * recent issues with diarrhea - C. diff toxin negative; stool studies pending * on antibiotic therapy (4) Atrial fibrillation: Code(s): I48.91 - Unspecified atrial fibrillation Status: Chronic Assessment and Plan: * rate controlled * off eliquis due to RLE wound/laceration and forehead hematoma (5) CHF (congestive heart failure): Code(s): I50.9 - Heart failure, unspecified Status: Chronic Assessment and Plan: * off diuretic therapy due to hypotension/shock and need for vasopressors * recent Echo noted * follow volume status and respiratory status closely (6) Fall: Code(s): W19.XXXA - Unspecified fall, initial encounter Status: Acute Assessment and Plan: * Patient had a mechanical fall * hit head, a right elbow, and right lower extremity * imaging studies noted with resultant injuries * local wound care * PT/OT when more stable (7) DM2 (diabetes mellitus, type 2): Code(s): E11.9 - Type 2 diabetes mellitus without complications Status: Chronic Assessment and Plan: * follow accuchecks * glycemic control Will continue to follow. Subjective Date/time seen: 06/02/22 11:40 Remains off vasopressor therapy with relatively stable hemodynamics -- AM labs significant for a drop in sodium level and with rising in creatinine as well; 3% saline given due to low sodium this AM. Exam Narrative: General: elderly female in NAD but DIOMEDE Heart: IRRR, normal S1 and S2; no rub Lungs: dec
[2022-06-02] MEDS: INSULIN ASPART (*BKC) 100 UNITS/ML SUB-Q (11:48)
[2022-06-02 11:59] LABS: Sodium 121 mmol/L (137-145)
[2022-06-02 12:32] LABS: Glucose Point of Care 233 mg/dl (65-105)
--- NOTE | 2022-06-02 14:50 | PC.NURSE ---
This patient, Radha Pizano, was received from [facility] on 06/02/22 at 1450. Patient/family oriented to unit policies and routines
--- NOTE | 2022-06-02 15:02 | PC.NURSE ---
This patient, Radha Pizano, was transferred to [facility] on 06/02/22 at 1450. Personal belongings sent with patient. Report given to Antonina. Appropriate documentation sent with patient.
--- NOTE | 2022-06-02 16:49 | PM.IMPN ---
Progress Note: A&P Assessment and Plan (1) Septic shock: Code(s): A41.9 - Sepsis, unspecified organism; R65.21 - Severe sepsis with septic shock Status: Acute Assessment and Plan: Septic shock with leukocytosis, elevated lactic acid levels, acute renal failure, hypotension refractory to IV fluid boluses, -patient initially was started on Blaise-Synephrine per peripheral access in the ER as her son who is the physician wanted to hold off on the central line -pressors as needed -continue vancomycin and Zosyn (renally dosed, started on 05/26/2022) cx Obtained and pending 06/02/2022 interval history?86-year-old female with septic shock was on pressor now her symptoms have improved and patient is off Levophed concerning for UTI so far urine and blood cultures are negative, patient has developed diarrhea, patient was complains of generalized pain and body aches,? patient with history diabetes? started the patient on gabapentin 100 mg t.i.d. today patient hgb was 6.8 however repeat hgb was 8.1? patient baseline Scr was 1.1 now rising to 3.3 patient is seen by plastics sheet finishing press operator and discussed, patient may need dialysis, I spoke with patient son Aubrey, and recommeded consider hospice as patient may not be able to tolerate dialysis, they will have familly discussion, will let us know, will continue to monitor, appreciate plastics sheet finishing press operator, further recommendation to follow. (2) UTI (urinary tract infection): Code(s): N39.0 - Urinary tract infection, site not specified Status: Acute Assessment and Plan: UA reflective of UTI, patient started on Zosyn and vancomycin -urine cultures are pending (3) Acute kidney injury: Code(s): N17.9 - Acute kidney failure, unspecified Status: Acute Assessment and Plan: Patient presented with acute kidney injury, creatinine of 1.8 on admission (baseline creatinine 1.8-2.0 according to her son who is a physician) -creatinine days 1.7 (4) Fall: Code(s): W19.XXXA - Unspecified fall, initial encounter Status: Acute Assessment and Plan: Patient had a mechanical fall, hitting head, a right elbow has a right lower extremity -this could be possibly related to hypotension and septic shock -will obtain PT/ OT once patient is stable (5) Atrial fibrillation: Code(s): I48.91 - Unspecified atrial fibrillation Status: Chronic Assessment and Plan: Patient has a history of atrial fibrillation, currently rate controlled -patient is on Eliquis at home, currently on hold due to right lower extremity laceration and bleeding, cephalhematoma of the forehead -Eliquis currently on hold (6) CHF (congestive heart failure): Code(s): I50.9 - Heart failure, unspecified Status: Chronic Assessment and Plan: History of heart failure, on metolazone and Bumex at home -currently on hold due to hypotension and shock -05/27/2022 echocardiogram: LV dimension is normal, LV systolic function is normal estimated EF 65-70%. IV dimension is enlarged, by atrial dimensions are severely enlarged, there is moderate to severe tricuspid valve regurg 03/07/2021: Echocardiogram: LV chamber dimension is normal, LV systolic function estimated to be 55-60%. Severe biatrial dilatation trivial mitral valve regurg, mild tricuspid valve regurg, RV chamber dimension is normal, (7) Cirrhosis: Code(s): K74.60 - Unspecified cirrhosis of liver Status: Acute Assessment and Plan: CT scan of the abdomen and pelvis showed cirrhosis, LFTs are within normal limits -will continue to monitor (8) CVA (cerebral vascular accident): Code(s): I63.9 - Cerebral infarction, unspecified Status: Chronic Assessment and Plan: History of recent CVA recently on 04/13/2022 with the patient arrived with left upper extremity flaccidity and patient was transferred to [facility] (9) DM2 (diabetes mellitus, type 2): Code(s): E11.9 - Type 2 diabetes
[2022-06-02 19:00] LABS: Glucose Point of Care 169 mg/dl (65-105)
[2022-06-02 21:03] LABS: Glucose Point of Care 202 mg/dl (65-105)
[2022-06-02 22:06] LABS: Osmolality, Urine 299 mOsm/kg (50-1200)
[2022-06-03] VITALS (12 sets, daily range): BP systolic 105–128; BP diastolic 61–82; PULSE 60–74; RESP 14–22; TEMP 36.2–36.6; O2SAT 91–100
[2022-06-03 05:48] LABS: Hematocrit 26.3 % (37.0-47.0); Hemoglobin 8.6 g/dL (12.0-15.0); Mean Corpuscular HGB Conc 32.7 g/dl (32-36); Mean Corpuscular Hemoglobin 30.7 pg (26-34); Mean Corpuscular Volume 93.9 fl (80-100); Mean Platelet Volume 9.7 fl (7.4-10.4); Platelet Count Result 149 k/mm3 (150-375); Red Cell Distribution Width 19.7 % (11.5-14.5); White Blood Count 18.2 K/mm3 (4.5-10.0)
[2022-06-03 06:01] LABS: Alanine Aminotransferase 42 U/L (6-35); Albumin Level 4.3 g/dL (3.5-5.1); Alkaline Phosphatase 249 U/L (38-126); Anion Gap 9 mmol/L (8-16); Aspartate Amino Transferase 39 U/L (14-36); Bilirubin,Total 0.7 mg/dL (0.2-1.3); Blood Urea Nitrogen 59 mg/dL (7-17); Calcium 8.5 mg/dL (8.4-10.2); Carbon Dioxide 21 mmol/L (22-30); Chloride 89 mmol/L (98-107); Estimated CRCL calculation 9 ml/min; Estimated Glomerular Filt Rate 11; Glucose 154 mg/dL (65-110); Magnesium 2.6 mg/dL (1.6-2.3); Phosphorus 5.3 mg/dL (2.5-4.5); Potassium 4.6 mmol/L (3.4-5.0); Sodium 119 mmol/L (137-145)
[2022-06-03 08:57] LABS: Glucose Point of Care 145 mg/dl (65-105)
[2022-06-03] MEDS: SODIUM CHLORIDE 1 GM TABLET PO ×3 (09:49→17:27)
[2022-06-03] MEDS: INSULIN GLARGINE (*BKC) 100 UNITS/ML 15 UNITS SUB-Q (09:49)
[2022-06-03] MEDS: MIDODRINE HCL 10 MG TABLET PO ×3 (09:49→17:27)
[2022-06-03] MEDS: HYDROCORTISONE SODIUM SUCCINATE 100 MG/2 ML VIAL IV PUSH (09:51)
[2022-06-03] MEDS: CEFDINIR 300 MG CAPSULE PO (09:51)
[2022-06-03] MEDS: GABAPENTIN 100 MG CAPSULE PO ×3 (09:53→17:27)
[2022-06-03] MEDS: CENTRAL LINE FLUSH 10 ML IV PUSH ×3 (09:53→21:05)
[2022-06-03] MEDS: PANTOPRAZOLE 40 MG TABLET PO (09:53)
[2022-06-03] MEDS: SILVERGEL (ELTA) 45 ML 1 APPLIC TOPICAL (09:54)
[2022-06-03 12:10] LABS: Glucose Point of Care 197 mg/dl (65-105)
--- NOTE | 2022-06-03 12:48 | P.PNNP_ITS ---
Progress Note: A&P Assessment and Plan (1) Hyponatremia: Code(s): E87.1 - Hypo-osmolality and hyponatremia Status: Acute Assessment and Plan: * appears acute on chronic * baseline sodium seems to fluctuate ~ 126 - 133 (although has been as high as 136) * chronic component due to: * previous CVA * possible PPI use * thiazide diuretic (metolazone) * loop diuretics (bumex) * CHF * liver cirrhosis * CKD * chronic pain (from her old rib fractures) * acute component * KESHIA * recent fall * associated head trauma * D5W IVFs (used as carrier fluid) * oral/fluid intake limited (so need to fluid restrict) * evaluation to date: * TSH and cortisol okay * most recent urine electrolytes look prerenal * serum/urine osmo, and SPEP/UPEP pending * changed all carrier fluid of IV meds/gtts/IVPB to normal saline * on salt tablets * with worsening sodium - s/p 3% saline (on06/02/22) * follow trend of repeat sodium levels (2) Acute kidney injury: Code(s): N17.9 - Acute kidney failure, unspecified Status: Acute Assessment and Plan: * worsening noted in the last 24 - 48 hours * suspect ATN from sepsis and hemodynamics instability * strange that creatinine is worsening now instead on admission - perhaps pressors were helping maintain renal perfusion * suspect worsening hyponatremia due to this as well * declining urine output is also concerning * she remains at risk for requiring NUCLEAR OPERATOR/dialysis (3) CKD (chronic kidney disease): Code(s): N18.9 - Chronic kidney disease, unspecified Status: Chronic Assessment and Plan: * worsened by AM labs * had been stable since admission * suspect some fluctuations due to fluctuating hemodynamics/sepsis * runs ~ 1.6 - 2.0mg/dl per family * 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 diff toxin negative; stool studies pending * on antibiotic therapy (5) Atrial fibrillation: Code(s): I48.91 - Unspecified atrial fibrillation Status: Chronic Assessment and Plan: * rate controlled * off eliquis due to RLE wound/laceration and forehead hematoma (6) CHF (congestive heart failure): Code(s): I50.9 - Heart failure, unspecified Status: Chronic Assessment and Plan: * off diuretic therapy due to hypotension/shock and need for vasopressors * recent Echo noted * follow volume status and respiratory status closely (7) Fall: Code(s): W19.XXXA - Unspecified fall, initial encounter Status: Acute Assessment and Plan: * Patient had a mechanical fall * hit head, a right elbow, and right lower extremity * imaging studies noted with resultant injuries * local wound care * PT/OT when more stable (8) DM2 (diabetes mellitus, type 2): Code(s): E11.9 - Type 2 diabetes mellitus without complications Status: Chronic Assessment and Plan: * follow accuchecks * glycemic control
--- NOTE | 2022-06-03 12:48 | PM.PNNEP ---
Progress Note: A&P Assessment and Plan (1) Hyponatremia: Code(s): E87.1 - Hypo-osmolality and hyponatremia Status: Acute Assessment and Plan: appears acute on chronic baseline sodium seems to fluctuate ~ 126 - 133 (although has been as high as 136) chronic component due to: previous CVA possible PPI use thiazide diuretic (metolazone) loop diuretics (bumex) CHF liver cirrhosis CKD chronic pain (from her old rib fractures) acute component KESHIA recent fall associated head trauma D5W IVFs (used as carrier fluid) oral/fluid intake limited (so need to fluid restrict) evaluation to date: TSH and cortisol okay most recent urine electrolytes look prerenal serum/urine osmo, and SPEP/UPEP pending changed all carrier fluid of IV meds/gtts/IVPB to normal saline on salt tablets with worsening sodium - s/p 3% saline (on06/02/22) follow trend of repeat sodium levels (2) Acute kidney injury: Code(s): N17.9 - Acute kidney failure, unspecified Status: Acute Assessment and Plan: worsening noted in the last 24 - 48 hours suspect ATN from sepsis and hemodynamics instability strange that creatinine is worsening now instead on admission - perhaps pressors were helping maintain renal perfusion suspect worsening hyponatremia due to this as well declining urine output is also concerning she remains at risk for requiring GREY ROLL MAN/dialysis (3) CKD (chronic kidney disease): Code(s): N18.9 - Chronic kidney disease, unspecified Status: Chronic Assessment and Plan: worsened by AM labs had been stable since admission suspect some fluctuations due to fluctuating hemodynamics/sepsis runs ~ 1.6 - 2.0mg/dl per family 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 probably from her HTN, DM, vascular disease, CHF + diuretics, and age-related change follow trend of labs and UOP (4) Septic shock: Code(s): A41.9 - Sepsis, unspecified organism; R65.21 - Severe sepsis with septic shock Status: Acute Assessment and Plan: as noted by elevated WBC, lactic acidosis, low BP unresponsive to IVFs s/p 4L IVF resuscitation was on vasopressor therapy to maintain MAP -- now off lactic acid normalized follow culture data so far culture negative to date recent issues with diarrhea - C. diff toxin negative; stool studies pending on antibiotic therapy (5) Atrial fibrillation: Code(s): I48.91 - Unspecified atrial fibrillation Status: Chronic Assessment and Plan: rate controlled off eliquis due to RLE wound/laceration and forehead hematoma (6) CHF (congestive heart failure): Code(s): I50.9 - Heart failure, unspecified Status: Chronic Assessment and Plan: off diuretic therapy due to hypotension/shock and need for vasopressors recent Echo noted follow volume status and respiratory status closely (7) Fall: Code(s): W19.XXXA - Unspecified fall, initial encounter Status: Acute Assessment and Plan: Patient had a mechanical fall hit head, a right elbow, and right lower extremity imaging studies noted with resultant injuries local wound care PT/OT when more stable (8) DM2 (diabetes mellitus, type 2): Code(s): E11.9 - Type 2 diabetes mellitus without complications Status: Chronic Assessment and Plan: follow accuchecks glycemic control Long and extensive discussion (> 20 minutes) with son/POLuisa Lea (who is also a physician) regarding his mother's issues with renal failure, oligoanuria, worsening hyponatremia, and ongoing clinical deterioration with the possible need for renal replacement therapy; he is well aware of what dialysis is and what it entails (i.e. HD catheter placement, HD treatments 3x/week...etc) and the possible complications of this intervention; I discussed with him that my hope would be that dialysis would be a temporary measure however, given her adv
--- NOTE | 2022-06-03 16:04 | PM.IMPN ---
Progress Note: A&P Assessment and Plan (1) Septic shock: Code(s): A41.9 - Sepsis, unspecified organism; R65.21 - Severe sepsis with septic shock Status: Acute Assessment and Plan: Septic shock with leukocytosis, elevated lactic acid levels, acute renal failure, hypotension refractory to IV fluid boluses, -patient initially was started on Blaise-Synephrine per peripheral access in the ER as her son who is the physician wanted to hold off on the central line -pressors as needed -continue vancomycin and Zosyn (renally dosed, started on 05/26/2022) cx Obtained and pending 06/03/2022 interval history?86-year-old female with septic shock was on pressor now her symptoms have improved and patient is off Levophed concerning for UTI so far urine and blood cultures are negative, patient has developed diarrhea, patient was complains of generalized pain and body aches,? patient with history diabetes? started the patient on gabapentin 100 mg t.i.d. on 06/02 patient hgb was 6.8 however repeat hgb was 8.1? patient baseline Scr was 1.1 now rising to 4 today, patient is seen by network services project manager and discussed, patient may need dialysis,on 06/02 I spoke with patient son Aubrey, and today spoke with Venu, family has decied no dialysis, patient is still full code and they will determine code status, and recommeded consider hospice as patient may not be able to tolerate dialysis, they will have familly discussion, will let us know, will continue to monitor, appreciate network services project manager, further recommendation to follow. (2) UTI (urinary tract infection): Code(s): N39.0 - Urinary tract infection, site not specified Status: Acute Assessment and Plan: UA reflective of UTI, patient started on Zosyn and vancomycin -urine cultures are pending (3) Acute kidney injury: Code(s): N17.9 - Acute kidney failure, unspecified Status: Acute Assessment and Plan: Patient presented with acute kidney injury, creatinine of 1.8 on admission (baseline creatinine 1.8-2.0 according to her son who is a physician) -creatinine days 1.7 (4) Fall: Code(s): W19.XXXA - Unspecified fall, initial encounter Status: Acute Assessment and Plan: Patient had a mechanical fall, hitting head, a right elbow has a right lower extremity -this could be possibly related to hypotension and septic shock -will obtain PT/ OT once patient is stable (5) Atrial fibrillation: Code(s): I48.91 - Unspecified atrial fibrillation Status: Chronic Assessment and Plan: Patient has a history of atrial fibrillation, currently rate controlled -patient is on Eliquis at home, currently on hold due to right lower extremity laceration and bleeding, cephalhematoma of the forehead -Eliquis currently on hold (6) CHF (congestive heart failure): Code(s): I50.9 - Heart failure, unspecified Status: Chronic Assessment and Plan: History of heart failure, on metolazone and Bumex at home -currently on hold due to hypotension and shock -05/27/2022 echocardiogram: LV dimension is normal, LV systolic function is normal estimated EF 65-70%. IV dimension is enlarged, by atrial dimensions are severely enlarged, there is moderate to severe tricuspid valve regurg 03/07/2021: Echocardiogram: LV chamber dimension is normal, LV systolic function estimated to be 55-60%. Severe biatrial dilatation trivial mitral valve regurg, mild tricuspid valve regurg, RV chamber dimension is normal, (7) Cirrhosis: Code(s): K74.60 - Unspecified cirrhosis of liver Status: Acute Assessment and Plan: CT scan of the abdomen and pelvis showed cirrhosis, LFTs are within normal limits -will continue to monitor (8) CVA (cerebral vascular accident): Code(s): I63.9 - Cerebral infarction, unspecified Status: Chronic Assessment and Plan: History of recent CVA recently on 04/13/2022 with the patient arrived with left upper extremity flacc
[2022-06-03 17:13] LABS: Glucose Point of Care 248 mg/dl (65-105)
[2022-06-03] MEDS: INSULIN ASPART (*BKC) 100 UNITS/ML SUB-Q (17:26)
[2022-06-03 21:33] LABS: Glucose Point of Care 284 mg/dl (65-105)
[2022-06-04] VITALS (15 sets, daily range): BP systolic 90–135; BP diastolic 42–82; PULSE 62–78; RESP 16–22; TEMP 36–36.8; O2SAT 94–100; BMI 10.0
[2022-06-04] MEDS: CENTRAL LINE FLUSH 10 ML IV PUSH ×3 (05:05→21:05)
[2022-06-04 05:10] LABS: Hematocrit 27.1 % (37.0-47.0); Hemoglobin 8.7 g/dL (12.0-15.0); Mean Corpuscular HGB Conc 32.1 g/dl (32-36); Mean Corpuscular Hemoglobin 29.5 pg (26-34); Mean Corpuscular Volume 91.9 fl (80-100); Mean Platelet Volume 9.7 fl (7.4-10.4); Platelet Count Result 166 k/mm3 (150-375); Red Blood Count 2.95 M/mm3 (4.2-5.4); Red Cell Distribution Width 19.4 % (11.5-14.5); White Blood Count 18.8 K/mm3 (4.5-10.0)
[2022-06-04 05:38] LABS: Alanine Aminotransferase 40 U/L (6-35); Alkaline Phosphatase 263 U/L (38-126); Anion Gap 11 mmol/L (8-16); Aspartate Amino Transferase 33 U/L (14-36); Bilirubin,Total 0.7 mg/dL (0.2-1.3); Blood Urea Nitrogen 62 mg/dL (7-17); Calcium 8.1 mg/dL (8.4-10.2); Carbon Dioxide 18 mmol/L (22-30); Chloride 89 mmol/L (98-107); Glucose 172 mg/dL (65-110); Magnesium 2.5 mg/dL (1.6-2.3); Phosphorus 5.8 mg/dL (2.5-4.5); Potassium 4.7 mmol/L (3.4-5.0); Sodium 118 mmol/L (137-145)
[2022-06-04 05:41] LABS: Estimated CRCL calculation 9 ml/min; Estimated Glomerular Filt Rate 10
[2022-06-04 08:25] LABS: Glucose Point of Care 165 mg/dl (65-105)
[2022-06-04] MEDS: CEFDINIR 300 MG CAPSULE PO (08:31)
[2022-06-04] MEDS: GABAPENTIN 100 MG CAPSULE PO ×2 (08:31→16:02)
[2022-06-04] MEDS: HYDROCORTISONE SODIUM SUCCINATE 100 MG/2 ML VIAL IV PUSH (08:31)
[2022-06-04] MEDS: SODIUM CHLORIDE 1 GM TABLET PO ×2 (08:32→16:02)
[2022-06-04] MEDS: SILVERGEL (ELTA) 45 ML 1 APPLIC TOPICAL (08:32)
[2022-06-04] MEDS: PANTOPRAZOLE 40 MG TABLET PO (08:32)
[2022-06-04] MEDS: MIDODRINE HCL 10 MG TABLET PO ×2 (08:32→16:02)
[2022-06-04] MEDS: INSULIN GLARGINE (*BKC) 100 UNITS/ML 15 UNITS SUB-Q (08:43)
[2022-06-04 12:06] LABS: Glucose Point of Care 204 mg/dl (65-105)
--- NOTE | 2022-06-04 12:38 | PM.PNNEP ---
Progress Note: A&P Assessment and Plan (1) Hyponatremia: Code(s): E87.1 - Hypo-osmolality and hyponatremia Status: Acute Assessment and Plan: appears acute on chronic baseline sodium seems to fluctuate ~ 126 - 133 (although has been as high as 136) chronic component due to: previous CVA possible PPI use thiazide diuretic (metolazone) loop diuretics (bumex) CHF liver cirrhosis CKD chronic pain (from her old rib fractures) acute component KESHIA recent fall associated head trauma D5W IVFs (used as carrier fluid) oral/fluid intake limited (so need to fluid restrict) evaluation to date: TSH and cortisol okay most recent urine electrolytes look prerenal serum/urine osmo, and SPEP/UPEP pending changed all carrier fluid of IV meds/gtts/IVPB to normal saline on salt tablets with worsening sodium - s/p 3% saline (on) follow trend of repeat sodium levels (2) Acute kidney injury: Code(s): N17.9 - Acute kidney failure, unspecified Status: Acute Assessment and Plan: worsening noted in the last 24 - 48 hours suspect ATN from sepsis and hemodynamics instability strange that creatinine is worsening now instead on admission - perhaps pressors were helping maintain renal perfusion suspect worsening hyponatremia due to this as well declining urine output is also concerning she remains at risk for requiring EVS TECH/dialysis (however, family is not interested in pursuing this) (3) CKD (chronic kidney disease): Code(s): N18.9 - Chronic kidney disease, unspecified Status: Chronic Assessment and Plan: worsened by AM labs had been stable since admission suspect some fluctuations due to fluctuating hemodynamics/sepsis runs ~ 1.6 - 2.0mg/dl per family 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 probably from her HTN, DM, vascular disease, CHF + diuretics, and age-related change follow trend of labs and UOP (4) Septic shock: Code(s): A41.9 - Sepsis, unspecified organism; R65.21 - Severe sepsis with septic shock Status: Acute Assessment and Plan: as noted by elevated WBC, lactic acidosis, low BP unresponsive to IVFs s/p 4L IVF resuscitation was on vasopressor therapy to maintain MAP -- now off lactic acid normalized follow culture data so far culture negative to date recent issues with diarrhea - C. diff toxin negative; stool studies pending on antibiotic therapy (5) Atrial fibrillation: Code(s): I48.91 - Unspecified atrial fibrillation Status: Chronic Assessment and Plan: rate controlled off eliquis due to RLE wound/laceration and forehead hematoma (6) CHF (congestive heart failure): Code(s): I50.9 - Heart failure, unspecified Status: Chronic Assessment and Plan: off diuretic therapy due to hypotension/shock and need for vasopressors recent Echo noted follow volume status and respiratory status closely (7) Fall: Code(s): W19.XXXA - Unspecified fall, initial encounter Status: Acute Assessment and Plan: Patient had a mechanical fall hit head, a right elbow, and right lower extremity imaging studies noted with resultant injuries local wound care PT/OT when more stable (8) DM2 (diabetes mellitus, type 2): Code(s): E11.9 - Type 2 diabetes mellitus without complications Status: Chronic Assessment and Plan: follow accuchecks glycemic control Will continue to follow. Subjective Date/time seen: 06/04/22 12:38 Renal function along with urine output continues to decline in association with dropping sodium level; family has decided not to pursue dialysis as a treatment option and just recently changed code status to DNR; the patient reports pain all over. Exam Narrative: General: elderly female in NAD but WIL[place] Heart: IRRR, normal S1 and S2; no rub Lungs: decreased at bases Abdomen: soft, nontender, non
--- NOTE | 2022-06-04 12:38 | P.PNNP_ITS ---
Progress Note: A&P Assessment and Plan (1) Hyponatremia: Code(s): E87.1 - Hypo-osmolality and hyponatremia Status: Acute Assessment and Plan: * appears acute on chronic * baseline sodium seems to fluctuate ~ 126 - 133 (although has been as high as 136) * chronic component due to: * previous CVA * possible PPI use * thiazide diuretic (metolazone) * loop diuretics (bumex) * CHF * liver cirrhosis * CKD * chronic pain (from her old rib fractures) * acute component * KESHIA * recent fall * associated head trauma * D5W IVFs (used as carrier fluid) * oral/fluid intake limited (so need to fluid restrict) * evaluation to date: * TSH and cortisol okay * most recent urine electrolytes look prerenal * serum/urine osmo, and SPEP/UPEP pending * changed all carrier fluid of IV meds/gtts/IVPB to normal saline * on salt tablets * with worsening sodium - s/p 3% saline (on) * follow trend of repeat sodium levels (2) Acute kidney injury: Code(s): N17.9 - Acute kidney failure, unspecified Status: Acute Assessment and Plan: * worsening noted in the last 24 - 48 hours * suspect ATN from sepsis and hemodynamics instability * strange that creatinine is worsening now instead on admission - perhaps pressors were helping maintain renal perfusion * suspect worsening hyponatremia due to this as well * declining urine output is also concerning * she remains at risk for requiring MANAGER PERFORMANCE/dialysis (however, family is not interested in pursuing this) (3) CKD (chronic kidney disease): Code(s): N18.9 - Chronic kidney disease, unspecified Status: Chronic Assessment and Plan: * worsened by AM labs * had been stable since admission * suspect some fluctuations due to fluctuating hemodynamics/sepsis * runs ~ 1.6 - 2.0mg/dl per family * 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 diff toxin negative; stool studies pending * on antibiotic therapy (5) Atrial fibrillation: Code(s): I48.91 - Unspecified atrial fibrillation Status: Chronic Assessment and Plan: * rate controlled * off eliquis due to RLE wound/laceration and forehead hematoma (6) CHF (congestive heart failure): Code(s): I50.9 - Heart failure, unspecified Status: Chronic Assessment and Plan: * off diuretic therapy due to hypotension/shock and need for vasopressors * recent Echo noted * follow volume status and respiratory status closely (7) Fall: Code(s): W19.XXXA - Unspecified fall, initial encounter Status: Acute Assessment and Plan: * Patient had a mechanical fall * hit head, a right elbow, and right lower extremity * imaging studies noted with resultant injuries * local wound care * PT/OT when more stable (8) DM2 (diabetes mellitus, type 2): Code(s): E11.9 - Type 2 diabetes mellitus without complications Status: Chronic Assessment and Plan
--- NOTE | 2022-06-04 13:11 | PM.IMPN ---
Progress Note: A&P Assessment and Plan (1) Septic shock: Code(s): A41.9 - Sepsis, unspecified organism; R65.21 - Severe sepsis with septic shock Status: Acute Assessment and Plan: Septic shock with leukocytosis, elevated lactic acid levels, acute renal failure, hypotension refractory to IV fluid boluses, -patient initially was started on Blaise-Synephrine per peripheral access in the ER as her son who is the physician wanted to hold off on the central line -pressors as needed -continue vancomycin and Zosyn (renally dosed, started on 05/26/2022) cx Obtained and pending 06/04/2022 interval history?86-year-old female with septic shock was on pressor now her symptoms have improved and patient is off Levophed concerning for UTI so far urine and blood cultures are negative, patient has developed diarrhea, patient was complains of generalized pain and body aches,? patient with history diabetes? started the patient on gabapentin 100 mg t.i.d. on 06/02 patient hgb was 6.8 however repeat hgb was 8.1? patient baseline Scr was 1.1 now rising to 4 today, patient is seen by manager of application development and discussed, patient may need dialysis,on 06/02 I spoke with patient son Aubrey, and on 06/03 spoke with Venu, family has decied no dialysis, Today I spoke with Venu, family has placed patient on DNR, and recommeded consider hospice as patient may not be able to tolerate dialysis, they will have familly discussion, will let us know, will continue to monitor, appreciate manager of application development, further recommendation to follow. (2) UTI (urinary tract infection): Code(s): N39.0 - Urinary tract infection, site not specified Status: Acute Assessment and Plan: UA reflective of UTI, patient started on Zosyn and vancomycin -urine cultures are pending (3) Acute kidney injury: Code(s): N17.9 - Acute kidney failure, unspecified Status: Acute Assessment and Plan: Patient presented with acute kidney injury, creatinine of 1.8 on admission (baseline creatinine 1.8-2.0 according to her son who is a physician) -creatinine days 1.7 (4) Fall: Code(s): W19.XXXA - Unspecified fall, initial encounter Status: Acute Assessment and Plan: Patient had a mechanical fall, hitting head, a right elbow has a right lower extremity -this could be possibly related to hypotension and septic shock -will obtain PT/ OT once patient is stable (5) Atrial fibrillation: Code(s): I48.91 - Unspecified atrial fibrillation Status: Chronic Assessment and Plan: Patient has a history of atrial fibrillation, currently rate controlled -patient is on Eliquis at home, currently on hold due to right lower extremity laceration and bleeding, cephalhematoma of the forehead -Eliquis currently on hold (6) CHF (congestive heart failure): Code(s): I50.9 - Heart failure, unspecified Status: Chronic Assessment and Plan: History of heart failure, on metolazone and Bumex at home -currently on hold due to hypotension and shock -05/27/2022 echocardiogram: LV dimension is normal, LV systolic function is normal estimated EF 65-70%. IV dimension is enlarged, by atrial dimensions are severely enlarged, there is moderate to severe tricuspid valve regurg 03/07/2021: Echocardiogram: LV chamber dimension is normal, LV systolic function estimated to be 55-60%. Severe biatrial dilatation trivial mitral valve regurg, mild tricuspid valve regurg, RV chamber dimension is normal, (7) Cirrhosis: Code(s): K74.60 - Unspecified cirrhosis of liver Status: Acute Assessment and Plan: CT scan of the abdomen and pelvis showed cirrhosis, LFTs are within normal limits -will continue to monitor (8) CVA (cerebral vascular accident): Code(s): I63.9 - Cerebral infarction, unspecified Status: Chronic Assessment and Plan: History of recent CVA recently on 04/13/2022 with the patient arrived with left upper extremity flaccidit
[2022-06-04 13:39] LABS: Creatinine, Random Urine 97 mg/dL (20-275); Total Protein/Creatinine Ratio 433 mg/g creat (24-184)
[2022-06-04 17:01] LABS: Glucose Point of Care 228 mg/dl (65-105)
[2022-06-04] MEDS: INSULIN ASPART (*BKC) 100 UNITS/ML SUB-Q (17:12)
[2022-06-04 21:09] LABS: Glucose Point of Care 259 mg/dl (65-105)
[2022-06-05] VITALS (12 sets, daily range): BP systolic 98–126; BP diastolic 55–63; PULSE 69–76; RESP 16–22; TEMP 35.7–36.6; O2SAT 93–97
[2022-06-05] MEDS: CENTRAL LINE FLUSH 10 ML IV PUSH ×3 (05:11→21:16)
[2022-06-05 08:52] LABS: Glucose Point of Care 213 mg/dl (65-105)
[2022-06-05] MEDS: HYDROCORTISONE SODIUM SUCCINATE 100 MG/2 ML VIAL IV PUSH (09:05)
[2022-06-05] MEDS: GABAPENTIN 100 MG CAPSULE PO ×3 (09:06→17:49)
[2022-06-05] MEDS: MIDODRINE HCL 10 MG TABLET PO ×3 (09:06→17:49)
[2022-06-05] MEDS: PANTOPRAZOLE 40 MG TABLET PO (09:06)
[2022-06-05] MEDS: SODIUM CHLORIDE 1 GM TABLET PO ×3 (09:06→17:49)
[2022-06-05] MEDS: CEFDINIR 300 MG CAPSULE PO (09:07)
[2022-06-05] MEDS: INSULIN ASPART (*BKC) 100 UNITS/ML SUB-Q ×3 (09:07→17:48)
[2022-06-05] MEDS: INSULIN GLARGINE (*BKC) 100 UNITS/ML 15 UNITS SUB-Q (09:08)
[2022-06-05 09:46] LABS: Chloride 87 mmol/L (98-107)
[2022-06-05 09:49] LABS: Albumin Level 4.1 g/dL (3.5-5.1); Anion Gap 11 mmol/L (8-16); Blood Urea Nitrogen 71 mg/dL (7-17); Calcium 8.2 mg/dL (8.4-10.2); Carbon Dioxide 19 mmol/L (22-30); Glucose 182 mg/dL (65-110); Magnesium 2.5 mg/dL (1.6-2.3); Phosphorus 5.9 mg/dL (2.5-4.5); Potassium 5.1 mmol/L (3.4-5.0); Sodium 117 mmol/L (137-145)
[2022-06-05 09:54] LABS: Estimated CRCL calculation 8 ml/min; Estimated Glomerular Filt Rate 9
[2022-06-05 09:58] LABS: Hemoglobin 8.5 g/dL (12.0-15.0); Mean Corpuscular HGB Conc 32.7 g/dl (32-36); Mean Corpuscular Hemoglobin 30.2 pg (26-34); Mean Corpuscular Volume 92.5 fl (80-100); Mean Platelet Volume 10.3 fl (7.4-10.4); Platelet Count Result 164 k/mm3 (150-375); Red Blood Count 2.81 M/mm3 (4.2-5.4); Red Cell Distribution Width 19.8 % (11.5-14.5); White Blood Count 16.7 K/mm3 (4.5-10.0)
--- NOTE | 2022-06-05 11:00 | PM.PNNEP ---
Progress Note: A&P Assessment and Plan (1) Hyponatremia: Code(s): E87.1 - Hypo-osmolality and hyponatremia Status: Acute Assessment and Plan: appears acute on chronic baseline sodium seems to fluctuate ~ 126 - 133 (although has been as high as 136) chronic component due to: previous CVA possible PPI use thiazide diuretic (metolazone) loop diuretics (bumex) CHF liver cirrhosis CKD chronic pain (from her old rib fractures) acute component KESHIA recent fall associated head trauma D5W IVFs (used as carrier fluid) oral/fluid intake limited (so need to fluid restrict) evaluation to date: TSH and cortisol okay most recent urine electrolytes look prerenal serum/urine osmo, and SPEP/UPEP pending changed all carrier fluid of IV meds/gtts/IVPB to normal saline on salt tablets and s/p 3% saline (on ) however, no real improvement noted (likely due to #2) follow trend of repeat sodium levels (2) Acute kidney injury: Code(s): N17.9 - Acute kidney failure, unspecified Status: Acute Assessment and Plan: ongoing deterioration noted suspect ATN from sepsis and hemodynamics instability strange that creatinine is worsening now instead on admission - perhaps pressors were helping maintain renal perfusion suspect worsening hyponatremia due to this as well declining urine output is also concerning she remains at risk for requiring DIGITAL LIBRARIAN/dialysis (however, family is not interested in pursuing this intervention) (3) CKD (chronic kidney disease): Code(s): N18.9 - Chronic kidney disease, unspecified Status: Chronic Assessment and Plan: had been stable since admission suspect some fluctuations due to fluctuating hemodynamics/sepsis runs ~ 1.6 - 2.0mg/dl per family 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 probably from her HTN, DM, vascular disease, CHF + diuretics, and age-related change follow trend of labs and UOP (4) Septic shock: Code(s): A41.9 - Sepsis, unspecified organism; R65.21 - Severe sepsis with septic shock Status: Acute Assessment and Plan: as noted by elevated WBC, lactic acidosis, low BP unresponsive to IVFs s/p 4L IVF resuscitation was on vasopressor therapy to maintain MAP -- now off lactic acid normalized follow culture data so far culture negative to date on antibiotic therapy (5) Atrial fibrillation: Code(s): I48.91 - Unspecified atrial fibrillation Status: Chronic Assessment and Plan: rate controlled off eliquis due to RLE wound/laceration and forehead/facial hematoma (6) CHF (congestive heart failure): Code(s): I50.9 - Heart failure, unspecified Status: Chronic Assessment and Plan: off diuretic therapy due to hypotension/shock and need for vasopressors recent Echo noted follow volume status and respiratory status closely (7) Fall: Code(s): W19.XXXA - Unspecified fall, initial encounter Status: Acute Assessment and Plan: patient had a mechanical fall hit head, a right elbow, and right lower extremity imaging studies noted with resultant injuries local wound care (8) DM2 (diabetes mellitus, type 2): Code(s): E11.9 - Type 2 diabetes mellitus without complications Status: Chronic Assessment and Plan: follow accuchecks glycemic control Treatment options are limited based on family wishes; she is currently DNR and family not ready for comfort care/hospice at this time. Will continue to follow. Subjective Date/time seen: 06/05/22 11:00 Renal function continues to deteriorate as noted by AM labs with associated hyponatremia, metabolic acidosis, and mild hyperkalemia; declining urine output noted as well; no other acute issues/events noted at this time. Exam Narrative: General: elderly female in NAD but AMBLER Heart: IRRR, normal S1 and S2; no rub Lungs: decreased at bases Abdom
[2022-06-05 12:07] LABS: Glucose Point of Care 216 mg/dl (65-105)
[2022-06-05] MEDS: SILVERGEL (ELTA) 45 ML 1 APPLIC TOPICAL (12:19)
[2022-06-05 17:32] LABS: Glucose Point of Care 273 mg/dl (65-105)
--- NOTE | 2022-06-05 17:46 | PM.IMPN ---
Progress Note: A&P Assessment and Plan (1) Septic shock: Code(s): A41.9 - Sepsis, unspecified organism; R65.21 - Severe sepsis with septic shock Status: Acute Assessment and Plan: Septic shock with leukocytosis, elevated lactic acid levels, acute renal failure, hypotension refractory to IV fluid boluses, -patient initially was started on Blaise-Synephrine per peripheral access in the ER as her son who is the physician wanted to hold off on the central line -pressors as needed -continue vancomycin and Zosyn (renally dosed, started on 05/26/2022) cx Obtained and pending 06/05/2022 interval history?86-year-old female with septic shock was on pressor now her symptoms have improved and patient is off Levophed concerning for UTI so far urine and blood cultures are negative, patient has developed diarrhea, patient was complains of generalized pain and body aches,? patient with history diabetes? started the patient on gabapentin 100 mg t.i.d. on 06/02 patient hgb was 6.8 however repeat hgb was 8.1? patient baseline Scr was 1.1 now rising to 5.1 today, patient is seen by csr and discussed, patient may need dialysis,on 06/02 I spoke with patient son Aubrey, and on 06/03 spoke with Venu, family has decied no dialysis, on 06/04 I spoke with Venu, family has placed patient on DNR, and recommeded consider hospice as patient may not be able to tolerate dialysis, today patient daughter is present in the room, as caregiver, patient is sleeping, her Na is trending down, will continue to monitor. (2) UTI (urinary tract infection): Code(s): N39.0 - Urinary tract infection, site not specified Status: Acute Assessment and Plan: UA reflective of UTI, patient started on Zosyn and vancomycin -urine cultures are pending (3) Acute kidney injury: Code(s): N17.9 - Acute kidney failure, unspecified Status: Acute Assessment and Plan: Patient presented with acute kidney injury, creatinine of 1.8 on admission (baseline creatinine 1.8-2.0 according to her son who is a physician) -creatinine days 1.7 (4) Fall: Code(s): W19.XXXA - Unspecified fall, initial encounter Status: Acute Assessment and Plan: Patient had a mechanical fall, hitting head, a right elbow has a right lower extremity -this could be possibly related to hypotension and septic shock -will obtain PT/ OT once patient is stable (5) Atrial fibrillation: Code(s): I48.91 - Unspecified atrial fibrillation Status: Chronic Assessment and Plan: Patient has a history of atrial fibrillation, currently rate controlled -patient is on Eliquis at home, currently on hold due to right lower extremity laceration and bleeding, cephalhematoma of the forehead -Eliquis currently on hold (6) CHF (congestive heart failure): Code(s): I50.9 - Heart failure, unspecified Status: Chronic Assessment and Plan: History of heart failure, on metolazone and Bumex at home -currently on hold due to hypotension and shock -05/27/2022 echocardiogram: LV dimension is normal, LV systolic function is normal estimated EF 65-70%. IV dimension is enlarged, by atrial dimensions are severely enlarged, there is moderate to severe tricuspid valve regurg 03/07/2021: Echocardiogram: LV chamber dimension is normal, LV systolic function estimated to be 55-60%. Severe biatrial dilatation trivial mitral valve regurg, mild tricuspid valve regurg, RV chamber dimension is normal, (7) Cirrhosis: Code(s): K74.60 - Unspecified cirrhosis of liver Status: Acute Assessment and Plan: CT scan of the abdomen and pelvis showed cirrhosis, LFTs are within normal limits -will continue to monitor (8) CVA (cerebral vascular accident): Code(s): I63.9 - Cerebral infarction, unspecified Status: Chronic Assessment and Plan: History of recent CVA recently on 04/13/2022 with the patient arrived with left upper extremity flaccidity
[2022-06-05 20:27] LABS: Glucose Point of Care 274 mg/dl (65-105)
[2022-06-06] VITALS (9 sets, daily range): BP systolic 97–144; BP diastolic 48–84; PULSE 71–81; RESP 16–22; TEMP 36.2–36.8; O2SAT 93–96
[2022-06-06] MEDS: CENTRAL LINE FLUSH 10 ML IV PUSH ×3 (05:05→21:00)
[2022-06-06 05:15] LABS: Hematocrit 25.1 % (37.0-47.0); Hemoglobin 8.2 g/dL (12.0-15.0); Mean Corpuscular HGB Conc 32.7 g/dl (32-36); Mean Corpuscular Hemoglobin 29.7 pg (26-34); Mean Corpuscular Volume 90.9 fl (80-100); Mean Platelet Volume 9.8 fl (7.4-10.4); Platelet Count Result 145 k/mm3 (150-375); Red Blood Count 2.76 M/mm3 (4.2-5.4); Red Cell Distribution Width 19.6 % (11.5-14.5); White Blood Count 16.8 K/mm3 (4.5-10.0)
[2022-06-06 05:27] LABS: Albumin Level 3.9 g/dL (3.5-5.1); Anion Gap 12 mmol/L (8-16); Blood Urea Nitrogen 72 mg/dL (7-17); Carbon Dioxide 17 mmol/L (22-30); Chloride 85 mmol/L (98-107); Glucose 151 mg/dL (65-110); Magnesium 2.4 mg/dL (1.6-2.3); Phosphorus 5.6 mg/dL (2.5-4.5); Potassium 5.1 mmol/L (3.4-5.0); Sodium 114 mmol/L (137-145)
[2022-06-06 05:33] LABS: Estimated CRCL calculation 8 ml/min; Estimated Glomerular Filt Rate 9
[2022-06-06 08:28] LABS: Glucose Point of Care 146 mg/dl (65-105)
[2022-06-06] MEDS: SODIUM CHLORIDE 3% 250 ML 80 ML IV CONT (08:40)
[2022-06-06] MEDS: CEFDINIR 300 MG CAPSULE PO (08:43)
[2022-06-06] MEDS: HYDROCORTISONE SODIUM SUCCINATE 100 MG/2 ML VIAL IV PUSH (08:43)
[2022-06-06] MEDS: GABAPENTIN 100 MG CAPSULE PO ×3 (08:43→17:19)
[2022-06-06] MEDS: INSULIN GLARGINE (*BKC) 100 UNITS/ML 15 UNITS SUB-Q (08:43)
[2022-06-06] MEDS: SODIUM CHLORIDE 1 GM TABLET PO ×3 (08:44→17:19)
[2022-06-06] MEDS: PANTOPRAZOLE 40 MG TABLET PO (08:44)
[2022-06-06] MEDS: MIDODRINE HCL 10 MG TABLET PO ×3 (08:44→17:19)
[2022-06-06] MEDS: SILVERGEL (ELTA) 45 ML 1 APPLIC TOPICAL (08:45)
--- NOTE | 2022-06-06 10:43 | PCNFU ---
Nutrition Follow-Up Complete: Inadequate oral intake related to loss of appetite, acute illness as evidenced by poor intake, pt and family report of poor appetite Goal: Increase PO intake to at least 50% meals and supplements Patient has limited progress towards goal. We will continue current goal. Pt current nutrition is [facility]. Last recorded weight is 88.6 kg. Bowel Motility: +BM reported 06/04 Labs Reviewed:Na 114,Mg 2.4, BUN 72, Cr 4.7,Glu 151, K 5.1 Meds Noted:Protonix, Midodrine, Lantus Skin: WNL Additional Notes: Patient remains on a DBCC diet. Oral Intake has been poor 0-30% of meals consumed. Daughter is assisting patient with meals. Diet supplement remains on trays Ensure compact BID and Ensure High protein pudding BID. PO intake is encouraged. Monitoring intakes, weights, labs, supplement tolerance, plan of care, every 5 days.
--- NOTE | 2022-06-06 10:49 | P.PNNP_ITS ---
Progress Note: A&P Assessment and Plan (1) Hyponatremia: Code(s): E87.1 - Hypo-osmolality and hyponatremia Status: Acute Assessment and Plan: * appears acute on chronic * baseline sodium seems to fluctuate ~ 126 - 133 (although has been as high as 136) * chronic component due to: * previous CVA * possible PPI use * thiazide diuretic (metolazone) * loop diuretics (bumex) * CHF * liver cirrhosis * CKD * chronic pain (from her old rib fractures) * acute component * KESHIA * recent fall * associated head trauma * D5W IVFs (used as carrier fluid) * oral/fluid intake limited (so need to fluid restrict) * evaluation to date: * TSH and cortisol okay * most recent urine electrolytes look prerenal * serum/urine osmo, and SPEP/UPEP pending * changed all carrier fluid of IV meds/gtts/IVPB to normal saline * on salt tablets and s/p 3% saline (on ) * however, no real improvement noted (likely due to #2) * follow trend of repeat sodium levels (2) Acute kidney injury: Code(s): N17.9 - Acute kidney failure, unspecified Status: Acute Assessment and Plan: * ongoing deterioration noted * suspect ATN from sepsis and hemodynamics instability * strange that creatinine is worsening now instead on admission - perhaps pressors were helping maintain renal perfusion * suspect worsening hyponatremia due to this as well * declining urine output is also concerning * she remains at risk for requiring TELEGRAPHIC SERVICE DISPATCHER/dialysis (however, family is not interested in pursuing this intervention) (3) CKD (chronic kidney disease): Code(s): N18.9 - Chronic kidney disease, unspecified Status: Chronic Assessment and Plan: * had been stable since admission * suspect some fluctuations due to fluctuating hemodynamics/sepsis * runs ~ 1.6 - 2.0mg/dl per family * 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 * probably from her HTN, DM, vascular disease, CHF + diuretics, and age-related change * follow trend of labs and UOP (4) Septic shock: Code(s): A41.9 - Sepsis, unspecified organism; R65.21 - Severe sepsis with septic shock Status: Acute Assessment and Plan: * as noted by elevated WBC, lactic acidosis, low BP unresponsive to IVFs * s/p 4L IVF resuscitation * was on vasopressor therapy to maintain MAP -- now off * lactic acid normalized * follow culture data * so far culture negative to date * on antibiotic therapy (5) Atrial fibrillation: Code(s): I48.91 - Unspecified atrial fibrillation Status: Chronic Assessment and Plan: * rate controlled * off eliquis due to RLE wound/laceration and forehead/facial hematoma (6) CHF (congestive heart failure): Code(s): I50.9 - Heart failure, unspecified Status: Chronic Assessment and Plan: * off diuretic therapy due to hypotension/shock and need for vasopressors * recent Echo noted * follow volume status and respiratory status closely (7) Fall: Code(s): W19.XXXA - Unspecified fall, initial encounter Status: Acute Assessment and Plan: * patient had a mechanical fall * hit head, a right elbow, and right lower extremity * imaging studies noted with resultant injuries * local wound care (8) DM2 (diabetes mellitus, type 2): Code(s): E11.9 - Type 2 diabetes mellitus without complications Status: Chronic Assessment and Plan: * follow accuchecks * glycemic control Treatment options are limited based
--- NOTE | 2022-06-06 10:49 | PM.PNNEP ---
Progress Note: A&P Assessment and Plan (1) Hyponatremia: Code(s): E87.1 - Hypo-osmolality and hyponatremia Status: Acute Assessment and Plan: appears acute on chronic baseline sodium seems to fluctuate ~ 126 - 133 (although has been as high as 136) chronic component due to: previous CVA possible PPI use thiazide diuretic (metolazone) loop diuretics (bumex) CHF liver cirrhosis CKD chronic pain (from her old rib fractures) acute component KESHIA recent fall associated head trauma D5W IVFs (used as carrier fluid) oral/fluid intake limited (so need to fluid restrict) evaluation to date: TSH and cortisol okay most recent urine electrolytes look prerenal serum/urine osmo, and SPEP/UPEP pending changed all carrier fluid of IV meds/gtts/IVPB to normal saline on salt tablets and s/p 3% saline (on ) however, no real improvement noted (likely due to #2) follow trend of repeat sodium levels (2) Acute kidney injury: Code(s): N17.9 - Acute kidney failure, unspecified Status: Acute Assessment and Plan: ongoing deterioration noted suspect ATN from sepsis and hemodynamics instability strange that creatinine is worsening now instead on admission - perhaps pressors were helping maintain renal perfusion suspect worsening hyponatremia due to this as well declining urine output is also concerning she remains at risk for requiring PRIVATE CLIENT ADVISOR/dialysis (however, family is not interested in pursuing this intervention) (3) CKD (chronic kidney disease): Code(s): N18.9 - Chronic kidney disease, unspecified Status: Chronic Assessment and Plan: had been stable since admission suspect some fluctuations due to fluctuating hemodynamics/sepsis runs ~ 1.6 - 2.0mg/dl per family 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 probably from her HTN, DM, vascular disease, CHF + diuretics, and age-related change follow trend of labs and UOP (4) Septic shock: Code(s): A41.9 - Sepsis, unspecified organism; R65.21 - Severe sepsis with septic shock Status: Acute Assessment and Plan: as noted by elevated WBC, lactic acidosis, low BP unresponsive to IVFs s/p 4L IVF resuscitation was on vasopressor therapy to maintain MAP -- now off lactic acid normalized follow culture data so far culture negative to date on antibiotic therapy (5) Atrial fibrillation: Code(s): I48.91 - Unspecified atrial fibrillation Status: Chronic Assessment and Plan: rate controlled off eliquis due to RLE wound/laceration and forehead/facial hematoma (6) CHF (congestive heart failure): Code(s): I50.9 - Heart failure, unspecified Status: Chronic Assessment and Plan: off diuretic therapy due to hypotension/shock and need for vasopressors recent Echo noted follow volume status and respiratory status closely (7) Fall: Code(s): W19.XXXA - Unspecified fall, initial encounter Status: Acute Assessment and Plan: patient had a mechanical fall hit head, a right elbow, and right lower extremity imaging studies noted with resultant injuries local wound care (8) DM2 (diabetes mellitus, type 2): Code(s): E11.9 - Type 2 diabetes mellitus without complications Status: Chronic Assessment and Plan: follow accuchecks glycemic control Treatment options are limited based on family wishes; she is currently DNR and family not ready for comfort care/hospice at this time. Will continue to follow. Subjective Date/time seen: 06/06/22 10:49 Ongoing worsening of sodium, metabolic acidosis, mild hyperkalemia, and renal dysfunction noted by trend of labs in addition to poor urine output; 3% saline being given as it appears salt tablets not really having much effect in improving hyponatremia. Exam Narrative: General: elderly female in NAD but [place] Heart: IRRR, normal S1 and S2; no rub
[2022-06-06 11:20] LABS: Haptoglobin 201 mg/dL (43-212)
--- NOTE | 2022-06-06 11:58 | PM.IMPN ---
Progress Note: A&P Assessment and Plan (1) Septic shock: Code(s): A41.9 - Sepsis, unspecified organism; R65.21 - Severe sepsis with septic shock Status: Acute Assessment and Plan: Septic shock with leukocytosis, elevated lactic acid levels, acute renal failure, hypotension refractory to IV fluid boluses, -patient initially was started on Blaise-Synephrine per peripheral access in the ER as her son who is the physician wanted to hold off on the central line -pressors as needed -continue vancomycin and Zosyn (renally dosed, started on 05/26/2022) cx Obtained and pending 06/06/2022 interval history?86-year-old female with septic shock was on pressor now her symptoms have improved and patient is off Levophed concerning for UTI so far urine and blood cultures are negative, patient has developed diarrhea, patient was complains of generalized pain and body aches,? patient with history diabetes? started the patient on gabapentin 100 mg t.i.d. on 06/02 patient hgb was 6.8 however repeat hgb was 8.1? patient baseline Scr was 1.1 now rising to 4.7 today but little better than yesterday it was 5.1 patient is seen by stencil typist and discussed, patient may need dialysis,on 06/02 I spoke with patient son Aubrey, and on 06/03 spoke with Venu, family has decied no dialysis, on 06/04 I spoke with Venu, family has placed patient on DNR, and recommeded consider hospice as patient may not be able to tolerate dialysis, today patient daughter is present in the room, as caregiver, patient is little awake wants to take shower, nursing staff will help, her Na is trending 114 stencil typist has give 3% Nacl, will continue to monitor. (2) UTI (urinary tract infection): Code(s): N39.0 - Urinary tract infection, site not specified Status: Acute Assessment and Plan: UA reflective of UTI, patient started on Zosyn and vancomycin -urine cultures are pending (3) Acute kidney injury: Code(s): N17.9 - Acute kidney failure, unspecified Status: Acute Assessment and Plan: Patient presented with acute kidney injury, creatinine of 1.8 on admission (baseline creatinine 1.8-2.0 according to her son who is a physician) -creatinine days 1.7 (4) Fall: Code(s): W19.XXXA - Unspecified fall, initial encounter Status: Acute Assessment and Plan: Patient had a mechanical fall, hitting head, a right elbow has a right lower extremity -this could be possibly related to hypotension and septic shock -will obtain PT/ OT once patient is stable (5) Atrial fibrillation: Code(s): I48.91 - Unspecified atrial fibrillation Status: Chronic Assessment and Plan: Patient has a history of atrial fibrillation, currently rate controlled -patient is on Eliquis at home, currently on hold due to right lower extremity laceration and bleeding, cephalhematoma of the forehead -Eliquis currently on hold (6) CHF (congestive heart failure): Code(s): I50.9 - Heart failure, unspecified Status: Chronic Assessment and Plan: History of heart failure, on metolazone and Bumex at home -currently on hold due to hypotension and shock -05/27/2022 echocardiogram: LV dimension is normal, LV systolic function is normal estimated EF 65-70%. IV dimension is enlarged, by atrial dimensions are severely enlarged, there is moderate to severe tricuspid valve regurg 03/07/2021: Echocardiogram: LV chamber dimension is normal, LV systolic function estimated to be 55-60%. Severe biatrial dilatation trivial mitral valve regurg, mild tricuspid valve regurg, RV chamber dimension is normal, (7) Cirrhosis: Code(s): K74.60 - Unspecified cirrhosis of liver Status: Acute Assessment and Plan: CT scan of the abdomen and pelvis showed cirrhosis, LFTs are within normal limits -will continue to monitor (8) CVA (cerebral vascular accident): Code(s): I63.9 - Cerebral infarction, unspecified Status: Chronic As
[2022-06-06 12:20] LABS: Glucose Point of Care 222 mg/dl (65-105)
[2022-06-06] MEDS: INSULIN ASPART (*BKC) 100 UNITS/ML SUB-Q ×2 (12:34→17:20)
[2022-06-06 14:16] LABS: Sodium 116 mmol/L (137-145)
[2022-06-06 17:20] LABS: Glucose Point of Care 224 mg/dl (65-105)
[2022-06-06 21:07] LABS: Glucose Point of Care 225 mg/dl (65-105)
[2022-06-07 01:03] VITALS: BP 129/59; PULSE 72; RESP 18; TEMP 34.7; O2SAT 94
[2022-06-07 04:44] VITALS: BP 107/57; PULSE 78; RESP 24; TEMP 36.3; O2SAT 93
[2022-06-07 04:54] LABS: Hematocrit 26.6 % (37.0-47.0); Hemoglobin 8.7 g/dL (12.0-15.0); Mean Corpuscular HGB Conc 32.7 g/dl (32-36); Mean Corpuscular Hemoglobin 29.9 pg (26-34); Mean Corpuscular Volume 91.4 fl (80-100); Mean Platelet Volume 10.1 fl (7.4-10.4); Platelet Count Result 162 k/mm3 (150-375); Red Blood Count 2.91 M/mm3 (4.2-5.4); Red Cell Distribution Width 19.3 % (11.5-14.5); White Blood Count 19.9 K/mm3 (4.5-10.0)
[2022-06-07 05:07] LABS: Albumin Level 3.9 g/dL (3.5-5.1); Anion Gap 15 mmol/L (8-16); Blood Urea Nitrogen 77 mg/dL (7-17); Calcium 8.2 mg/dL (8.4-10.2); Carbon Dioxide 15 mmol/L (22-30); Chloride 88 mmol/L (98-107); Glucose 155 mg/dL (65-110); Magnesium 2.4 mg/dL (1.6-2.3); Phosphorus 6.3 mg/dL (2.5-4.5); Potassium 5.5 mmol/L (3.4-5.0); Sodium 118 mmol/L (137-145)
[2022-06-07 05:11] LABS: Estimated CRCL calculation 8 ml/min; Estimated Glomerular Filt Rate 9
[2022-06-07] MEDS: CENTRAL LINE FLUSH 10 ML IV PUSH ×3 (05:31→22:00)
--- NOTE | 2022-06-07 06:19 | PC.NURSE ---
Pt lethargic, unresponsive , agonal breathing most of shift until @0400, pt started mumbling. Asked pt if she cold. Pt stated No I'm ok . Then pt breathing increased, eyes open, moving arm. Gave sips of water. Oral care provided. Position change.
[2022-06-07 08:40] LABS: Glucose Point of Care 168 mg/dl (65-105)
[2022-06-07 09:48] VITALS: BP 107/56; PULSE 72; RESP 18; TEMP 36.1; O2SAT 92
[2022-06-07 10:15] VITALS: O2SAT 93
[2022-06-07] MEDS: HYDROCORTISONE SODIUM SUCCINATE 100 MG/2 ML VIAL IV PUSH (11:01)
[2022-06-07] MEDS: MORPHINE SULFATE (*CRX) 2 MG/ML INJ IV PUSH (11:04)
--- NOTE | 2022-06-07 12:35 | PM.PNNEP ---
Progress Note: A&P Assessment and Plan (1) Hyponatremia: Code(s): E87.1 - Hypo-osmolality and hyponatremia Status: Acute Assessment and Plan: appears acute on chronic baseline sodium seems to fluctuate ~ 126 - 133 (although has been as high as 136) chronic component due to: previous CVA possible PPI use thiazide diuretic (metolazone) loop diuretics (bumex) CHF liver cirrhosis CKD chronic pain (from her old rib fractures) acute component KESHIA recent fall associated head trauma D5W IVFs (used as carrier fluid) oral/fluid intake limited (so need to fluid restrict) evaluation to date: TSH and cortisol okay most recent urine electrolytes look prerenal serum/urine osmo, and SPEP/UPEP pending changed all carrier fluid of IV meds/gtts/IVPB to normal saline on salt tablets and s/p 3% saline (on ) however, no real improvement noted (likely due to #2) follow trend of repeat sodium levels (2) Acute kidney injury: Code(s): N17.9 - Acute kidney failure, unspecified Status: Acute Assessment and Plan: ongoing deterioration noted suspect ATN from sepsis and hemodynamics instability strange that creatinine is worsening now instead on admission - perhaps pressors were helping maintain renal perfusion suspect worsening hyponatremia due to this as well declining urine output is also concerning she remains at risk for requiring TIE BINDER/dialysis (however, family is not interested in pursuing this intervention) (3) CKD (chronic kidney disease): Code(s): N18.9 - Chronic kidney disease, unspecified Status: Chronic Assessment and Plan: had been stable since admission suspect some fluctuations due to fluctuating hemodynamics/sepsis runs ~ 1.6 - 2.0mg/dl per family 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 probably from her HTN, DM, vascular disease, CHF + diuretics, and age-related change follow trend of labs and UOP (4) Septic shock: Code(s): A41.9 - Sepsis, unspecified organism; R65.21 - Severe sepsis with septic shock Status: Acute Assessment and Plan: as noted by elevated WBC, lactic acidosis, low BP unresponsive to IVFs s/p 4L IVF resuscitation was on vasopressor therapy to maintain MAP -- now off lactic acid normalized follow culture data so far culture negative to date on antibiotic therapy (5) Atrial fibrillation: Code(s): I48.91 - Unspecified atrial fibrillation Status: Chronic Assessment and Plan: rate controlled off eliquis due to RLE wound/laceration and forehead/facial hematoma (6) CHF (congestive heart failure): Code(s): I50.9 - Heart failure, unspecified Status: Chronic Assessment and Plan: off diuretic therapy due to hypotension/shock and need for vasopressors recent Echo noted follow volume status and respiratory status closely (7) Fall: Code(s): W19.XXXA - Unspecified fall, initial encounter Status: Acute Assessment and Plan: patient had a mechanical fall hit head, a right elbow, and right lower extremity imaging studies noted with resultant injuries local wound care (8) DM2 (diabetes mellitus, type 2): Code(s): E11.9 - Type 2 diabetes mellitus without complications Status: Chronic Assessment and Plan: follow accuchecks glycemic control Recommend re-discussion with family regarding goals of therapy as it seems that ongoing conservative therapy has not resulted in any significant improvement in the last few days. Will continue to follow. Subjective Date/time seen: 06/07/22 12:35 Sodium better but working potassium in association with oliguria, metabolic acidosis, and possible uremia; still not making much urine; appears more somnolent/lethargic at this time. Exam Narrative: General: elderly female in NAD but [place] Heart: IRRR, normal S1 and S2; no rub Lungs: decreased at bases
[2022-06-07] MEDS: SILVERGEL (ELTA) 45 ML 1 APPLIC TOPICAL (12:57)
--- NOTE | 2022-06-07 13:57 | PM.IMPN ---
Progress Note: A&P Assessment and Plan (1) Septic shock: Code(s): A41.9 - Sepsis, unspecified organism; R65.21 - Severe sepsis with septic shock Status: Acute Assessment and Plan: Septic shock with leukocytosis, elevated lactic acid levels, acute renal failure, hypotension refractory to IV fluid boluses, -patient initially was started on Blaise-Synephrine per peripheral access in the ER as her son who is the physician wanted to hold off on the central line -pressors as needed -continue vancomycin and Zosyn (renally dosed, started on 05/26/2022) cx Obtained and pending 06/07/2022 interval history?86-year-old female with septic shock was on pressor now her symptoms have improved and patient is off Levophed concerning for UTI so far urine and blood cultures are negative, patient has developed diarrhea, patient was complains of generalized pain and body aches,? patient with history diabetes? started the patient on gabapentin 100 mg t.i.d. on 06/02 patient hgb was 6.8 however repeat hgb was 8.1? patient baseline Scr was 1.1 now rising to 4.7 today but little better than yesterday it was 5.1 patient is seen by g[employer] mobile and discussed, patient may need dialysis,on 06/02 I spoke with patient son Aubrey, and on 06/03 spoke with Venu, family has decied no dialysis, on 06/04 I spoke with Venu, family has placed patient on DNR, and recommeded consider hospice as patient may not be able to tolerate dialysis,on 06/06 her Na was trending 114 gm mobile gave her 3% Nacl, today patient daughter is present in the room, as caregiver, patient is more somnolent and struggling I spoke with the patient's son Venu and has agreed to place the patient under comfort care and I have placed orders will continue to monitor. (2) UTI (urinary tract infection): Code(s): N39.0 - Urinary tract infection, site not specified Status: Acute Assessment and Plan: UA reflective of UTI, patient started on Zosyn and vancomycin -urine cultures are pending (3) Acute kidney injury: Code(s): N17.9 - Acute kidney failure, unspecified Status: Acute Assessment and Plan: Patient presented with acute kidney injury, creatinine of 1.8 on admission (baseline creatinine 1.8-2.0 according to her son who is a physician) -creatinine days 1.7 (4) Fall: Code(s): W19.XXXA - Unspecified fall, initial encounter Status: Acute Assessment and Plan: Patient had a mechanical fall, hitting head, a right elbow has a right lower extremity -this could be possibly related to hypotension and septic shock -will obtain PT/ OT once patient is stable (5) Atrial fibrillation: Code(s): I48.91 - Unspecified atrial fibrillation Status: Chronic Assessment and Plan: Patient has a history of atrial fibrillation, currently rate controlled -patient is on Eliquis at home, currently on hold due to right lower extremity laceration and bleeding, cephalhematoma of the forehead -Eliquis currently on hold (6) CHF (congestive heart failure): Code(s): I50.9 - Heart failure, unspecified Status: Chronic Assessment and Plan: History of heart failure, on metolazone and Bumex at home -currently on hold due to hypotension and shock -05/27/2022 echocardiogram: LV dimension is normal, LV systolic function is normal estimated EF 65-70%. IV dimension is enlarged, by atrial dimensions are severely enlarged, there is moderate to severe tricuspid valve regurg 03/07/2021: Echocardiogram: LV chamber dimension is normal, LV systolic function estimated to be 55-60%. Severe biatrial dilatation trivial mitral valve regurg, mild tricuspid valve regurg, RV chamber dimension is normal, (7) Cirrhosis: Code(s): K74.60 - Unspecified cirrhosis of liver Status: Acute Assessment and Plan: CT scan of the abdomen and pelvis showed cirrhosis, LFTs are within normal limits -will continue to monitor (8) CVA (cerebral vascular acciden
[2022-06-07 14:51] VITALS: BP 111/48; PULSE 70; RESP 20; TEMP 35.8; O2SAT 79
[2022-06-07 20:00] VITALS: BP 123/58; PULSE 94; RESP 16; TEMP 36.5; O2SAT 89
[2022-06-08] MEDS: MORPHINE SULFATE (*CRX) 2 MG/ML INJ IV PUSH ×2 (00:22→01:55)
[2022-06-08] MEDS: ATROPINE SULFATE 1% OPHTH SOLN 5 ML BOTTLE SUBLINGUAL (00:24)
--- NOTE | 2022-06-08 04:38 | PC.NURSE ---
Pt unresponsive this shift.Gasping for breathe noted. On 3L NC Comfort care implemented prior to this nurse start of shift. Given atropine , morphine for comfort...see JUL. Pt noted to cease breathing at 0330. Notified charge nurse, who followed procedures accordingly. Tao and PICC line removed intact.. without any complications.
--- NOTE | 2022-06-08 07:29 | PM.DDS ---
Discharge Summary Date and Time Date of : 06/08/22 Time of : 03:30 Provider Pronounced By: Eliza Eisenberg Probable Cause of Probable Cause of : septic shock Summary Hospital Course: 86-year-old female with septic shock was on pressor now her symptoms have improved and patient is off Levophed concerning for UTI so far urine and blood cultures are negative, patient has developed diarrhea, patient was complains of generalized pain and body aches,? patient with history diabetes? started the patient on gabapentin 100 mg t.i.d. on 06/02? patient hgb was 6.8 however repeat hgb was 8.1? patient baseline Scr was 1.1 now rising to 4.7 today but little better than yesterday it was 5.1 ? patient is seen by director of neighborhood service center and discussed, patient may need dialysis,on 06/02? I spoke with patient son Aubrey, and on 06/03 spoke with Venu, family has decied no dialysis, on 06/04? I spoke with Venu, family has placed patient on DNR, and recommeded consider hospice as patient may not be able to tolerate dialysis,on 06/06? her Na was trending 114 director of neighborhood service center gave her? 3% Nacl,? today patient daughter is present in the room, as caregiver,? patient is more somnolent and struggling I spoke with the patient's son Venu and has agreed to place the patient under comfort care and I have placed orders will continue to monitor. patient on 06/08/2022 at 03:30 Additional Data Confirmation of as documented by pronouncing clinician: Pupillary Reflex, Palpable Pulses, Response to Stimuli, Heart Tones and Breath Sounds Name of Provider Notified: [place] Time Provider Notified: 03:40 Provider Requests Autopsy: No Family Requests Autopsy: No Roll Reclaimer Notified: Yes Date [facility] Notified of : 06/08/22 Time [facility] Notified of : 03:55
== END 2022-06-08 03:30 | disposition expired | DRG 871 ==
LOC: ANHED 05-27 01:24 → ANHICU 05-27 02:33 → ANH2MED 06-02 14:45
PROVIDERS: Chiropractor; Internal Medicine; Internal Medicine Nephrology; Physician Assistant; Admitting Provider Internal Medicine; Emergency Provider General Practice; Visit Provider Family Medicine
DX: A41.9 Sepsis, unspecified organism (principal); N17.0 Acute kidney failure with tubular necrosis; R65.21 Severe sepsis with septic shock; N39.0 Urinary tract infection, site not specified; E87.1 Hypo-osmolality and hyponatremia; N18.4 Chronic kidney disease, stage 4 (severe); S81.811A Laceration without foreign body, right lower leg, initial encounter; S51.011A Laceration without foreign body of right elbow, initial encounter; I48.91 Unspecified atrial fibrillation; K74.60 Unspecified cirrhosis of liver; I50.9 Heart failure, unspecified; S00.83XA Contusion of other part of head, initial encounter; R19.7 Diarrhea, unspecified; E11.22 Type 2 diabetes mellitus with diabetic chronic kidney disease; D63.1 Anemia in chronic kidney disease; M10.9 Gout, unspecified; Z66 Do not resuscitate; Z20.822 Contact with and (suspected) exposure to COVID-19; Z79.01 Long term (current) use of anticoagulants; Z79.4 Long term (current) use of insulin; Z79.84 Long term (current) use of oral hypoglycemic drugs; Z79.899 Other long term (current) drug therapy; Z86.73 Personal history of transient ischemic attack (TIA), and cerebral infarction without residual deficits; Z88.5 Allergy status to narcotic agent; W18.39XA Other fall on same level, initial encounter
CPT/HCPCS: 36415; 36569; 36600; 70450; 70486; 71045; 71250; 72125; 73080; 73590; 74019; 74176; 76775; 80048; 80053; 80069; 80202; 81001; 82274; 82375; 82436; 82533; 82550; 82570; 82607; 82728; 82746; 82805; 82948; 83010; 83050; 83540; 83550; 83605; 83615; 83690; 83735; 83883; 83935; 84100; 84133; 84155; 84156; 84165; 84166; 84295; 84300; 84443; 84484; 85025; 85027; 85046; 85055; 85610; 85730; 85999; 86140; 86850; 86900; 86901; 86923; 87040; 87086; 87177; 87209; 87493; 87636; 93005; 93306; 96360; 96361; 97110; 97161; 97165; 97530; 97535; 99285; A9270; C1751; C9113; J0612; J1450; J1720; J1815; J1940; J2270; J2405; J2543; J3370; J3475; J3480; J7030; J7040; J7050; J7060; J7131; P9047